=== PATIENT | male | born 1950 | race Caucasian/White ===

== ENCOUNTER → 2018-10-02 | Outpatient (CLI) | payer MEDICARE, BC ==
[2018-10-02 08:39] LABS: HCT 54.8 % (39.0-53.0); HGB 17.5 gm/dL (13.0-17.5); MCH 30.4 pg (25.0-35.0); MCV 94.9 fL (80.0-100.0); Platelet Count 212 k/uL (150-450); RBC 5.77 m/uL (4.30-5.90); RDW 13.5 % (11.5-15.5); WBC 4.9 k/uL (3.8-10.6)
[2018-10-02 15:43] LABS: Albumin 4.6 g/dL (3.80-4.90); Albumin/Globulin Ratio 2.71 (1.20-2.10); Anion Gap 9.2 mmol/L (4.00-12.00); Calcium 9.2 mg/dL (8.7-10.3); Carbon Dioxide 23.8 mmol/L (21.6-31.8); Globulin 1.7 g/dL (2.1-3.7); Potassium 4.6 mmol/L (3.5-5.5); Total Bilirubin 0.6 mg/dL (0.3-1.2); Total Protein 6.3 g/dL (6.2-8.2)
== END | disposition home or self-care (01) ==
LOC: LABWHC1 07:01
PROVIDERS: ATTEND Surgery
DX: E89.6 Postprocedural adrenocortical (-medullary) hypofunction (principal)
CPT/HCPCS: 36415; 80053; 85027

== ENCOUNTER → 2019-02-01 | Outpatient (CLI) | payer BC, MEDICARE ==
[2019-02-01 13:31] LABS: Basophils % (A) 1 %; Eosinophils # (A) 0.1 k/uL (0-0.7); Eosinophils % (A) 2 %; HGB 17.4 gm/dL (13.0-17.5); Lymphocytes # (A) 1.2 k/uL (1.0-4.8); Lymphocytes % (A) 18 %; MCHC 33.5 g/dL (31.0-37.0); MCV 92.3 fL (80.0-100.0); Mean Platelet Volume 6.8; Monocytes # (A) 0.6 k/uL (0-1.0); Monocytes % (A) 9 %; Neutrophils # (A) 4.4 k/uL (1.3-7.7); Neutrophils % (A) 68 %; Platelet Count 213 k/uL (150-450); RBC 5.63 m/uL (4.30-5.90); RDW 13.2 % (11.5-15.5); WBC 6.5 k/uL (3.8-10.6)
[2019-02-01 16:03] LABS: Erythrocyte Sedimentation Rate 4 mm/hr (0-15)
== END ==
LOC: LABWHC1 12:04
PROVIDERS: ATTEND Psychiatry & Neurology Neurology
DX: R51 Headache (principal)
CPT/HCPCS: 36415; 85025; 85652; 86140

== ENCOUNTER → 2019-08-09 | Outpatient (CLI) | payer MEDICARE ==
--- NOTE | 2019-08-09 09:00 | FL ---
EXAMINATION TYPE: FL barium swallow DATE OF EXAM: 08/09/2019 CLINICAL HISTORY: Dysphasia for 3 months centered at thoracic inlet upper esophagus. TECHNIQUE: A double contrast esophagram is performed utilizing air and barium. A total of 37 second s of fluoroscopic time was utilized during procedure. 93 spot images are saved to PACS. COMPARISON: None FINDINGS: The esophagus shows some episodes of dysmotility with abnormal secondary and tertiary contr actions particularly when drinking prone position. No evidence of fixed hiatal hernia or stricture n oted. No diverticulum is present. No significant gastroesophageal reflux was seen during real time pe rformance of this study. IMPRESSION: Mild underlying esophageal dysmotility otherwise unremarkable study.
== END | disposition home or self-care (01) ==
LOC: RADUSWWP 07:41
PROVIDERS: ATTEND Otolaryngology
DX: K22.4 Dyskinesia of esophagus (principal)
CPT/HCPCS: 74220

== ENCOUNTER → 2020-05-29 | Outpatient (CLI) | payer MEDICARE ==
--- NOTE | 2020-05-29 10:39 | FL ---
EXAMINATION TYPE: FL barium swallow DATE OF EXAM: 05/29/2020 CLINICAL INDICATION: 70-year-old male R13.10, dysphagia and difficulty swallowing for 6 months. COMPARISON: 08/09/2019 Total Fluoroscopy Time: 2 minutes 30 seconds Total images: 41 FINDINGS: The swallowing mechanism is normal and hypopharyngeal anatomy is preserved. Mild residuals are noted in the piriform sinuses. The cervical and thoracic portions have a normal course and caliber. However, there is moderate dysmotility with tertiary peristaltic waves and some blunting in the secon debbie stripping waves. The mucosa is normal and no persistent filling defect is encountered. No hiatal hernia is present. No gastroesophageal reflux is identified. IMPRESSION: 1. No stricture, diverticulum, mucosal lesion, or suspicious filling defect along the esophagus. 2. Presbyesophagus with moderate dysmotility. 3. No hiatal hernia or gastroesophageal reflux identified.
== END | disposition home or self-care (01) ==
LOC: RADUSWWP 09:37
PROVIDERS: ATTEND Internal Medicine
DX: K22.8 Other specified diseases of esophagus (principal); R13.10 Dysphagia, unspecified
CPT/HCPCS: 74220

== ENCOUNTER 2020-12-27 07:51 | Day surgery (SDC) | payer MEDICARE ==
[2020-12-22 14:38] VITALS: BMI 32.1
[2020-12-27] MEDS ORDERED: SODIUM CHLORIDE 0.9% 500 ML 500 ML IV ONE (08:10)
[2020-12-27 08:14] LABS: Glucose,Whole Blood 111 mg/dL (75-99)
[2020-12-27 08:20] VITALS: TEMP 97.9
[2020-12-27] MEDS ORDERED: fentaNYL (PF) 50 MCG/ML 2 ML AMP ONE (08:46)
[2020-12-27] MEDS ORDERED: BENZOCAINE SPRAY 1 CAN MUCOUS MEM ONE (08:58)
[2020-12-27] MEDS ORDERED: fentaNYL (PF) 50 MCG/ML 2 ML AMP IM ONE (09:10)
[2020-12-27] MEDS: MIDAZOLAM 2 MG/2 ML VIAL IV ONE ×2 (09:10→09:13)
[2020-12-27] MEDS ORDERED: SODIUM CHLORIDE 0.9% 1,000 ML IV SCH (09:30)
[2020-12-27 10:01] VITALS: RESP 16
--- NOTE | 2020-12-27 10:24 | ECHOT ---
TRANSESOPHAGEAL ECHOCARDIOGRAM INDICATION: Evaluation of left atrial appendage. PROCEDURE: After explaining the procedure to the patient, its risks and the complications, his blood pressure, heart rate, O2 saturation was monitored. The throat was sprayed with Cetacaine. He received 2 mg intravenous Versed, 50 mcg intravenous fentanyl. The probe was introduced in the esophagus without difficulty. Images were obtained. Following that, the probe was removed. There was no immediate complication. FINDINGS: Left atrial size is mildly dilated. Left atrial appendage is normal. Left ventricular size and systolic function normal. The aortic valve appears normal. There is mild thickening of the posterior mitral valve leaflets with minimal prolapse and the tricuspid valve is normal. Descending thoracic aorta revealed mild atherosclerotic changes. No pericardial effusion was noted. Contrast bubble study revealed no evidence shunting across the interatrial septum. Doppler pulse wave and color Doppler obtained and revealed mild to moderate mitral with mild tricuspid regurgitation. There was no shunting by color Doppler study. CONCLUSION: 1. Mildly dilated left atrium with normal appearance of left atrial appendage. 2. Normal left ventricular size and systolic function. 3. Mild prolapse of the posterior mitral valve leaflets with mild to moderate mitral regurgitation. 4. Mild tricuspid regurgitation. 5. No shunting across the interatrial septum. 6. Mild atherosclerotic changes of the descending thoracic aorta. MMODL / IJN: [id number] /
[2020-12-27 11:13] VITALS: BP 104/58; PULSE 80
[2020-12-27] MEDS ORDERED: NON FORMULARY DRUG (Insulin Glargine 100 UNIT/ML Vial) SQ SCH (21:00)
[2020-12-27] MEDS ORDERED: LINAGLIPTIN 5 MG TABLET PO SCH (21:00)
[2020-12-27] MEDS ORDERED: metFORMIN 500 MG TAB PO SCH (21:00)
[2020-12-28] MEDS ORDERED: ATORVASTATIN 20 MG TAB PO SCH (09:00)
[2020-12-28] MEDS ORDERED: MULTIVITAMINS, THERA 1 EACH TAB PO SCH (09:00)
[2020-12-28] MEDS ORDERED: TAMSULOSIN 0.4 MG CAP.ER.24H PO SCH (09:00)
[2020-12-28] MEDS ORDERED: ASPIRIN 81 MG PO SCH (09:00)
== END 2020-12-27 10:52 | disposition home or self-care (01) ==
LOC: CATHCVL 07:51
PROVIDERS: ATTEND Internal Medicine Interventional Cardiology
DX: I08.1 Rheumatic disorders of both mitral and tricuspid valves (principal); I70.0 Atherosclerosis of aorta; I63.9 Cerebral infarction, unspecified; I10 Essential (primary) hypertension; E78.2 Mixed hyperlipidemia; E11.9 Type 2 diabetes mellitus without complications; Z87.891 Personal history of nicotine dependence; Z79.82 Long term (current) use of aspirin; Z79.4 Long term (current) use of insulin; Z79.899 Other long term (current) drug therapy
CPT/HCPCS: 93312; 93320; 93325; J2250; J3010

== ENCOUNTER 2021-01-23 07:18 | Day surgery (SDC) | payer MEDICARE ==
[2021-01-18 10:16] VITALS: BMI 31.5
[~2021-01-23 07:18] MED LIST: LIDOCAINE 1% (10MG/ML) FOR IV START INTRADERMA PRN
[2021-01-23 07:58] VITALS: TEMP 97.6
[2021-01-23 08:10] LABS: Glucose,Whole Blood 133 mg/dL (75-99)
[2021-01-23] MEDS: LACTATED RINGERS 1,000 ML IV SCH ×2 (08:10→08:24)
[2021-01-23] MEDS ORDERED: PROPOFOL 10 MG/ML 20 ML VIAL IV ONE (08:25)
--- NOTE | 2021-01-23 08:28 | P.GSHP ---
History of Present Illness H&P Date: 01/23/21 Chief Complaint: Colon cancer screening Patient here today for colonoscopy. Last colonoscopy approximately 5-6 years ago. Both parents with history of colon cancer. Patient says he had polyps 4. No bowel complaints currently. Past Medical History Past Medical History: Diabetes Mellitus, Hyperlipidemia, Hypertension Additional Past Medical History / Comment(s): has had "4 events with stroke like symptoms" has one kidney r/t benign tumor History of Any Multi-Drug Resistant Organisms: None Reported Past Surgical History: Hernia Repair, Joint Replacement, Orthopedic Surgery Additional Past Surgical History / Comment(s): Bilateral knee replacements, bilateral rotator cuff repairs, bilateral carpel tunnel surgies, adrenal gland removed. Past Anesthesia/Blood Transfusion Reactions: No Reported Reaction Additional Past Anesthesia/Blood Transfusion Reaction / Comment(s): no Past Psychological History: No Psychological Hx Reported Smoking Status: Former smoker Past Alcohol Use History: None Reported Additional Past Alcohol Use History / Comment(s): Quit smoking in 1979. Past Drug Use History: None Reported - Past Family History Mother Family Medical History: Cancer Additional Family Medical History / Comment(s): Colorectal and throat cancer. Father Family Medical History: Cancer Additional Family Medical History / Comment(s): Colorectal cancer. Medications and Allergies Home Medications Medication Instructions Recorded Confirmed Type Atorvastatin [Lipitor] 20 mg PO DAILY 04/07/14 01/23/21 History Multivitamins, Thera [Multivitamin] 1 each PO DAILY 04/07/14 01/23/21 History Aspirin [Adult Low Dose Aspirin EC] 81 mg PO DAILY 12/22/20 01/18/21 History Canagliflozin [Invokana] 300 mg PO DAILY 12/22/20 01/23/21 History Insulin Glargine [Lantus] 40 unit SQ HS 12/22/20 01/23/21 History Tamsulosin [Flomax] 0.4 mg PO DAILY 12/22/20 01/23/21 History lisinopriL [Zestril] 2.5 mg PO HS 12/22/20 01/23/21 History sitaGLIPtin PHOS/metFORMIN HCL 1 each PO BID 12/22/20 01/23/21 History [Janumet 50-1,000 mg Tablet] Allergies Allergy/AdvReac Type Severity Reaction Status Date / Time hydromorphone HCl Allergy Nausea & Verified 01/18/21 10:01 [From Dilaudid] Vomiting Surgical - Exam Vital Signs Temp Pulse Resp BP Pulse Ox 97.6 F 89 18 139/75 97 01/23/21 07:55 01/23/21 07:55 01/23/21 07:55 01/23/21 07:55 01/23/21 07:55 Physical exam: General: Well-developed, well-nourished HEENT: Normocephalic, sclerae nonicteric Abdomen: Nontender, nondistended Extremities: No edema Neuro: Alert and oriented Results - Labs Abnormal Lab Results - Last 24 Hours (Table) 01/23/21 Range/Units 08:07 POC Glucose (mg/dL) 133 H (75-99) mg/dL Assessment and Plan (1) Colon cancer screening Narrative/Plan: Will proceed with colonoscopy Current Visit: Yes Status: Acute Code(s): Z12.11 - ENCOUNTER FOR SCREENING FOR MALIGNANT NEOPLASM OF COLON SNOMED Code(s): 139580369
--- NOTE | 2021-01-23 08:41 | P.PCN ---
Date of Procedure: 01/23/21 Procedure(s) Performed: PREOPERATIVE DIAGNOSIS: Colon cancer screening, family history of colon cancer, history of polyps POSTOPERATIVE DIAGNOSIS: Transverse colon polyp, diverticulosis PROCEDURE: Colonoscopy with snare polypectomy ANESTHESIA: MAC SURGEON: Eulogio Salgado M.D. SPECIMENS: Transverse colon polyp ENDOSCOPIC PROCEDURE: The patient was placed on the endoscopy table in the left decubitus position. The Olympus colonoscope was inserted into the anus and passed under direct visualization to the base of the cecum. The appendiceal orifice was visualized. From that point the scope was slowly withdrawn inspecting all surfaces carefully. There were no neoplastic inflammatory or polypoid lesions throughout the cecum and ascending colon. In the transverse colon a small polyp was identified and removed using the snare with cautery technique. The remainder of the transverse descending sigmoid and rectum appeared normal. The patient had extensive left-sided diverticulosis. Digital rectal examination was normal. The patient was taken to the recovery room in stable condition per anesthesia guidelines. RECOMMENDATIONS: Resume diet. Follow colonoscopy 5 years.
[2021-01-23 08:45] VITALS: RESP 16
[2021-01-23 09:03] VITALS: BP 109/72; PULSE 71
== END 2021-01-23 09:20 | disposition home or self-care (01) ==
LOC: ORWHC2ENDO 07:18
PROVIDERS: ATTEND Surgery
DX: Z12.11 Encounter for screening for malignant neoplasm of colon (principal); K63.5 Polyp of colon; K57.30 Diverticulosis of large intestine without perforation or abscess without bleeding; E11.9 Type 2 diabetes mellitus without complications; E78.5 Hyperlipidemia, unspecified; I10 Essential (primary) hypertension; E89.6 Postprocedural adrenocortical (-medullary) hypofunction; Z86.010 Personal history of colon polyps; Z98.890 Other specified postprocedural states; Z87.898 Personal history of other specified conditions; Z90.5 Acquired absence of kidney; Z86.018 Personal history of other benign neoplasm; Z96.653 Presence of artificial knee joint, bilateral; Z87.891 Personal history of nicotine dependence; Z79.899 Other long term (current) drug therapy; Z79.82 Long term (current) use of aspirin; Z79.4 Long term (current) use of insulin; Z88.5 Allergy status to narcotic agent; Z80.0 Family history of malignant neoplasm of digestive organs; Z80.8 Family history of malignant neoplasm of other organs or systems
CPT/HCPCS: 88305; 45385; J2704

== ENCOUNTER → 2021-12-28 | Outpatient (CLI) | payer MEDICARE ==
--- NOTE | 2021-12-28 13:32 | US ---
EXAMINATION TYPE: US carotid duplex BILAT DATE OF EXAM: 12/28/2021 COMPARISON: NONE CLINICAL HISTORY: G45.9 TIA. TIA EXAM MEASUREMENTS: RIGHT: Peak Systolic Velocity (PSV) cm/sec ----- Right CCA: 110 ----- Right ICA: 89.6 ----- Right ECA: 141 ICA/CCA ratio: 0.81 RIGHT: End Diastole cm/sec ----- Right CCA: 14.9 ----- Right ICA: 22.7 ----- Right ECA: 19.0 LEFT: Peak Systolic Velocity (PSV) cm/sec ----- Left CCA: 74.0 ----- Left ICA: 98.1 ----- Left ECA: 174 ICA/CCA ratio: 1.33 LEFT: End Diastole cm/sec ----- Left CCA: 16.1 ----- Left ICA: 18.9 ----- Left ECA: 26.3 VERTEBRALS (direction of flow): Right Vertebral: Antegrade Left Vertebral: Antegrade Rhythm: Normal Mild plaque bilateral bifurcations. Mildly increased velocities left ECA IMPRESSION: 1. No significant flow-limiting stenosis bilateral internal carotid arteries. 2. There may be some moderate narrowing between 50 and 69% of the left external carotid artery. Criteria for Assigning % of Stenosis / Diameter reduction (Estimation based on the indirect measurements of the internal carotid artery velocities (ICA PSV). 1. Normal (no stenosis)=ICA PSV < 125 cm/s: ratio < 2.0: ICA EDV<40 cm/s. 2. Less than 50% stenosis=ICA PSV < 125 cm/s: ratio < 2.0: ICA EDV<40 cm/s. 3. 50 to 69% stenosis=ICA PSV of 125 to 230 cm/s: ration 2.0 ? 4.0: ICA EDV 40-100 cm/s. 4. Greater than 70% stenosis to near occlusion= ICA PSV > 230 cm/s: ratio > 4.0: ICA EDV > 100 cm/s. 5. Near occlusion= ICA PSV velocities may be low or undetectable: variable ratio and ICA EDV. 6. Total occlusion=unable to detect flow.
--- NOTE | 2021-12-28 15:43 | CT ---
EXAMINATION TYPE: CT heart w calcium score DATE OF EXAM: 12/28/2021 COMPARISON: None. HISTORY: Screening for cardiovascular disorder. 213.9. Type [address] DLP: 76.3 mGycm Automated exposure control for dose reduction was used. CT CALCIUM SCORING Coronary calcium is a marker for plaque (fatty deposits) in a blood vessel or atherosclerosis (harden ing of the arteries). The presence and amount of calcium detected in a coronary artery by the CT sca n, indicates the presence and amount of atherosclerotic plaque. These calcium deposits appear years before the development of heart disease symptoms such as chest pain and shortness of breath. A calcium score is computed for each of the coronary arteries based upon the volume and density of th e calcium deposits. This can be referred to as your calcified plaque burden. It does not correspond directly to the percentage of narrowing in the artery but does correlate with the severity of the un derlying coronary atherosclerosis. PROCEDURE TECHNIQUE - Prospective Gating was used. Slice thickness: 3mm. Density threshold (HU): 130, Pixel threshold: 3, Algorithm: discrete. RESULTS Region: LM Calcium Score (Agatston): 62.76 Volume (mm3): 49.14 Mass (g): 16.38 Region: RCA Calcium Score ([place]at[place]): 100.49 Volume (mm3): 107.66 Mass (g): 35.89 Region: LAD Calcium Score ([place]atston): 426.24 Volume (mm3): 325.75 Mass (g): 108.58 Region: CX Calcium Score (Agatston): 102.33 Volume (mm3): 84.47 Mass (g): 28.16 Region: PDA Calcium Score (Agatston): 0` Volume (mm3): 0 Mass (g): 0 Total: Calcium Score (Agatston): 691.82 Volume (mm3): 567.03 Mass (g): 189.01 Visualized portion of the liver is heterogeneously hypodense consistent with diffuse fatty infiltrati on otherwise no suspicious incidental finding. IMPRESSION: Calcium Score: 401 or higher Implication: Extensive atherosclerotic plaque Risk of Coronary Artery Disease: High likelihood of at least one significant coronary narrowing.
== END | disposition home or self-care (01) ==
LOC: RADUSWWP 12:44
PROVIDERS: ATTEND Internal Medicine
DX: G45.9 Transient cerebral ischemic attack, unspecified (principal); E11.65 Type 2 diabetes mellitus with hyperglycemia
CPT/HCPCS: 75571; 93880

== ENCOUNTER → 2022-01-30 | Outpatient (CLI) | payer MEDICARE ==
--- NOTE | 2022-01-30 19:30 | CT ---
EXAMINATION TYPE: CT abdomen pelvis wo/w con DATE OF EXAM: 01/30/2022 COMPARISON: CT dated 11/04/2014 HISTORY: LEFT SIDED FLANK PAIN. HX OF ADRENAL GLAND REMOVED, BLOOD SUPPLY CUT OFF TO THAT KIDNEY AND DOES NOT FUNCTION. CT DLP: 2857.10 mGycm Automated exposure control for dose reduction was used. TECHNIQUE: Helical acquisition of images was performed from the lung bases through the pelvis. CONTRAST: Performed with Oral Contrast and with IV Contrast, patient injected with 100mL mL of Isovue 300. FINDINGS: Previous right adrenal resection. Unremarkable adrenalectomy bed. Atrophic end-stage right kidney, pr ogressed compared to the previous with multiple calcifications within. Unremarkable left adrenal and left kidney. Unremarkable urinary bladder. Prostatic concretion. Unremarkable seminal vesicles. Evident hepatic steatosis. With this limitation, no definite hepatic focal lesion identified. No radi odense gallbladder calculi. Unremarkable spleen. Tiny millimetric calcifications are seen within the pancreatic head which could represent sequela of previous pancreatitis. Unremarkable pancreas otherwi se. Scattered arterial atherosclerotic calcifications. 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 Unremarkable stomach. Second part of the duodenum diverticulum measurin g 4 cm. Unremarkable small bowel. Extensive sigmoid colon diverticulosis with thickened wall. Milder divertic ulosis of the remainder of the colon. Recommend correlation with coloscopy results. Normal appendix. Subcentimeter bilateral inguinal lymph nodes. No pathologically enlarged lymph nodes in the abdomen o r the pelvis. No sizable ascites. Coronary arterial calcifications. Degenerative changes of the lower thoracic and lumbar spine. No aggressive bone lesion. IMPRESSION: Atrophic end-stage right kidney. Unremarkable adrenalectomy bed. No evidence of local tumor recurrenc e or metastatic disease seen in the abdomen or the pelvis. Incidental findings as described above.
== END | disposition home or self-care (01) ==
LOC: RADCTMAIN 12:24
PROVIDERS: ATTEND Internal Medicine
DX: R10.9 Unspecified abdominal pain (principal)
CPT/HCPCS: 82565; 84520; 74178; 36415; Q9967

== ENCOUNTER → 2022-03-13 | Outpatient (CLI) | payer MEDICARE ==
--- NOTE | 2022-03-14 08:04 | XR ---
EXAMINATION TYPE: XR lumbar spine 2 or 3V DATE OF EXAM: 03/13/2022 Comparison: None Clinical History: 72-year-old male M47.816 spondylosis lumbar region Findings: Multiple surgical clips right upper quadrant. 5 lumbar type vertebral bodies. Hypertrophic facet arth ropathy throughout. Vertebral body heights are preserved. Atherosclerotic calcifications throughout t he abdominal aorta with ectasia up to 2.8 cm. Moderate degenerative disc space narrowing upper lumbar spine and mild within the mid and lower lumbar spine. Associated disc bulging and endplate spondylos is. There is trace grade 1 retrolisthesis L2-L3 and L3-L4 and grade 1 anterolisthesis L5-S1. Impression: 1. Hypertrophic facet arthropathy throughout. Trace grade 1 retrolisthesis L2-L3 and L3-L4. Grade 1 a nterolisthesis L5-S1. 2. [id number] multilevel degenerative disc disease. 3. No vertebral compression collapse.
== END | disposition home or self-care (01) ==
LOC: RADXRMAIN 10:52
PROVIDERS: ATTEND Internal Medicine
DX: M47.896 Other spondylosis, lumbar region (principal); M51.36 Other intervertebral disc degeneration, lumbar region
CPT/HCPCS: 72100

== ENCOUNTER → 2022-07-04 | Outpatient (CLI) | payer MEDICARE ==
--- NOTE | 2022-07-04 09:10 | MR ---
EXAMINATION TYPE: MR lumbar spine wo con DATE OF EXAM: 07/04/2022 COMPARISON: Outside lumbar spine x-ray March 13, 2022. CT abdomen and pelvis January 30, 2022 HISTORY: LOW BACK PAIN for 2 years. Spondylosis. TECHNIQUE: Multiplanar, multisequence imaging of the lumbar spine is performed without IV contrast. FINDINGS: Sagittal images of the lumbar spine redemonstrate vertebral body heights and alignment to a ppear satisfactory. There are prominent Schmorl nodes anterior inferior L1 and superior central L4 en dplates redemonstrated. Multilevel disc desiccation is seen but this space heights are fairly well ma intained. The conus medullaris is normal in position and signal ending superior L1 level. The bone marrow signal intensity is within normal limits. Mild to moderate multilevel anterior spurring is red emonstrated. Axial images show T12-L1 level to appear within normal limits. Axial images at the L1-L2 level show mild to moderate broad disc bulge mildly effacing the anterior t hecal sac. Patent bilateral neural foramina. Axial images at L2-L3 level appear within normal limits. Axial images at L3-L4 level show [id number] facet arthropathy and ligamentum flavum hypertrophy mildly effacing posterolateral thecal sac, there is mild bilateral anterior inferior neural foramina l narrowing. Axial images at L4-L5 level show moderate to advanced facet arthropathy and ligamentum flavum hypertr ophy bilaterally effacing the posterior lateral thecal sac. Mild broad disc bulge. Bilateral neural f oramina remain patent. Axial images at L5-S1 level show mild broad disc bulge. There is moderate facet arthropathy bilateral ly. Spinal canal is preserved. Bilateral neural foramina are patent. Marked atrophy and cortical thinning to the right kidney is redemonstrated. IMPRESSION: Multilevel degenerative changes in the lumbar spine as detailed above.
== END | disposition home or self-care (01) ==
LOC: RADMRIMAIN 08:05
PROVIDERS: ATTEND Orthopaedic Surgery
DX: M43.17 Spondylolisthesis, lumbosacral region (principal); M51.36 Other intervertebral disc degeneration, lumbar region
CPT/HCPCS: 72148

== ENCOUNTER → 2022-10-16 | Outpatient (CLI) | payer MEDICARE ==
[2022-10-16 09:20] VITALS: BP 144/83; PULSE 77; RESP 16; TEMP 98.5
--- NOTE | 2022-10-16 14:40 | P.PAINPG ---
PQRS Measure Charge Sheet Comment: HISTORY OF PRESENT ILLNESS: 72 yr old male as a referral from Dr Galeano presents today w severe and chronic LBP secondary to DDD, spondylosis and facet arthropathy without myelopathy for evaluation. Pt states pain level is at 7/10 in intensity, constant, localized in the lower aspects of the lumbar spine, achy in character w shooting pain towards the BLEs. Pain is provoked by standing/walking 15 minutes. Pain is alleviated by indications (multiple), heat, PT which was ineffective, daily home stretching regimen, repositioning and rest. PMH: Diabetes Mellitus, Hyperlipidemia, HTN, Benign Kidney Tumor PSH: Hernia Repair, BL Knee Replacement, BL RCT Repair, BL CTR, Adrenal Gland Resection, Colonoscopy (2020) SH: Former tobacco user (Quit 1979), No ETOH abuse, No illicit drug use. FH: Mo- Colorectal & Esophageal CA. Fa- Colorectal CA. All: See list Meds: See list REVIEW OF ORGAN SYSTEMS: CONSTITUTIONAL: No fevers or chills. No recent weight loss. NEUROLOGICAL: + numbness and tingling along the distal extremities. No seizure disorders or headaches. MUSCULOSKELETAL: + pain PSYCHIATRIC: Denies current depression or suicidal thoughts. Physical Examinations : Constitutional : Cooperative , not in acute distress . Neurologic : Cranial nerve II to XII intact. No focal neurological deficits. Psychiatric : alert & oriented x 3. Matching mood & appropriate affect. Judgment & insight intact. Musculoskeletal : Cervical Spine Motor strength in the deltoid and biceps: Normal right side. Normal Left side Motor strength biceps and the wrist extensors: Normal right side . Normal left side Motor strength in the triceps muscle: Normal right side. Normal left side Deep tendon reflexes: Normal at the biceps. Normal at Brachioradialis. Normal at triceps Vertebral body tenderness to deep palpation over Cervical facet loading test: positive bilaterally Spurling test: positive bilaterally Neck distraction test: positive bilaterally Erlinda sign: positive bilaterally Lumbar spine Motor strength lower extremities ,thigh and legs 5/5 Right side , 5/5 Left side Deep tendon reflexes : Normal Knee Jerk. Normal Ankle Jerk Vertebral body tenderness over Lumbar facet Loading Test: positive Right / positive Left +jump reflex over BL L4-L5, L5-S1, R>L Range of motion of the lumbar spine Flexion 30 degrees, extension 10 degrees Straight Leg Raise test: Left/ Right positive at degree Angella test: positive right / positive left. Severe tenderness over the Sacroiliac joint on the Right / Left sides Gaenslen test: positive bilaterally Seated flexion test: positive bilaterally. Sacral spine : Severe tenderness over the Sacroiliac joint: right side / left side Range of motion: Flexion of the lumbar spine <60 degrees Range of motion: Extension of the lumbar spine <20 degrees Gaenslen's Test positive Terrell's Test positive Angella test: positive right side / left side Thigh Thrust Test Sacral Thrust Test Imaging: MRI without contrast of the lumbar spine from 07/04/22 reviewed Assessment/ Plan : Lumbar DDD Recommendation of MBB L4-L5, L5-S1 #1. May need a series of injections, up until RFA, for optimal pain relief. Risks, benefits of procedure discussed and patient verbalized understanding. Admits to aspirin or anti- coagulant use or medical history of diabetes. Protocol for discontinuation/ continuation of medications geoff procedure discussed. All questions answered. I have spent greater than 30 minutes on patient care today. Dr Richard was available by phone for the evaluation of this patient. The time was used to review the medical records including relevant urine studies and Prescription history (MAPs), review of the available imaging, evaluation and examination of the patient, coordination of care with the medical staff and if applicable referring physicians, as well as creation of the medical record PQRS Narrative: Smoking Status Former smoker Home Medications: Ambulatory Orders Atorvastatin [Lipitor] 20 mg PO DAILY 04/07/14 Multivitamins, Thera [Multivitamin] 1 each PO DAILY 04/07/14 Aspirin [Adult Low Dose Aspirin EC] 81 mg PO DAILY 12/22/20 Canagliflozin [Invokana] 300 mg PO DAILY 12/22/20 Insulin Glargine [Lantus] 40 unit SQ HS 12/22/20 Tamsulosin [Flomax] 0.4 mg PO DAILY 12/22/20 lisinopriL [Zestril] 2.5 mg PO HS 12/22/20 sitaGLIPtin PHOS/metFORMIN HCL [Janumet 50-1,000 mg Tablet] 1 each PO BID 12/22/20 Controlled Substance Measures - Controlled Substance Measures Is patient prescribed a controlled substance at discharge?: No
== END ==
LOC: PNWHC3 08:45
PROVIDERS: ATTEND Specialist
DX: M51.36 Other intervertebral disc degeneration, lumbar region (principal); Z79.01 Long term (current) use of anticoagulants; E11.9 Type 2 diabetes mellitus without complications; Z79.84 Long term (current) use of oral hypoglycemic drugs; Z88.5 Allergy status to narcotic agent; Z87.891 Personal history of nicotine dependence
CPT/HCPCS: 99211

== ENCOUNTER 2022-11-01 10:22 | Day surgery (SDC) | payer MEDICARE ==
[2022-11-01] MEDS ORDERED: LACTATED RINGERS 1,000 ML IV ONE ×2 (10:35→11:21)
[2022-11-01 10:55] VITALS: TEMP 97.4
[2022-11-01 10:57] LABS: Glucose,Whole Blood 120 mg/dL (70-110)
[2022-11-01] MEDS ORDERED: ROPIVACAINE 5 MG/ML 20 ML AMPULE ONE (10:59)
[2022-11-01] MEDS ORDERED: methylPREDNISolone ACETATE 40 MG/ML 1 ML VIAL ONE (10:59)
[2022-11-01] MEDS ORDERED: MIDAZOLAM 2 MG/2 ML VIAL ONE (10:59)
[2022-11-01] MEDS ORDERED: fentaNYL (PF) 50 MCG/ML 2 ML AMP ONE (10:59)
--- NOTE | 2022-11-01 11:15 | P.PCN ---
Date of Procedure: 11/01/22 Procedure(s) Performed: PREOPERATIVE DIAGNOSIS : 1- Lumbar spondylosis with Facet Arthropathy without myelopathy . 2- Lumber degenerative disc disease POSTOPERATIVE DIAGNOSIS: 1- Lumbar spondylosis with Facet Arthropathy without myelopathy . 2- Lumber degenerative disc disease PROCEDURE: Diagnostic bilateral L3 , L4 , and L5 medial branch block under fluoroscopy guidance(fluoroscopy images available in the radiology Department ) ( To target the facet joint between bilateral L4-5 , and L5-S1 )# 1st ANESTHESIA:, Monitored anesthesia care as per anesthesia department. EBL: Minimal COMPLICATION: None PROCEDURE INDICATION: Chronic low back pain secondary to Facet arthropathy unresponsive to conservative treatment. PROCEDURE DESCRIPTION: the patient was seen and identified in the preop holding area , risks and benefits and possible complications of the procedure and alternative were discussed with the patient, and the patient agreed to proceed with the procedure and signed the consent and vital signs monitored during the procedure and fluoroscopy was used to maximize the benefit and accuracy of the needle placement, and sedation was given to decrease patient a nxiety, patient was taken to the procedure room and placed in prone position vital signs monitored in the back prepped with chlorhexidine X3 then under strict sterile technique using a right oblique fluoroscopy ,the junction of the transverse process and the superior articulating process of the right L3 , L4 , and L5 vertebra which corresponding to the fluoroscopy image of the eye of the Shashi dog on the block side for the medial branches and subsequently , after local infiltration of skin and subcu tissuies with Ropivacaine 0.5 % , one mL at each level ,then 22-gauge Quincke-type needles , 3 needle was used , each one of them placed at the junction of the base of the transverse process and the superior articular process at the appropriate level, and the needle was advanced until the periosteum contacted, needle placement confirmed with AP oblique and lateral view and after appropriate needle placement confirmed, and after negative aspiration for heme and CSF and there was no paresthesia 1-1/2 mL of Ropivacaine 0.5% mixed with 20 mg Depo-Medrol , then half mL injected at each level after negative aspiration the needle subsequently removed and the same procedure repeated for the left side at left side at L3 , L4 and L5 levels. At the end of the procedure and the needles removed and a bandage applied after the skin was cleaned the cleaning solution patient taken to recovery room in stable condition and monitors in the recovery room for 20-30 minutes and discharged home in stable condition after discharge criteria met and patient will follow up with the pain clinic in 2-4 weeks
[2022-11-01] MEDS ORDERED: IV FLUID CONTINUATION 600 ML IV ONE (11:21)
[2022-11-01 11:44] VITALS: BP 120/64; PULSE 70; RESP 17
--- NOTE | 2022-11-01 11:54 | FL ---
Fluoroscopy INDICATION: Pain FINDINGS: Fluoroscopy time: 8 seconds. Images obtained: 4. IMPRESSIONS: 1. Documentation of fluoroscopy.
== END 2022-11-01 11:58 | disposition home or self-care (01) ==
LOC: ORPAIN 10:22
PROVIDERS: ATTEND Specialist
DX: M47.816 Spondylosis without myelopathy or radiculopathy, lumbar region (principal); M51.36 Other intervertebral disc degeneration, lumbar region; G89.29 Other chronic pain; Z98.890 Other specified postprocedural states; Z85.858 Personal history of malignant neoplasm of other endocrine glands; Z90.89 Acquired absence of other organs; Z88.8 Allergy status to other drugs, medicaments and biological substances
CPT/HCPCS: 64493; 64494; J2250; J1030; J3010; J2795

== ENCOUNTER 2022-11-29 08:46 | Day surgery (SDC) | payer MEDICARE ==
[~2022-11-29 08:46] MED LIST changes: +LACTATED RINGERS 1,000 ML IV SCH; -LIDOCAINE 1% (10MG/ML) FOR IV START INTRADERMA PRN
[2022-11-29 09:05] VITALS: TEMP 98
[2022-11-29 09:11] LABS: Glucose,Whole Blood 118 mg/dL (70-110)
[2022-11-29] MEDS ORDERED: ROPIVACAINE 5 MG/ML 20 ML AMPULE ONE (09:24)
[2022-11-29] MEDS ORDERED: TRIAMCINOLONE ACETONIDE 40 MG/ML 1 ML VIAL ONE (09:24)
[2022-11-29] MEDS ORDERED: MIDAZOLAM 2 MG/2 ML VIAL ONE (09:26)
--- NOTE | 2022-11-29 09:42 | P.PCN ---
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 2- Lumber degenerative disc disease POSTOPERATIVE DIAGNOSIS: 1- Lumbar spondylosis with Facet Arthropathy without myelopathy . 2- Lumber degenerative disc disease PROCEDURE: Diagnostic bilateral L4 -5 , and L5-S1 medial branch block under fluoroscopy Physician: Anila Paul MD ANESTHESIA: Local with 1% lidocaine; IV moderate conscious sedation with Versed 2 mg with anesthesia Department . EBL: Negligible COMPLICATION: None. PROCEDURE INDICATION: Chronic low back pain secondary to Facet arthropathy unresponsive to conservative treatment. PROCEDURE DESCRIPTION: the patient was seen and identified in the preop holding area , risks and benefits and possible complications of the procedure and alternatives were discussed with the patient, and the patient agreed to proceed with the procedure and signed the consent. IV was started and vital signs monitored during the procedure and fluoroscopy was used to maximize the benefit and accuracy of the needle placement, sedation was given to decrease patient anxiety, patient was taken to the procedure room and placed in prone position vital signs monitored. The patient was brought into the procedure room and placed in prone position. Skin was prepped with Chloraprep and draped in a sterile manner. Lidocaine 1% was used to numb the skin up at the target points that were chosen as follows: at the L5-S1 level which corresponds to the dorsal ramus of L5 the target points were at the superior medial aspect of the sacral ala on each side of the spine on the AP view of fluoroscopy, and for the L3 and L4 medial branches the target points were the connection between the transverse process and the superior articular process of L4 and L5 respectively on the oblique views of fluoroscopy. I used 22-gauge 5 inch Quincke spinal needles for this procedure and after contacting bone at the target points mentioned above I injected 1 mL of a mixture of Kenalog 40 mg +5 MLS of Ropivacaine 0.5% PF . Patient tolerated procedure well. At the end of the procedure the needles removed and a bandage applied after the skin was cleaned the cleaning solution. patient was then taken to the recovery room in stable condition and monitored in the recovery room for 20-30 minutes and discharged home in stable condition after discharge criteria met . A copy of the needle placement picture was saved to the C-arm machine. Sedation time: Sedation was provided by the anesthesia Department
[2022-11-29] MEDS ORDERED: IV FLUID CONTINUATION 650 ML IV ONE (09:48)
--- NOTE | 2022-11-29 09:53 | FL ---
Intraoperative/procedural fluoroscopic services were provided for lumbar facet block. Total fluorosco py time is 7 seconds with a total of 4 submitted images to PACS. Please see the operative note for fu rther details.
[2022-11-29 10:20] VITALS: BP 110/75; PULSE 104; RESP 18
== END 2022-11-29 10:22 | disposition home or self-care (01) ==
LOC: ORPAIN 08:46
PROVIDERS: ATTEND Anesthesiology
DX: M47.816 Spondylosis without myelopathy or radiculopathy, lumbar region (principal); M51.36 Other intervertebral disc degeneration, lumbar region; G89.29 Other chronic pain; Z88.5 Allergy status to narcotic agent; E11.9 Type 2 diabetes mellitus without complications; E78.5 Hyperlipidemia, unspecified; Z87.891 Personal history of nicotine dependence; Z79.82 Long term (current) use of aspirin; Z96.659 Presence of unspecified artificial knee joint; Z98.890 Other specified postprocedural states; Z79.83 Long term (current) use of bisphosphonates; Z79.01 Long term (current) use of anticoagulants; Z79.84 Long term (current) use of oral hypoglycemic drugs; Z79.899 Other long term (current) drug therapy
CPT/HCPCS: 64493; 64494 ×2; J2250; J3301; J2795

== ENCOUNTER → 2022-12-16 | Outpatient (CLI) | payer MEDICARE ==
[2022-12-16 09:17] VITALS: BP 116/71; PULSE 82; RESP 18; TEMP 98.2
--- NOTE | 2022-12-16 15:22 | P.PAINPG ---
PQRS Measure Charge Sheet Comment: A 72 yr old male with a history of severe and chronic low back pain secondary to lumbar DDD and spondylosis with facet arthropathy without myelopathy presents today for evaluation s/p BL facet block of the medial branches L4-L5, L5-S1 #2. Pt states he experienced 100 % pain relief x 1 day s/p both procedures. Pain level is provoked at 7 /10 in intensity, constant, localized in the lower lumbar spine, sharp in character w shooting towards the BL flanks. Pain is provoked by standing/ walking for periods of 10 min or more. Pain is alleviated with medications, injections, heat, PT in 2021 which provided little relief, home exercise as tolerated, repositioning and rest. Interventional pain procedures completed include BL L3-L5 x1 Patient is currently on Percocet, Flexeril Patient denies any side effects of the medication(s), denies excessive drowsiness or sleepiness, denies suicidal ideation and reports that the current pain medication is helping to control the pain and improve activities of daily living. Patient denies any motor or sensory deficits. Patient denies any fever or night sweats, denies any change in the bowel movements or urination. Physical Examination: -Constitutional: Cooperative. Not in acute distress . - Neurologic: Cranial nerve II to XII intact. No focal neurological defi cits. - Psychatric: Alert & oriented x 3. Matching mood & appropriate affect. Judgment and insight intact. - Musculoskeletal: Cervical spine: Muscle bulk/ tone/ strength in the bilateral upper extremities normal Vertebral body tenderness to palpation over Spurling test positive Distraction test positive Facet loading test positive Thoracic spine Muscle bulk / tone/ strength in the bilateral paraspinal muscles normal Vertebral body tender to palpation over Facet loading test positive Lumbar spine: Motor bulk/ tone/ strength lower extremities , thigh and legs : 5/5 Deep tendon reflexes : Normal Knee Jerk. Normal Ankle Jerk . Vertebral body tenderness to palpation over Lumbar Facet Loading Test positive jump reflex over BL L4-L5, L5-S1 facets Straight Leg Raise: positive at 30 degrees right side/ left side Gaenslen's Test positive Sacral spine : Severe tenderness over the Sacroiliac joint: right side / left side Range of motion: Flexion of the lumbar spine <60 degrees Range of motion: Extension of the lumbar spine <20 degrees Gaenslen's Test positive Angella test: positive right side / left side Thigh Thrust Test Sacral Thrust Test Assessment and plan: Chronic low back pain secondary to lumbar degenerative disc disease, spondylosis with facet arthropathy without myelopathy Recommendation of BL RFA L4-L5, L5-S1. Pt exhibited sufficient pain relief w prior BL facet blocks of the medial branches. Risks, benefits of procedure discussed and pt verbalized understanding. Admits to anticoagulant use or medical history of diabetes. Protocol for discontinuation/ continuation of medications geoff procedure discussed. All patient questions answered I have spent less than 30 minutes on patient care today. Dr Richard was available by phone for the evaluation of this patient. The time was used to review the medical records including relevant urine studies and Prescription history (MAPs), review of the available imaging, evaluation and examination of the patient, coordination of care with the medical staff and if applicable referring physicians, as well as creation of the medical record - Pain Location Lower Back Non-Pharmacological Interventions: Heat, Home Exercise, Inactivity, Physical Therapy, Position/Reposition, Sitting, Stretching Pharmacological Interventions: Block, PRN Medication PQRS Narrative: Smoking Status Former smoker Hx Alcohol Use (MH) No Home Medications: Ambulatory Orders Atorvastatin [Lipitor] 20 mg PO DAILY 04/07/14 Multivitamins, Thera [Multivitamin] 1 each PO DAILY 04/07/14 Aspirin [Adult Low Dose Aspirin EC] 81 mg PO DAILY 12/22/20 Insulin Glargine [Lantus] 50 unit SQ HS 12/22/20 Tamsulosin [Flomax] 0.4 mg PO DAILY 12/22/20 lisinopriL [Zestril] 2.5 mg PO HS 12/22/20 sitaGLIPtin PHOS/metFORMIN HCL [Janumet 50-1,000 mg Tablet] 1 each PO BID 12/22/20 Dapagliflozin Propanediol [Farxiga] 10 mg PO DAILY 11/29/22 Repaglinide [Prandin] 2 mg PO TID 11/29/22 Controlled Substance Measures - Controlled Substance Measures Is patient prescribed a controlled substance at discharge?: No
== END ==
LOC: PNWHC3 08:52
PROVIDERS: ATTEND Specialist
DX: M47.816 Spondylosis without myelopathy or radiculopathy, lumbar region (principal); M51.36 Other intervertebral disc degeneration, lumbar region; E11.9 Type 2 diabetes mellitus without complications; Z79.4 Long term (current) use of insulin; Z79.84 Long term (current) use of oral hypoglycemic drugs; Z88.5 Allergy status to narcotic agent; Z87.891 Personal history of nicotine dependence
CPT/HCPCS: 99211

== ENCOUNTER → 2023-02-10 | Outpatient (CLI) | payer MEDICARE ==
[2023-02-10 09:25] VITALS: BP 134/76; PULSE 81; RESP 118; TEMP 98.8
--- NOTE | 2023-02-10 14:16 | P.PAINPG ---
PQRS Measure Charge Sheet Comment: A 72 yr old male with a history of severe and chronic LBP x 9 yrs secondary to lumbar DDD and spondylosis with facet arthropathy without myelopathy presents today for evaluation s/p BL RFA L4-L5, L5-S1. Pt states he experienced 85 % pain relief s/p procedure. Pain level is provoked at 1/10 in intensity, constant, localized in the lumbar spine, dull in character w/o shooting pain. Pain is provoked by over activity. Pain is alleviated with heat, repositioning, injections and rest. Interventional pain procedures completed include BL MBB L3-L5 x2 Patient is currently on DENIES Patient denies any side effects of the medication(s), denies excessive drowsiness or sleepiness, denies suicidal ideation and reports that the current pain medication is helping to control the pain and improve activities of daily living. Patient denies any motor or sensory deficits. Patient denies any fever or night sweats, denies any change in the bowel movements or urination. Physical Examination: -Constitutional: Cooperative. Not in acute distress . - Neurologic: Cranial nerve II to XII intact. No focal neurological d eficits. - Psychatric: Alert & oriented x 3. Matching mood & appropriate affect. Judgment and insight intact. - Musculoskeletal: Cervical spine: Muscle bulk/ tone/ strength in the bilateral upper extremities normal Vertebral body tenderness to palpation over Spurling test positive Distraction test positive Facet loading test positive TTP Thoracic spine Muscle bulk / tone/ strength in the bilateral paraspinal muscles normal Vertebral body tender to palpation over Facet loading test positive TTP Lumbar spine: Motor bulk/ tone/ strength lower extremities , thigh and legs : 5/5 Deep tendon reflexes : Normal Knee Jerk. Normal Ankle Jerk . Vertebral body tenderness to palpation over Lumbar Facet Loading Test positive Straight Leg Raise: positive at 30 degrees right side/ left side Gaenslen's Test positive Sacral spine : Severe tenderness over the Sacroiliac joint: right side / left side Range of motion: Flexion of the lumbar spine <60 degrees Range of motion: Extension of the lumbar spine <20 degrees Gaenslen's Test positive right side / left side Angella test: positive right side / left side Thigh Thrust Test positive right side / left side Sacral Thrust Test positive right side / left side Assessment and plan: Chronic LBP secondary to lumbar DDD, spondylosis with facet arthropathy without myelopathy Pt exhibited sufficicient and substantial pain relief w RFA procedure. He will manage residual pain at home and may return to this clinic on an as needed basis. All questions answered. I have spent less than 30 minutes on patient care today. Dr Richard was available by phone for the evaluation of this patient. The time was used to review the medical records including relevant urine studies and Prescription history (MAPs), review of the available imaging, evaluation and examination of the patient, coordination of care with the medical staff and if applicable referring physicians, as well as creation of the medical record PQRS Narrative: Smoking Status Former smoker Hx Alcohol Use (MH) No Home Medications: Ambulatory Orders Atorvastatin [Lipitor] 20 mg PO DAILY 04/07/14 Multivitamins, Thera [Multivitamin] 1 each PO DAILY 04/07/14 Aspirin [Adult Low Dose Aspirin EC] 81 mg PO DAILY 12/22/20 Insulin Glargine [Lantus] 50 unit SQ HS 12/22/20 Tamsulosin [Flomax] 0.4 mg PO DAILY 12/22/20 lisinopriL [Zestril] 2.5 mg PO HS 12/22/20 sitaGLIPtin PHOS/metFORMIN HCL [Janumet 50-1,000 mg Tablet] 1 each PO BID 12/22/20 Dapagliflozin Propanediol [Farxiga] 10 mg PO DAILY 11/29/22 Baclofen 10 mg PO Q12HR PRN 12/16/22 HYDROcodone/APAP 5-325MG [[place] 5-325] 2 tab PO Q6HR PRN 12/16/22 Tirzepatide [Mounjaro] 2.5 mg SQ WE 01/14/23 Controlled Substance Measures - Controlled Substance Measures Is patient prescribed a controlled substance at discharge?: No
== END ==
LOC: PNWHC3 08:45
PROVIDERS: ATTEND Specialist
DX: M51.36 Other intervertebral disc degeneration, lumbar region (principal); M47.816 Spondylosis without myelopathy or radiculopathy, lumbar region; Z87.891 Personal history of nicotine dependence; Z88.5 Allergy status to narcotic agent
CPT/HCPCS: 99211

== ENCOUNTER 2023-05-15 11:16 | Observation (INO) | payer MEDICARE ==
[2023-05-15] MEDS ORDERED: SODIUM CHLORIDE 0.9% 1,000 ML IV ONE (11:58)
[2023-05-15 12:38] LABS: Appearance,Urine Clear (Clear); Bilirubin,Urine Negative (Negative); Blood,Urine Negative (Negative); Color,Urine Yellow; Glucose,Urine (UA) 4+ (Negative); Ketones,Urine Negative (Negative); Leukocyte Esterase,Urine Negative (Negative); Nitrite,Urine Negative (Negative); PH, Urine 5.5 (5.0-8.0); Protein,Urine Trace (Negative); Specific Gravity,Urine 1.029 (1.001-1.035); Urobilinogen,Urine <2.0 mg/dL (<2.0)
[2023-05-15 12:39] LABS: Basophils % (A) 0 %; Eosinophils # (A) 0.1 k/uL (0-0.7); Eosinophils % (A) 1 %; HCT 46.2 % (39.0-53.0); HGB 15.5 gm/dL (13.0-17.5); Lymphocytes # (A) 0.7 k/uL (1.0-4.8); Lymphocytes % (A) 14 %; MCHC 33.6 g/dL (31.0-37.0); MCV 92.1 fL (80.0-100.0); Mean Platelet Volume 7.7; Monocytes # (A) 0.5 k/uL (0-1.0); Monocytes % (A) 9 %; Neutrophils # (A) 3.9 k/uL (1.3-7.7); Neutrophils % (A) 73 %; Platelet Count 250 k/uL (150-450); RBC 5.01 m/uL (4.30-5.90); RDW 13.9 % (11.5-15.5); WBC 5.3 k/uL (3.8-10.6)
[2023-05-15 12:57] LABS: Amphetamine Screen,Urine Not Detected (NotDetected); Barbiturate Screen,Urine Not Detected (NotDetected); Benzodiazepines Screen,Urine Not Detected (NotDetected); Cocaine Screen,Urine Not Detected (NotDetected); Methadone Screen, Urine Not Detected (NotDetected); Opiate Screen,Urine Not Detected (NotDetected); Oxycodone Screen, Urine Not Detected (NotDetected); Phencyclidine Screen,Urine Not Detected (NotDetected); Tricyclic Antidepressant,Urine Not Detected (NotDetected); Urn Cannabinoid Scrn Detected (NotDetected)
[2023-05-15 13:02] LABS: Prothrombin Time 10.2 sec (9.0-12.0)
--- NOTE | 2023-05-15 13:15 | XR ---
EXAMINATION TYPE: XR chest 2V DATE OF EXAM: 05/15/2023 COMPARISON: NONE HISTORY: Shortness of breath TECHNIQUE: Frontal and lateral views of the chest are obtained. FINDINGS: Scattered senescent parenchymal changes noted. Hyperinflation compatible with COPD. No evidence for infiltrate. No evidence for atelectasis. Heart size is stable. Mediastinal structures are stable and grossly unremarkable. No evidence for hilar prominence. Degenerative changes dorsal spine. IMPRESSION: 1. No evidence for acute pulmonary disease.
--- NOTE | 2023-05-15 13:34 | CT ---
EXAMINATION TYPE: CT brain wo con CT DLP: 1133.4 mGycm, Automated exposure control for dose reduction was used. DATE OF EXAM: 05/15/2023 1:26 PM COMPARISON: Prior CT Brain from 06/11/2011, MRI brain 06/12/2011. CLINICAL INDICATION:Male, 73 years old with history of Altered mental status, Intermittent confusion, AMS since yesterday TECHNIQUE: Brain: Multiple axial CT images of the brain were obtained without IV contrast. Coronal and sagittal reformats reviewed. FINDINGS: Brain: Extra-axial spaces: No abnormal extra-axial fluid collections. Ventricular system: Within normal limits Cerebral parenchyma: Cerebral atrophy. No acute intraparenchymal hemorrhage or mass effect. The lindquist -white junction is well differentiated. Scattered hypoattenuating areas are seen within the white mat ter. Cerebellum: Remote left cerebellar ischemic injury. Nonspecific bilateral basal ganglia calcification s. Mass effect: No evidence of midline shift. Intracranial vasculature: Atherosclerotic calcifications of the intracranial vessels. Soft tissues: Normal. Calvarium/osseous structures: No depressed skull fracture. Paranasal sinuses and mastoid air cells: Clear Visualized orbits: Orbital contents are intact. IMPRESSION: 1. No acute intracranial process. 2. Nonspecific white matter changes, likely secondary to chronic small vessel ischemic disease. 3. Remote left cerebellar ischemic injury.
[2023-05-15 14:16] LABS: ALT 23 U/L (4-49); AST 22 U/L (17-59); African American GFR (CKD) >90 (>60 ml/min/1.73 sqM); Albumin 3.5 g/dL (3.5-5.0); Alcohol <10 mg/dL; Alkaline Phosphatase 87 U/L (38-126); Anion Gap 3 mmol/L; Blood Urea Nitrogen 11 mg/dL (9-20); Calcium 8.4 mg/dL (8.4-10.2); Carbon Dioxide 29 mmol/L (22-30); Chloride 104 mmol/L (98-107); Glucose 93 mg/dL (74-99); Non-African American GFR(CKD) >90 (>60 ml/min/1.73 sqM); Potassium 4.2 mmol/L (3.5-5.1); Sodium 136 mmol/L (137-145); Total Bilirubin 0.7 mg/dL (0.2-1.3); Total Protein 5.7 g/dL (6.3-8.2)
[2023-05-15 14:40] LABS: Glucose,Whole Blood 81 mg/dL (70-110)
[2023-05-15] MEDS ORDERED: ACETAMINOPHEN TAB 325 MG TAB PO PRN (14:54)
[2023-05-15] MEDS ORDERED: NALOXONE 0.4 MG/ML 1 ML VIAL IV PRN (14:54)
[2023-05-15] MEDS ORDERED: ONDANSETRON 4 MG/2 ML VIAL IVP PRN (14:54)
--- NOTE | 2023-05-15 15:39 | ED ---
General Adult HPI - General Chief complaint: Neuro Symptoms/Deficit Stated complaint: Poss TIA Time Seen by Provider: 05/15/23 11:49 Source: patient, RN notes reviewed, old records reviewed Mode of arrival: ambulatory Limitations: no limitations - History of Present Illness Initial comments: Patient is a 73-year-old male who presents emergency Department complaining of the brain fog and not acting like himself. Was sent by his PCP, Dr. Sam for possible admission as well as evaluation. Denies any chest pain or shortness of breath. Denies any abdominal pain, nausea, vomiting. Denies any urinary complaints. States he has been having these symptoms since yesterday. Feels lightheaded, and "out of it." Denies any obvious weakness or numbness. Has no other acute complaints at this time. No history of stroke as far as he knows. Patient states he had 4 baby aspirin prior to arrival. Presents for further evaluation. No fevers or sick contacts. Symptoms have been waxing and waning since yesterday. - Related Data Home Medications Medication Instructions Recorded Confirmed Multivitamins, Thera [Multivitamin] 1 each PO DAILY 04/07/14 05/15/23 Aspirin [Adult Low Dose Aspirin EC] 81 mg PO DAILY 12/22/20 05/15/23 Insulin Glargine [Lantus] 50 unit SQ HS 12/22/20 05/15/23 Tamsulosin [Flomax] 0.4 mg PO DAILY 12/22/20 05/15/23 lisinopriL [Zestril] 2.5 mg PO HS 12/22/20 05/15/23 sitaGLIPtin PHOS/metFORMIN HCL 1 tab PO BID 12/22/20 05/15/23 [Janumet 50-1,000 mg Tablet] Dapagliflozin Propanediol [Farxiga] 10 mg PO DAILY 11/29/22 05/15/23 Baclofen 10 mg PO Q12HR PRN 12/16/22 05/15/23 Atorvastatin [Lipitor] 40 mg PO HS 05/15/23 05/15/23 HYDROcodone/APAP 7.5-325MG [[place] 1 tab PO BID PRN 05/15/23 05/15/23 7.5-325] Tirzepatide [Mounjaro] 5 mg SQ WE 05/15/23 05/15/23 Allergies Allergy/AdvReac Type Severity Reaction Status Date / Time hydromorphone HCl Allergy Nausea & Verified 05/15/23 12:17 [From Dilaudid] Vomiting Review of Systems ROS Statement: Those systems with pertinent positive or pertinent negative responses have been documented in the HPI. Review of Systems: CONST: Denies fever EYES: Denies blurry vision ENT: Denies nasal congestion C/V: Denies Chest pain RESP: Denies shortness of breath GI: Denies abdominal pain : Denies dysuria SKIN: Denies rash. MSK: Denies joint pain. NEURO: Denies headache ROS Other: All systems not noted in ROS Statement are negative. Past Medical History Past Medical History: Diabetes Mellitus, Hyperlipidemia, Hypertension, Osteoarthritis (OA), Prostate Disorder Additional Past Medical History / Comment(s): has had "4 events with stroke like symptoms," couple of years ago. has one kidney r/t benign tumor, arthritis lower back. History of Any Multi-Drug Resistant Organisms: None Reported Past Surgical History: Hernia Repair, Joint Replacement, Orthopedic Surgery Additional Past Surgical History / Comment(s): bilateral knee replacement, bilateral rotator cuff repair. 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 throat cancer General Exam - General Exam Comments Initial Comments: General: Appears in no acute distress. HEAD: Normal with no signs of head trauma. EYES: PERRLA, EOMI, conjunctiva normal, no discharge. Pupils are 3 mm equal bilaterally. ENT: Hearing grossly intact, normal oropharynx. RESPIRATORY: Clear breath sounds bilaterally. No wheezes, rales, or rhonchi. C/V: Regular rate and rhythm. S1 and S2 auscultated, no edema, peripheral pulses 2+ and intact throughout ABD: Abd is soft, nontender, nondistended EXT: Normal range of motion, no obvious deformity SKIN: No rashes or lesions observed on exposed skin. NEURO: Alert and oriented 4. Cranial nerves II through XII are intact. No focal sensory strength deficits. Bilateral hand switchboard wirer weakness, equal b ilaterally. Patient has normal strength at the elbow, as well as shoulders on exam. Hand switchboard wirer weakness likely secondary to arthritis. GCS of 15. NIH is 0. Ambulates without difficulty. Cerebellar function within acceptable presents as evidenced by normal finger to nose testing and [id number] testing. Limitations: no limitations Course Vital Signs 05/15/23 11:16 Temperature 98.2 F Pulse Rate 71 Respiratory 18 Rate Blood Pressure 136/83 O2 Sat by Pulse 96 Oximetry Medical Decision Making - Medical Decision Making Was pt. sent in by a medical professional or institution (, PA, VEN[employer]IAN BL[employer]ER [employer] REPAIRER, urgent care, hospital, or retirement...) When possible be specific @ -No Did you speak to anyone other than the patient for history (EMS, parent, family, police, friend...)? What history was obtained from this source @ -No Did you review nursing and triage notes (agree or disagree)? Why? @ -I reviewed and agree with nursing and triage notes Were old charts reviewed (outside hosp., previous admission, EMS record, old EKG, old radiological studies, urgent care reports/EKG's, retirement records)? Report findings @ -No old charts were reviewed Differential Diagnosis (chest pain, altered mental status, abdominal pain women, abdominal pain men, vaginal bleeding, weakness, fever, dyspnea, syncope, headache, dizziness, GI bleed, back pain, seizure, CVA, palpatations, mental health, musculoskeletal)? @ -Differential Altered Mental Status: Hypoglycemia, DKA, hypercapnia, ETOH, overdose, CO poisoning, trauma, myxedema coma, HTN encephalopathy, infection, encephalitis, psychosis, intercranial hemorrhage, hepatic encephalopathy, meningitis, CVA, this is not meant to be an all-inclusive list EKG interpreted by me (3pts min.). @ -As above X-rays interpreted by me (1pt min.). @ -X-ray reveals no obvious acute cardio polyp process, infiltrate. CT interpreted by me (1pt min.). @ -CT brain reveals no obvious acute intracranial process. Radiology does note a old left cerebellar ischemic injury but no other acute process. U/S interpreted by me (1pt. min.). @ -None done What testing was considered but not performed or refused? (CT, X-rays, U/S, labs)? Why? @ -None What meds were considered but not given or refused? Why? @ -None Did you discuss the management of the patient with other professionals (professionals i.e. , PA, VEN[employer]IAN BLIND CLE[employer]ER [employer] REPAIRER, lab, RT, psych nurse, social service assistant, axminster weaver, teacher, property utilization officer, mental health case manager)? Give summary @ -Discussed the case with the patient's PCP, Dr. Sam who requested admission as well as MRI. We discussed his workup. In the emergency department and did accept the admission to his service. Was smoking cessation discussed for >3mins.? @ -No Was critical care preformed (if so, how long)? @ -No Were there social determinants of health that impacted care today? How? (Homelessness, low income, unemployed, alcoholism, drug addiction, transporta tion, low edu. Level, literacy, decrease access to med. care, penitentiary, rehab)? @ -No Was there de-escalation of care discussed even if they declined (Discuss DNR or withdrawal of care, Hospice)? DNR status @ -No What co-morbidities impacted this encounter? (DM, HTN, Smoking, COPD, CAD, Cancer, CVA, ARF, Chemo, Hep., AIDS, mental health diagnosis, sleep apnea, morbid obesity)? @ -None Was patient admitted / discharged? Hospital course, mention meds given and route, prescriptions, significant lab abnormalities, going to OR and other pertinent info. @ -Based on the patient's presentation and physical exam, presents with some intermittent confusion, as well as some generalized weakness since yesterday. Waxes and wanes. Has been over 24 hours of symptoms. GCS is 15. NIH is 0 at this time. Is alert and oriented. No obvious deficits. Patient does have some bilateral hand strength deficits on switchboard wirer strength but remainder of his upper extremities appears to have normal strength. We will obtain altered mental status workup. He was in agreement this plan. Vital signs within acceptable limits. He will be given a 1 L fluid bolus. He is already received 324 mg of aspirin prior to arrival. EKG showed no signs of ischemia. Imaging is unremarkable. Labs are unremarkable as well, including an undetectable troponin, normal urinalysis. On reevaluation, exam is unchanged. I did discuss the case with Dr. Sam the patient's PCP who recommended admission under his service. I did discuss this with the patient and he was in agreement this plan. Dr. Sam requested an order for an MRI brain which was placed. Neurology was also consulted at his request. Patient was admitted in stable condition. Undiagnosed new problem with uncertain prognosis? @ -No Drug Therapy requiring intensive monitoring for toxicity (Heparin, Nitro, Insulin, Cardizem)? @ -No Were any procedures done? @ -No Diagnosis/symptom? @ -Confusion, weakness Acute, or Chronic, or Acute on Chronic? @ -Acute Uncomplicated (without systemic symptoms) or Complicated (systemic symptoms)? @ -Complicated Side effects of treatment? @ -No Exacerbation, Progression, or Severe Exacerbation? @ -No Poses a threat to life or bodily function? How? (Chest pain, [place], AL, pneumonia, PE, COPD, DKA, ARF, appy, cholecystitis, CVA, Diverticulitis, Homicidal, Suicidal, threat to staff... and all critical care pts) @ -Potentially yes - Lab Data Result diagrams: 05/15/23 12:24 05/15/23 12:24 Lab Results 05/15/23 05/15/23 05/15/23 Range/Units 12:24 12:24 12:24 WBC 5.3 (3.8-10.6) k/uL RBC 5.01 (4.30-5.90) m/uL Hgb 15.5 (13.0-17.5) gm/dL Hct 46.2 (39.0-53.0) % MCV 92.1 (80.0-100.0) fL MCH 31.0 (25.0-35.0) pg MCHC 33.6 (31.0-37.0) g/dL RDW 13.9 (11.5-15.5) % Plt Count 250 (150-450) k/uL MPV 7.7 Neutrophils % 73 % Lymphocytes % 14 % Monocytes % 9 % Eosinophils % 1 % Basophils % 0 % Neutrophils # 3.9 (1.3-7.7) k/uL Lymphocytes # 0.7 L (1.0-4.8) k/uL Monocytes # 0.5 (0-1.0) k/uL Eosinophils # 0.1 (0-0.7) k/uL Basophils # 0.0 (0-0.2) k/uL PT 10.2 (9.0-12.0) sec INR 1.0 (<1.2) APTT 22.0 (22.0-30.0) sec Sodium (137-145) mmol/L Potassium (3.5-5.1) mmol/L Chloride (98-107) mmol/L Carbon Dioxide (22-30) mmol/L Anion Gap mmol/L BUN (9-20) mg/dL Creatinine (0.66-1.25) mg/dL Est GFR (CKD-EPI)AfAm (>60 ml/min/1.73 sqM) Est GFR (CKD-EPI)NonAf (>60 ml/min/1.73 sqM) Glucose (74-99) mg/dL POC Glucose (mg/dL) (70-110) mg/dL POC Glu [place] Hand ID Calcium (8.4-10.2) mg/dL Total Bilirubin (0.2-1.3) mg/dL AST (17-59) U/L ALT (4-49) U/L Alkaline Phosphatase (38-126) U/L Ammonia (<30) umol/L Troponin I (0.000-0.034) ng/mL Total Protein (6.3-8.2) g/dL Albumin (3.5-5.0) g/dL Urine Color Urine Appearance (Clear) Urine pH (5.0-8.0) Ur Specific [place] (1.001-1.035) Urine Protein (Negative) Urine Glucose (UA) (Negative) Urine Ketones (Negative) Urine Blood (Negative) Urine Nitrite (Negative) Urine Bilirubin (Negative) Urine Urobilinogen (<2.0) mg/dL Ur Leukocyte Esterase (Negative) Urine Opiates Screen Not Detected (NotDetected) Ur Oxycodone Screen Not Detected (NotDetected) Urine Methadone Screen Not Detected (NotDetected) Ur Propoxyphene Screen Not Detected (NotDetected) Ur Barbiturates Screen Not Detected (NotDetected) U Tricyclic Antidepress Not Detected (NotDetected) Ur Phencyclidine Scrn Not Detected (NotDetected) Ur Amphetamines Screen Not Detected (NotDetected) U Methamphetamines Scrn Not Detected (NotDetected) U Benzodiazepines Scrn Not Detected (NotDetected) Urine Cocaine Screen Not Detected (NotDetected) U Marijuana (THC) Screen Detected H (NotDetected) Serum Alcohol mg/dL 05/15/23 05/15/23 05/15/23 Range/Units 12:24 12:24 12:24 WBC (3.8-10.6) k/uL RBC (4.30-5.90) m/uL Hgb (13.0-17.5) gm/dL Hct (39.0-53.0) % MCV (80.0-100.0) fL MCH (25.0-35.0) pg MCHC (31.0-37.0) g/dL RDW (11.5-15.5) % Plt Count (150-450) k/uL MPV Neutrophils % % Lymphocytes % % Monocytes % % Eosinophils % % Basophils % % Neutrophils # (1.3-7.7) k/uL Lymphocytes # (1.0-4.8) k/uL Monocytes # (0-1.0) k/uL Eosinophils # (0-0.7) k/uL Basophils # (0-0.2) k/uL PT (9.0-12.0) sec INR (<1.2) APTT (22.0-30.0) sec Sodium 136 L (137-145) mmol/L Potassium 4.2 (3.5-5.1) mmol/L Chloride 104 (98-107) mmol/L Carbon Dioxide 29 (22-30) mmol/L Anion Gap 3 mmol/L BUN 11 (9-20) mg/dL Creatinine 0.70 (0.66-1.25) mg/dL Est GFR (CKD-EPI)AfAm >90 (>60 ml/min/1.73 sqM) Est GFR (CKD-EPI)NonAf >90 (>60 ml/min/1.73 sqM) Glucose 93 (74-99) mg/dL POC Glucose (mg/dL) (70-110) mg/dL POC Glu [place] Hand ID Calcium 8.4 (8.4-10.2) mg/dL Total Bilirubin 0.7 (0.2-1.3) mg/dL AST 22 (17-59) U/L ALT 23 (4-49) U/L Alkaline Phosphatase 87 (38-126) U/L Ammonia <9 (<30) umol/L Troponin I <0.012 (0.000-0.034) ng/mL Total Protein 5.7 L (6.3-8.2) g/dL Albumin 3.5 (3.5-5.0) g/dL Urine Color Urine Appearance (Clear) Urine pH (5.0-8.0) Ur Specific [place] (1.001-1.035) Urine Protein (Negative) Urine Glucose (UA) (Negative) Urine Ketones (Negative) Urine Blood (Negative) Urine Nitrite (Negative) Urine Bilirubin (Negative) Urine Urobilinogen (<2.0) mg/dL Ur Leukocyte Esterase (Negative) Urine Opiates Screen (NotDetected) Ur Oxycodone Screen (NotDetected) Urine Methadone Screen (NotDetected) Ur Propoxyphene Screen (NotDetected) Ur Barbiturates Screen (NotDetected) U Tricyclic Antidepress (NotDetected) Ur Phencyclidine Scrn (NotDetected) Ur Amphetamines Screen (NotDetected) U Methamphetamines Scrn (NotDetected) U Benzodiazepines Scrn (NotDetected) Urine Cocaine Screen (NotDetected) U Marijuana (THC) Screen (NotDetected) Serum Alcohol <10 mg/dL 05/15/23 05/15/23 Range/Units 12:24 14:39 WBC (3.8-10.6) k/uL RBC (4.30-5.90) m/uL Hgb (13.0-17.5) gm/dL Hct (39.0-53.0) % MCV (80.0-100.0) fL MCH (25.0-35.0) pg MCHC (31.0-37.0) g/dL RDW (11.5-15.5) % Plt Count (150-450) k/uL MPV Neutrophils % % Lymphocytes % % Monocytes % % Eosinophils % % Basophils % % Neutrophils # (1.3-7.7) k/uL Lymphocytes # (1.0-4.8) k/uL Monocytes # (0-1.0) k/uL Eosinophils # (0-0.7) k/uL Basophils # (0-0.2) k/uL PT (9.0-12.0) sec INR (<1.2) APTT (22.0-30.0) sec Sodium (137-145) mmol/L Potassium (3.5-5.1) mmol/L Chloride (98-107) mmol/L Carbon Dioxide (22-30) mmol/L Anion Gap mmol/L BUN (9-20) mg/dL Creatinine (0.66-1.25) mg/dL Est GFR (CKD-EPI)AfAm (>60 ml/min/1.73 sqM) Est GFR (CKD-EPI)NonAf (>60 ml/min/1.73 sqM) Glucose (74-99) mg/dL POC Glucose (mg/dL) 81 (70-110) mg/dL POC Glu [place] Hand ID Julianne Silva Calcium (8.4-10.2) mg/dL Total Bilirubin (0.2-1.3) mg/dL AST (17-59) U/L ALT (4-49) U/L Alkaline Phosphatase (38-126) U/L Ammonia (<30) umol/L Troponin I (0.000-0.034) ng/mL Total Protein (6.3-8.2) g/dL Albumin (3.5-5.0) g/dL Urine Color Yellow Urine Appearance Clear (Clear) Urine pH 5.5 (5.0-8.0) Ur Specific [place] 1.029 (1.001-1.035) Urine Protein Trace H (Negative) Urine Glucose (UA) 4+ H (Negative) Urine Ketones Negative (Negative) Urine Blood Negative (Negative) Urine Nitrite Negative (Negative) Urine Bilirubin Negative (Negative) Urine Urobilinogen <2.0 (<2.0) mg/dL Ur Leukocyte Esterase Negative (Negative) Urine Opiates Screen (NotDetected) Ur Oxycodone Screen (NotDetected) Urine Methadone Screen (NotDetected) Ur Propoxyphene Screen (NotDetected) Ur Barbiturates Screen (NotDetected) U Tricyclic Antidepress (NotDetected) Ur Phencyclidine Scrn (NotDetected) Ur Amphetamines Screen (NotDetected) U Methamphetamines Scrn (NotDetected) U Benzodiazepines Scrn (NotDetected) Urine Cocaine Screen (NotDetected) U Marijuana (THC) Screen (NotDetected) Serum Alcohol mg/dL - EKG Data -: EKG Interpreted by Me EKG Comments: 12-lead Electrocardiogram Interpretation Note EKG was reviewed and interpreted by myself. 12-lead ECG performed at 1206 is interpreted by me as revealing normal sinus rhythm at a rate of 75 beats per minute. [place] is normal. [place] interval is 165 ms, QRS duration is 100 ms, QTc is 388 ms.. There were no ST or T wave abnormalities to suggest myocardial ischemia or injury. R wave progression across the precordium was satisfactory. By my interpretation this EKG is non-diagnostic for acute ischemia. Disposition Clinical Impression: Weakness, Intermittent confusion Disposition: ADMITTED IP TO THIS HOSP Condition: Stable Referrals: Jay Sam MD [Primary Care Provider] - 1-2 days Time of Disposition: 14:35
[2023-05-15 17:07] LABS: Glucose,Whole Blood 81 mg/dL (70-110)
[2023-05-15] MEDS: HEPARIN SODIUM,PORCINE/PF 5,000 UNIT/0.5 ML SYRINGE SQ SCH ×2 (18:47→22:33)
[2023-05-15] MEDS ORDERED: HYDROcodone/APAP 7.5-325MG 1 EACH TAB PO PRN (20:15)
[2023-05-15] MEDS ORDERED: BACLOFEN 10 MG TAB PO PRN (20:15)
[2023-05-15] MEDS ORDERED: INSULIN DETEMIR (LEVEMIR) 100 UNIT/ML SYR SQ SCH (21:00)
[2023-05-15] MEDS: ATORVASTATIN 40 MG TAB PO SCH ×2 (21:20→21:21)
[2023-05-15] MEDS: CLOPIDOGREL 75 MG TAB PO SCH (21:20)
[2023-05-15] MEDS: metFORMIN 500 MG TAB PO SCH (22:34)
[2023-05-15] MEDS: INSULIN ASPART (NovoLOG) 100 UNIT/ML VIAL SQ SCH (22:34)
[2023-05-15 22:35] LABS: Glucose,Whole Blood 85 mg/dL (70-110)
[2023-05-16 05:57] LABS: Glucose,Whole Blood 75 mg/dL (70-110)
[2023-05-16] MEDS: INSULIN ASPART (NovoLOG) 100 UNIT/ML VIAL SQ SCH ×2 (06:00→12:22)
[2023-05-16 06:25] LABS: Basophils % (A) 0 %; Eosinophils # (A) 0.2 k/uL (0-0.7); Eosinophils % (A) 4 %; HCT 46.1 % (39.0-53.0); HGB 15.4 gm/dL (13.0-17.5); Lymphocytes # (A) 0.9 k/uL (1.0-4.8); Lymphocytes % (A) 19 %; MCH 30.9 pg (25.0-35.0); MCHC 33.4 g/dL (31.0-37.0); MCV 92.6 fL (80.0-100.0); Mean Platelet Volume 7.6; Monocytes # (A) 0.5 k/uL (0-1.0); Monocytes % (A) 10 %; Neutrophils # (A) 3.2 k/uL (1.3-7.7); Neutrophils % (A) 65 %; Platelet Count 235 k/uL (150-450); RBC 4.98 m/uL (4.30-5.90); RDW 14.2 % (11.5-15.5); WBC 4.9 k/uL (3.8-10.6)
[2023-05-16 06:33] LABS: African American GFR (CKD) >90 (>60 ml/min/1.73 sqM); Anion Gap 7 mmol/L; Blood Urea Nitrogen 9 mg/dL (9-20); Calcium 8.6 mg/dL (8.4-10.2); Carbon Dioxide 25 mmol/L (22-30); Chloride 107 mmol/L (98-107); Glucose 81 mg/dL (74-99); Non-African American GFR(CKD) >90 (>60 ml/min/1.73 sqM); Potassium 4.1 mmol/L (3.5-5.1); Sodium 139 mmol/L (137-145)
--- NOTE | 2023-05-16 07:53 | MR ---
EXAMINATION TYPE: MR brain wo con DATE OF EXAM: 05/16/2023 COMPARISON: CT brain 05/15/2023 HISTORY: Weakness, episodes of head pain. CONTRAST: Performed utilizing 0 mL intravenous Gadavist gadolinium contrast. TECHNIQUE: Multiplanar, multiecho imaging on a 3.0 [place] magnet is performed through the brain. Stud y is performed within 24 hours of arrival to the hospital. The craniovertebral junction is normal. The pituitary is normal. Diffusion-weighted imaging is performed. No abnormal hyperintensity is present to suggest an acute i ntracranial infarct or acute ischemic change. There is an old lacunar infarct within the inferior left cerebellum. There are scattered periventricular punctate white matter changes which are nonspecific but can be re lated to microvascular ischemic change. Ventricles and sulci are mildly prominent for the patient age. IMPRESSIONS: 1. 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 2. Mild periventricular deep white matter changes likely on the basis of chronic white matter ischemi c change. 3. Mild age-related atrophy.
[2023-05-16] MEDS ORDERED: LINAGLIPTIN 5 MG TABLET PO SCH (09:00)
[2023-05-16] MEDS ORDERED: TAMSULOSIN 0.4 MG CAP.ER.24H PO SCH (09:00)
[2023-05-16] MEDS ORDERED: MULTIVITAMINS, THERA 1 EACH TAB PO SCH (09:00)
[2023-05-16] MEDS ORDERED: ASPIRIN 81 MG PO SCH (09:00)
[2023-05-16] MEDS ORDERED: DAPAGLIFLOZIN PROPANEDIOL 10 MG TABLET PO SCH (09:00)
[2023-05-16 09:26] VITALS: RESP 16
[2023-05-16] MEDS: HEPARIN SODIUM,PORCINE/PF 5,000 UNIT/0.5 ML SYRINGE SQ SCH (10:23)
[2023-05-16] MEDS: CLOPIDOGREL 75 MG TAB PO SCH (10:24)
--- NOTE | 2023-05-16 10:30 | US ---
EXAMINATION TYPE: US carotid duplex BILAT DATE OF EXAM: 05/15/2023 COMPARISON: 12/28/21 CLINICAL INDICATION: Male, 73 years old with history of TIA; neurological issues TECHNIQUE: Carotid duplex ultrasound examination. Indirect Doppler criteria was utilized. FINDINGS: EXAM MEASUREMENTS: RIGHT: Peak Systolic Velocity (PSV) cm/sec ----- Right CCA: 83.4 ----- Right ICA: 63.6 ----- Right ECA: 109.5 ICA/CCA ratio: 0.8 RIGHT: End Diastole cm/sec ----- Right CCA: 12.0 ----- Right ICA: 14.2 ----- Right ECA: 12.4 LEFT: Peak Systolic Velocity (PSV) cm/sec ----- Left CCA: 60.4 ----- Left ICA: 81.2 ----- Left ECA: 101.6 ICA/CCA ratio: 1.3 LEFT: End Diastole cm/sec ----- Left CCA: 10.9 ----- Left ICA: 21.9 ----- Left ECA: 9.5 VERTEBRALS (direction of flow): Right Vertebral: Antegrade Left Vertebral: Antegrade Rhythm: Normal INCIDENT COMMANDER NOTES: No elevated velocities, no plaque seen IMPRESSION: No suspicious flow-limiting stenosis based on velocities. Criteria for Assigning % of Stenosis / Diameter reduction (Estimation based on the indirect measurements of the internal carotid artery velocities (ICA PSV). 1. Normal (no stenosis)=ICA PSV < 125 cm/s: ratio < 2.0: ICA EDV<40 cm/s. 2. Less than 50% stenosis=ICA PSV < 125 cm/s: ratio < 2.0: ICA EDV<40 cm/s. 3. 50 to 69% stenosis=ICA PSV of 125 to 230 cm/s: ration 2.0 ? 4.0: ICA EDV 40-100 cm/s. 4. Greater than 70% stenosis to near occlusion= ICA PSV > 230 cm/s: ratio > 4.0: ICA EDV > 100 cm/s. 5. Near occlusion= ICA PSV velocities may be low or undetectable: variable ratio and ICA EDV. 6. Total occlusion=unable to detect flow.
--- NOTE | 2023-05-16 10:58 | CA ---
Transthoracic Echo Report Name: Mario Lowery Age: 73 Gender: M : 1950 Exam Date: 05/16/2023 08:36 Exam Location: [facility] Ht (in): 70 Wt (lb): 191 Ordering Physician: Jay Sam MD Attending/Referring Phys: Clock Assembler Yoel Bautista Procedure CPT: Indications: tia Cardiac Hx: Technical Quality: Fair Contrast 1: Total Dose (mL): Contrast 2: Total Dose (mL): MEASUREMENTS (Male / Female) Normal Values 2D ECHO LV Diastolic Diameter PLAX 4.4 cm 4.2 - 5.9 / 3.9 - 5.3 cm LV Systolic Diameter PLAX 3.3 cm IVS Diastolic Thickness 1.5 cm 0.6 - 1.0 / 0.6 - 0.9 cm LVPW Diastolic Thickness 1.3 cm 0.6 - 1.0 / 0.6 - 0.9 cm LV Relative Wall Thickness 0.6 RV Internal Dim ED PLAX 3.4 cm LVOT Diameter 2.5 cm Aortic Root Diameter 3.1 cm LA Systolic Diameter LX 3.1 cm 3.0 - 4.0 / 2.7 - 3.8 cm LV Diastolic Volume MOD BP 66.4 cm??? 67 - 155 / 56 - 104 cm??? LV Systolic Volume MOD BP 18.5 cm??? 22 - 58 / 19 - 49 cm??? LV Ejection Fraction MOD BP 72.1 % >= 55 % LV Diastolic Volume MOD 4C 56.5 cm??? LV Systolic Volume MOD 4C 13.9 cm??? LV Ejection Fraction MOD 4C 75.3 % LV Diastolic Length 4C 7.4 cm LV Systolic Length 4C 6.1 cm LV Diastolic Volume MOD 2C 75.1 cm??? LV Systolic Volume MOD 2C 24.8 cm??? LV Ejection Fraction MOD 2C 66.9 % LV Diastolic Length 2C 7.0 cm LV Systolic Length 2C 6.3 cm LA Volume 33.0 cm??? 18 - 58 / 22 - 52 cm??? DOPPLER AV Peak Velocity 114.9 cm/s AV Peak Gradient 5.3 mmHg LVOT Peak Velocity 100.3 cm/s LVOT Peak Gradient 4.0 mmHg AV Area Cont Eq pk 4.2 cm??? MV Peak Velocity 96.1 cm/s MV Peak Gradient 3.7 mmHg MV Mean Velocity 55.3 cm/s MV Mean Gradient 1.4 mmHg MV Velocity Time Integral 29.0 cm MR Peak Velocity 557.0 cm/s MR Peak Gradient 124.1 mmHg Mitral E Point Velocity 91.0 cm/s Mitral A Point Velocity 69.4 cm/s Mitral E to A Ratio 1.3 MV Deceleration Time 203.4 ms TR Peak Velocity 225.8 cm/s TR Peak Gradient 20.4 mmHg Right Ventricular Systolic Press 25.4 mmHg FINDINGS Left Ventricle Left ventricular ejection fraction is estimated at 55-60 %.left ventricular cavity size normal. Normal left ventricular wall motion. Mildly increased left ventricular wall thickness. Right Ventricle .normal right ventricular size and function. Right Atrium Normal right atrial size. Left Atrium Normal left atrial size. Mitral Valve Structurally normal mitral valve. Mild MR. Aortic Valve Trileaflet aortic valve. Mild AV Sclerosis/calcification. No aortic valve stenosis or regurgitation. Tricuspid Valve Tricuspid valve not well visualized. Mild TR. Pulmonic Valve Pulmonic valve not well visualized. No pulmonic regurgitation. Pericardium Normal pericardium. Aorta Normal size aortic root and proximal ascending aorta. CONCLUSIONS 1. Normal left ventricle size and systolic function 2. Mild mitral and tricuspid regurgitation with normal right ventricular systolic pressure Previewed by: Dr. Dre Thomas MD (Electronically Signed) Final Date: 16 May 2023 10:57
[2023-05-16] MEDS ORDERED: BUTALB/APAP/CAFF 50-325-40MG TAB PO PRN (12:01)
[2023-05-16 12:09] LABS: Glucose,Whole Blood 101 mg/dL (70-110)
[2023-05-16] MEDS: metFORMIN 500 MG TAB PO SCH (12:22)
--- NOTE | 2023-05-16 13:09 | P.CNNES ---
History of Present Illness Consult date: 05/16/23 Requesting physician: Cedric Haas Reason for Consult: Weakness, intermittent confusion History of Present Illness: Patient is a 73-year-old male with history of hypertension, diabetes, hyperlipidemia, came to the hospital yesterday at 11:16 AM for multiple neurological symptoms. Patient states that in the last 24 hours, he had about 5 episodes of similar spells, in which he suddenly becomes beat red, starts fuzzy, shaking, almost like "someone electrocuted him" and episodes usually last about 10 seconds. Only one time it lasted for 30 seconds. He does not pass out, eyes do not rolled up, no tongue bite or loss of control of urine. Patient later stated that it has happened in the last couple weeks as well. Patient has been repeating, asking same question on and on. Patient denies any slurred speech, facial droop, any focal weakness, numbness or tingling or paralysis. Patient then mentions about his headaches. Apparently 5 years ago he was seen by Dr. Kitchen for recurrent headaches. The headaches involved the right occipital region. Once happens, it would last for a whole day. There was no nausea or vomiting or light sensitivity although he would be very sensitive to the noise. He rated the headaches 7-8/10, felt like a pulled muscle ache. The headaches were occurring for quite many years until his primary physician referred him to Dr. Kitchen. He tried different medications for a year, did not work. He used to have headaches about 3-4 times a week. He then injected something in the right occipital region, which significantly helped with the headaches although did not go away. He started having headaches very sporadically, like 8-10 times in 6 months. He will take Stella for it. Patient states that last night he got a different type of headache, pointing to the right temporal region, rated it 8-9/10, very intense, unbearable. He is holding his right scientology. He denies any nausea vomiting, or light sensitivity although it is noise sensitive. He feels as if her head will blow up. It is a throbbing headache. He says that he has had this type of headache a couple times in the last few weeks. Again, this can of headache also lasted for about 24 hours. Patient states that in the past she has had episodes, in which he will be watching a ballgame, and he gets a headache and he has some transient difficulty with vision in the right lower side of his vision. It would last only for "momentarily". There is no loss of vision with it. He just would not be able to focus for short while. Vital signs on arrival blood pressure 136/83, pulse rate 71, temperature 98.2. Blood test shows normal CBC, PT/PTT, sodium 136 potassium 4.2, normal renal functions, hepatic panel, troponin, UA, urine drug screen positive for marijuana. Blood alcohol level negative. CT head revealed no acute intracranial process. Nonspecific white matter changes, likely secondary to ch ronic small vessel ischemic disease. EKG was sinus rhythm with sinus arrhythmia. Patient has history of diabetes since 1999, hypertension and hyperlipidemia. He drinks 2 cups of coffee every morning. He denies any tobacco use, drinks alcohol very little. Home medication includes lisinopril, Flomax, Janumet, insulin, aspirin 81 mg, baclofen 10 mg every 12 hour when necessary, Stella, Lipitor 40 mg, Mounjaro, Farxiga. Patient states that his mother used to suffer from severe migraines, that would last for days and days. Patient's also suffers from migraines, and patient tried her Maxalt, which did not work. Review of Systems Constitutional: Denies chills, Denies fever Eyes: right blurred vision (Occasionally), denies diplopia, denies loss of vision Ears: deny: decreased hearing, ear discharge Ears, nose, mouth and throat: Reports headache, Denies sore throat Cardiovascular: Denies chest pain, Denies shortness of breath Respiratory: Denies cough, Denies excessive sputum Gastrointestinal: Denies abdominal pain, Denies diarrhea, Denies nausea, Denies vomiting Musculoskeletal: Denies low back pain, Denies myalgias, Denies neck pain Integumentary: Denies pruritus, Denies rash Neurological: Reports as per HPI Psychiatric: Denies anxiety, Denies depression Endocrine: Denies fatigue, Denies weight change Hematologic/Lymphatic: Denies easy bleeding, Denies easy bruising Past Medical History Past Medical History: Diabetes Mellitus, Hyperlipidemia, Hypertension, Osteoarthritis (OA), Prostate Disorder Additional Past Medical History / Comment(s): has had "4 events with stroke like symptoms," couple of years ago. has one kidney r/t benign tumor, arthritis lower back. History of Any Multi-Drug Resistant Organisms: None Reported Past Surgical History: Hernia Repair, Joint Replacement, Orthopedic Surgery Additional Past Surgical History / Comment(s): bilateral knee replacement, bilateral rotator cuff repair. kristine carpal tunnel X2, tumor removed from rt kidney ( kidney later from lack of blood flow), PAIN CLINIC PROCEDURES Past Anesthesia/Blood Transfusion Reactions: No Reported Reaction Additional Past Anesthesia/Blood Transfusion Reaction / Comment(s): no blood transfusions Past Psychological History: No Psychological Hx Reported Smoking Status: Former smoker Past Alcohol Use History: Rare Additional Past Alcohol Use History / Comment(s): quit smoking in the , smoked 1ppd smoked 20 yrs. Past Drug Use History: None Reported - Past Family History Mother Family Medical History: Cancer Additional Family Medical History / Comment(s): Colorectal Father Family Medical History: Cancer Additional Family Medical History / Comment(s): Colorectal cancer. throat cancer Medications and Allergies Home Medications Medication Instructions Recorded Confirmed Type Multivitamins, Thera [Multivitamin 1 each PO DAILY 04/07/14 05/15/23 History (formulary)] Aspirin [Adult Low Dose Aspirin EC] 81 mg PO DAILY 12/22/20 05/15/23 History Tamsulosin [Flomax] 0.4 mg PO DAILY 12/22/20 05/15/23 History lisinopriL [Zestril] 2.5 mg PO HS 12/22/20 05/15/23 History Dapagliflozin Propanediol [Farxiga] 10 mg PO DAILY 11/29/22 05/15/23 History Baclofen 10 mg PO Q12HR PRN 12/16/22 05/15/23 History Atorvastatin [Lipitor] 40 mg PO HS 05/15/23 05/15/23 History HYDROcodone/APAP 7.5-325MG [Stella 1 tab PO BID PRN 05/15/23 05/15/23 History 7.5-325] Tirzepatide [Mounjaro] 5 mg SQ WE 05/15/23 05/15/23 History Butalb/APAP/Caff 50-325-40Mg 1 each PO Q4HR PRN #30 tab 05/16/23 Rx [Fioricet 50-325-40] Clopidogrel [Plavix] 75 mg PO DAILY #30 tab 05/16/23 Rx Topiramate [Topamax] 25 mg PO BID #60 tab 05/16/23 Rx Allergies Allergy/AdvReac Type Severity Reaction Status Date / Time hydromorphone HCl Allergy Nausea & Verified 05/15/23 12:17 [From Dilaudid] Vomiting Physical Examination - Vital Signs Vital Signs: Vital Signs Temp Pulse Resp BP BP Pulse Ox 05/16/23 09:15 98.1 F 73 16 143/72 96 05/16/23 02:18 97.3 F L 62 18 109/54 99 05/15/23 21:49 98.1 F 59 L 17 135/80 97 Intake and Output 05/15/23 05/16/23 05/16/23 22:59 06:59 14:59 Intake Total 118 Balance 118 Intake: Oral 118 Other: # Voids 1 Weight 86.636 kg Patient is an elderly male, who appears to be somewhat in distress because of the headache, holding his right scientology and appears somewhat flushed. He appears restless because of the headache. Patient is alert awake oriented to time place and person. Speech and language functions are normal. Patient can name and repeat very well. No aphasia or dysarthria. Attention, concentration and fund of knowledge is adequate. On cranial nerve examination, pupils are equal, round and reacting to light, visual luo are full on confrontation, with no neglect on double simultaneous stimulation. Extraocular muscles are intact with no nystagmus. Face is symmetric, tongue protrudes to the midline. Palatal elevation and sensation normal, hearing and shoulder shrug normal, facial sensation normal. On muscle strength testing, there is no pronator drift and the strength is normal in arms and legs distally and proximally. Deep tendon reflexes are symmetric, hypoactive and plantars are withdrawal bilaterally. Sensory to touch is equal with no neglect on double simultaneous stimulation. Cerebellar function showed no ataxia for [id number] testing. No dysdiadochokinesia. No ataxia for [id number] testing on either side. Tone and bulk of muscles normal. Gait deferred.. On general examination, there is no carotid bruit or murmur, S1-S2 audible. Chest is clear on consultation. Abdomen is soft nontender. No organomegaly, bowel sounds present. Peripheral pulses are present. No edema. Results - Laboratory Findings CBC and BMP: 05/16/23 06:00 05/16/23 06:00 Abnormal Lab Findings: Abnormal Labs 05/15/23 05/15/23 05/15/23 12:24 12:24 12:24 Lymphocytes # 0.7 L Sodium 136 L Total Protein 5.7 L Urine Protein Urine Glucose (UA) U Marijuana (THC) Screen Detected H 05/15/23 05/16/23 12:24 06:00 Lymphocytes # 0.9 L Sodium Total Protein Urine Protein Trace H Urine Glucose (UA) 4+ H U Marijuana (THC) Screen Assessment and Plan Assessment: * Recurrent episodes (5) of feeling beat red, fuzzy, shaky lasting for 10-30 seconds, unclear etiology. Do not appear like seizures. Rule out TIA. * Long-standing history of periodic intense unilateral throbbing headaches with phonophobia, highly suggestive of migraine headaches. Probable migraine variant/atypical migraines. Patient has developed right temporal headache with significant phonophobia since last night, also suggestive of probable migraine headache. * Strong family history of migraines in his mother * Hypertension * Diabetes * Hyperlipidemia Plan: * All workup performed so far has been negative as mentioned below. It appears patient has migraine headaches. We will try Fioricet at this time to abort the headache. For migraine prophylaxis, we will try Topamax 25 mg twice a day. Possible side effects of paresthesias, potential ocular, renal side effects were discussed. * Patient needs to follow-up with neurologist for management of probable migraines. * We will check ESR, and CRP to rule out temporal arteritis. 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 Mild periventricular deep white matter changes, likely on the basis of chronic white matter ischemic change. Mild age-related atrophy. * Carotid Doppler revealed no suspicious flow limiting stenosis based on velocities. Antegrade flow in both vertebral arteries. * 2-D echo revealed normal left ventricular size and systolic function. Mild MR, TR. Left atrial size is normal. * EEG was performed, which was normal awake and drowsy EEG. No focal, lateralized or epileptiform activity was seen. * Ammonia < 9, patient's last hemoglobin A1c 7.7 and lipid panel with cholesterol 160, LDL 77, HDL 59 and triglycerides 112 on 12/11/2022. Continue Lipitor 40 mg. * Agree with starting Plavix, as uncertain if these represent ??TIA. * Neurologically clear, if the headache resolves with above treatment. * Thank you for the consult. Addendum: ESR 2 CRP < 0.5 Time with Patient: Greater than 30
[2023-05-16] MEDS ORDERED: TOPIRAMATE 25 MG TAB PO SCH (13:15)
--- NOTE | 2023-05-16 14:21 | P.HPIM ---
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 Patient presented to the office yesterday with concern that he was having a TIA on 614. Patient felt foggy with no energy headache most of the night and seemed confused. Patient was sent into the emergency center for further evaluation. REVIEW OF SYSTEMS Constitutional: No fever, no chills, no night sweats. No weight change. No weakness, reports fatigue no lethargy. No daytime sleepiness. EENT: No headache. No blurred vision or double vision, no loss of vision. No loss of Hearing, no ringing in the ears, no dizziness. No nasal drainage or congestion. No epistaxis. No sore throat. Lungs: No shortness of breath, cough, no sputum production. No wheezing. Cardiovascular: No chest pain, no lower extremity edema. No palpitations. No paroxysmal nocturnal dyspnea. No orthopnea. No lightheadedness or dizziness. No syncopal episodes. Abdominal: No abdominal pain. No nausea, vomiting. No diarrhea. No constipation. No bloody or tarry stools. No loss of appetite. Genitourinary: No dysuria, increased frequency, urgency. No urinary retention. Musculoskeletal: No myalgias. No muscle weakness, no gait dysfunction, no frequent falls. No back pain. No neck pain. Integumentary: No wounds, no lesions. No rash or pruritus. No unusual bruising. No change in hair or nails. Neurologic: No aphasia. No facial droop. Mild change in mentation. No head injury. No headache. No paralysis. No paresthesia. Psychiatric: No depression. No anxiety. No mood swings. Endocrine: No abnormal blood sugars. No weight change. No excessive sweating or thirst. No cold intolerance. MEDICAL HISTORY Diabetes mellitus type 2 Hypertension Hyperlipidemia Benign prostatic hypertrophy Spondylosis without myelopathy or radiculopathy cervical spine Occipital neuralgia Benign neoplasm of the left adrenal gland SURGICAL HISTORY Rotator cuff tear repair Abdominal hernia repair Colonoscopy 2007, 2010 and 05/2021 Rectal fissure Adrenalectomy 05/2014 SOCIAL HISTORY Patient has history of tobacco use and quit 10 years ago. He drinks 1-2 cups of caffeine per day. No marijuana use or illicit drug use. He drinks alcohol occasionally. FAMILY HISTORY Mother at age 91 from coronary artery disease and Alzheimer's dementia diagnosed with a heart attack. Mother at age 83 from colon cancer. Patient has 3 sisters that are and 2 daughters with no major medical problems. PHYSICAL EXAMINATION Gen: This is a 23-year-old male. He is resting in bed and appears to be comfortable and in no acute distress HEENT: Head is atraumatic, normocephalic. Pupils equal, round. Sclerae is anicteric. NECK: Supple. No JVD. No lymphadenopathy. No thyromegaly. LUNGS: Clear to auscultation. No wheezes or rhonchi. No intercostal re tractions. HEART: Regular rate and rhythm. No murmur. ABDOMEN: Soft. Bowel sounds are present. No masses. No tenderness. EXTREMITIES: No pedal edema. No calf tenderness. NEUROLOGICAL: Patient is awake, alert and oriented x3. Cranial nerves 2 through 12 are grossly intact. ASSESSMENT AND PLAN 1. Possible TIA. Patient started on Plavix and continue aspirin 81 mg daily, consult with neurology appreciated. 2. Migraine headache. Patient has been started on Topamax and Fioricet by neurology. Prescriptions have been sent to his pharmacy. 3. Diabetes mellitus type 2. Patient has not been receiving diabetic medications while in the hospital and blood sugars have been running in the 70s to 100. Janumet and Lantus will be discontinued for now until he follows up in the office. 4. Hypertension. Continue lisinopril 2.5 mg daily, low-salt diet. 5. Hyperlipidemia. Continue atorvastatin 40 mg daily. 6. Benign prostatic hypertrophy. 7. Spondylosis of the lumbar spine. Patient is observation status. DISCHARGE PLAN Return home. Greater than 35 minutes was utilized and coordinating patient's discharge. Impression and plan of care have been directed as dictated by the signing physician. Shanon Collazo nurse practitioner acting as scribe for signing physician. Past Medical History Past Medical History: Diabetes Mellitus, Hyperlipidemia, Hypertension, Osteoarthritis (OA), Prostate Disorder Additional Past Medical History / Comment(s): has had "4 events with stroke like symptoms," couple of years ago. has one kidney r/t benign tumor, arthritis lower back. History of Any Multi-Drug Resistant Organisms: None Reported Past Surgical History: Hernia Repair, Joint Replacement, Orthopedic Surgery Additional Past Surgical History / Comment(s): bilateral knee replacement, bilateral rotator cuff repair. kristine carpal tunnel X2, tumor removed from rt kidney ( kidney later from lack of blood flow), PAIN CLINIC PROCEDURES Past Anesthesia/Blood Transfusion Reactions: No Reported Reaction Additional Past Anesthesia/Blood Transfusion Reaction / Comment(s): no blood transfusions Past Psychological History: No Psychological Hx Reported Smoking Status: Former smoker Past Alcohol Use History: Rare Additional Past Alcohol Use History / Comment(s): quit smoking in the , smoked 1ppd smoked 20 yrs. Past Drug Use History: None Reported - Past Family History Mother Family Medical History: Cancer Additional Family Medical History / Comment(s): Colorectal Father Family Medical History: Cancer Additional Family Medical History / Comment(s): Colorectal cancer. throat cancer Medications and Allergies Home Medications Medication Instructions Recorded Confirmed Type Multivitamins, Thera [Multivitamin 1 each PO DAILY 04/07/14 05/15/23 History (formulary)] Aspirin [Adult Low Dose Aspirin EC] 81 mg PO DAILY 12/22/20 05/15/23 History Tamsulosin [Flomax] 0.4 mg PO DAILY 12/22/20 05/15/23 History lisinopriL [Zestril] 2.5 mg PO HS 12/22/20 05/15/23 History Dapagliflozin Propanediol [Farxiga] 10 mg PO DAILY 11/29/22 05/15/23 History Baclofen 10 mg PO Q12HR PRN 12/16/22 05/15/23 History Atorvastatin [Lipitor] 40 mg PO HS 05/15/23 05/15/23 History HYDROcodone/APAP 7.5-325MG [[place] 1 tab PO BID PRN 05/15/23 05/15/23 History 7.5-325] Tirzepatide [Mounjaro] 5 mg SQ WE 05/15/23 05/15/23 History Butalb/APAP/Caff 50-325-40Mg 1 each PO Q4HR PRN #30 tab 05/16/23 Rx [Fioricet 50-325-40] Clopidogrel [Plavix] 75 mg PO DAILY #30 tab 05/16/23 Rx Topiramate [Topamax] 25 mg PO BID #60 tab 05/16/23 Rx Allergies Allergy/AdvReac Type Severity Reaction Status Date / Time hydromorphone HCl Allergy Nausea & Verified 05/15/23 12:17 [From Dilaudid] Vomiting Physical Exam Vitals: Vital Signs Temp Pulse Resp BP BP Pulse Ox 05/16/23 09:15 98.1 F 73 16 143/72 96 05/16/23 02:18 97.3 F L 62 18 109/54 99 05/15/23 21:49 98.1 F 59 L 17 135/80 97 Intake and Output 05/15/23 05/16/23 05/16/23 22:59 06:59 14:59 Intake Total 118 Balance 118 Intake: Oral 118 Other: # Voids 1 Weight 86.636 kg Results CBC & Chem 7: 05/16/23 06:00 05/16/23 06:00 Labs: Abnormal Lab Results - Last 24 Hours (Table) 05/15/23 05/15/23 05/15/23 Range/Units 12:24 12:24 12:24 Lymphocytes # 0.7 L (1.0-4.8) k/uL Sodium 136 L (137-145) mmol/L Total Protein 5.7 L (6.3-8.2) g/dL Urine Protein (Negative) Urine Glucose (UA) (Negative) U Marijuana (THC) Screen Detected H (NotDetected) 05/15/23 05/16/23 Range/Units 12:24 06:00 Lymphocytes # 0.9 L (1.0-4.8) k/uL Sodium (137-145) mmol/L Total Protein (6.3-8.2) g/dL Urine Protein Trace H (Negative) Urine Glucose (UA) 4+ H (Negative) U Marijuana (THC) Screen (NotDetected) Thrombosis Risk Factor Assmnt - Choose All That Apply Any of the Below Risk Factors Present?: Yes Each Factor Represents 1 point: Obesity (BMI >25) Other Risk Factors: Yes Each Risk Factor Represents 2 Points: Age 61-74 years Other congenital or acquired thrombophilia - If yes, enter type in comment: No Thrombosis Risk Factor Assessment Total Risk Factor Score: 3 Thrombosis Risk Factor Assessment Level: Moderate Risk
[2023-05-16 16:07] VITALS: BP 127/76; PULSE 59; TEMP 98.4
--- NOTE | 2023-05-16 21:13 | EEG ---
ELECTROENCEPHALOGRAM REPORT PREAMBLE: This is a 73-year-old male, who has been having episodes of getting beet red, fuzzy, shaky, lasting for about 10 to 30 seconds. Rule out seizure activity. EEG FINDINGS: This is a 21-channel digital EEG recorded with video component, utilizing 10/[employer] System with referential and bipolar montages. Background consists of well-developed, well-regulated, moderate-voltage activity in 9 Hz alpha. Background is posterior dominant and reactive to eye opening and closing. Photic driving response was seen with some flash frequencies. Some left temporal theta was seen during early stage of drowsiness. Deeper stages of sleep were not seen. No focal or generalized epileptiform activity was seen. EKG channel showed no obvious arrhythmia. IMPRESSION: This is a normal awake and drowsy EEG. No focal, lateralized, or epileptiform activity was seen. Normal EEG does not rule out seizure disorder. If your suspicion for seizure is high, suggest prolonged, sleep-deprived EEG. MMODL / IJN: [id number] /
[2023-05-21] MEDS ORDERED: NON FORMULARY DRUG (Tirzepatide [Mounjaro] 5 MG/0.5 ML Pen.Injctr) SQ SCH (20:15)
== END 2023-05-16 16:31 | disposition home or self-care (01) ==
LOC: EC 11:16 → 6NMEDSUR 14:56
PROVIDERS: ADMIT Internal Medicine; ATTEND Internal Medicine
DX: G43.009 Migraine without aura, not intractable, without status migrainosus (principal); I10 Essential (primary) hypertension; E11.9 Type 2 diabetes mellitus without complications; E78.5 Hyperlipidemia, unspecified; N40.0 Benign prostatic hyperplasia without lower urinary tract symptoms; I08.1 Rheumatic disorders of both mitral and tricuspid valves; M47.812 Spondylosis without myelopathy or radiculopathy, cervical region; M47.816 Spondylosis without myelopathy or radiculopathy, lumbar region; M54.81 Occipital neuralgia; D35.02 Benign neoplasm of left adrenal gland; M19.90 Unspecified osteoarthritis, unspecified site; E66.9 Obesity, unspecified; Z68.27 Body mass index [BMI] 27.0-27.9, adult; Z79.85 Long-term (current) use of injectable non-insulin antidiabetic drugs; Z79.82 Long term (current) use of aspirin; Z79.84 Long term (current) use of oral hypoglycemic drugs; Z79.4 Long term (current) use of insulin; Z79.899 Other long term (current) drug therapy; Z88.5 Allergy status to narcotic agent; Z86.73 Personal history of transient ischemic attack (TIA), and cerebral infarction without residual deficits; Z96.653 Presence of artificial knee joint, bilateral; Z98.890 Other specified postprocedural states; Z80.8 Family history of malignant neoplasm of other organs or systems; Z80.0 Family history of malignant neoplasm of digestive organs; Z87.891 Personal history of nicotine dependence; Z82.0 Family history of epilepsy and other diseases of the nervous system; Z82.49 Family history of ischemic heart disease and other diseases of the circulatory system
CPT/HCPCS: 96372 ×3; 99285; 36415; 95816; 93005; 93306; 97162; 97166; 80053; 80048; 85652; 82140; 84484; 85025 ×2; 85610; 85730; 86140; 81003; 80306; 80320; 71046; 93880; 70450; 70551; G0378 ×2; J1644 ×2; 96361

== ENCOUNTER → 2023-08-21 | Outpatient (CLI) | payer MEDICARE ==
[2023-08-21 09:19] VITALS: BP 120/77; PULSE 93; RESP 15; TEMP 98.2
--- NOTE | 2023-08-21 12:31 | P.PAINPG ---
PQRS Measure Charge Sheet Comment: A 73 yr old male with a history of severe and chronic LBP x 9 yrs secondary to lumbar DDD and spondylosis with facet arthropathy without myelopathy presents today for evaluation. Pt states he experienced 60 % pain relief x 6-7 mo s/p BL RFA L3-L5 procedure from Jan 2023. Pain level is provoked at 6/10 in intensity, constant, localized in the lumbar spine, dull in character w/o shooting pain. Pain is provoked by over activity. Pain is alleviated with medications, physician guided exercises 3 times weekly x 6 yrs, heat, repositioning, injections and rest. Oswestry axial pain score of 15 Interventional pain procedures completed include BL RFA L3-L5 (Jan 2023) Patient is currently on [place] 7.5/325mg Patient denies any side effects of the medication(s), denies excessive drowsiness or sleepiness, denies suicidal ideation and reports that the current pain medication is helping to control the pain and improve activities of daily living. Patient denies any motor or sensory deficits. Patient denies any fever or night sweats, denies any change in the bowel movements or urination. Physical Examination: -Constitutional: Cooperative. Not in acute distress . - Neurologic: Cranial nerve II to XII intact. No focal neurological deficits. - Psychatric: Alert & oriented x 3. Matching mood & appropriate affect. Judgment and insight intact. - Musculoskeletal: Cervical spine: Muscle bulk/ tone/ strength in the bilateral upper extremities normal Vertebral body tenderness to palpation over Spurling test positive Distraction test positive Facet loading test positive TTP Thoracic spine Muscle bulk / tone/ strength in the bilateral paraspinal muscles normal Vertebral body tender to palpation over Facet loading test positive TTP Lumbar spine: Motor bulk/ tone/ strength lower extremities , thigh and legs : 5/5 Deep tendon reflexes : Normal Knee Jerk. Normal Ankle Jerk . Vertebral body tenderness to palpation over Lumbar Facet Loading Test positive over BL L4-L5, L5-S1 Straight Leg Raise: positive at 30 degrees right side/ left side Gaenslen's Test positive Sacral spine : Severe tenderness over the Sacroiliac joint: right side / left side Range of motion: Flexion of the lumbar spine <60 degrees Range of motion: Extension of the lumbar spine <20 degrees Gaenslen's Test positive right side / left side Angella test: positive right side / left side Thigh Thrust Test positive right side / left side Sacral Thrust Test positive right side / left side Assessment and plan: Chronic LBP secondary to lumbar DDD, spondylosis with facet arthropathy without myelopathy Recommendation of BL RFA L4-L5, L5-S1. Pt exhibited sufficient and substantial pain relief w prior RFA from Jan 2023. Risks, benefits of procedure discussed and patient verbalized understanding. Protocol for discontinuation/continuation of medications surrounding procedure discussed.. All questions answered. I have spent less than 30 minutes on patient care today. Dr Richard was available by phone for the evaluation of this patient. The time was used to review the medical records including relevant urine studies and Prescription history (MAPs), review of the available imaging, evaluation and examination of the patient, coordination of care with the medical staff and if applicable referring physicians, as well as creation of the medical record PQRS Narrative: Smoking Status Former smoker Hx Alcohol Use (MH) No Home Medications: Ambulatory Orders Multivitamins, Thera [Multivitamin (formulary)] 1 each PO DAILY 04/07/14 Aspirin [Adult Low Dose Aspirin EC] 81 mg PO DAILY 12/22/20 Tamsulosin [Flomax] 0.4 mg PO DAILY 12/22/20 lisinopriL [Zestril] 2.5 mg PO HS 12/22/20 Dapagliflozin Propanediol [Farxiga] 10 mg PO DAILY 11/29/22 Baclofen 10 mg PO Q12HR PRN 12/16/22 Atorvastatin [Lipitor] 40 mg PO HS 05/15/23 HYDROcodone/APAP 7.5-325MG [[place] 7.5-325] 1 tab PO BID PRN 05/15/23 Tirzepatide [Mounjaro] 5 mg SQ WE 05/15/23 Butalb/APAP/Caff 50-325-40Mg [Fioricet 50-325-40] 1 each PO Q4HR PRN #30 tab 05/16/23 Clopidogrel [Plavix] 75 mg PO DAILY #30 tab 05/16/23 Topiramate [Topamax] 25 mg PO BID #60 tab 05/16/23 Controlled Substance Measures - Controlled Substance Measures Is patient prescribed a controlled substance at discharge?: No
== END ==
LOC: PNWHC3 07:17
PROVIDERS: ATTEND Specialist
DX: M51.37 Other intervertebral disc degeneration, lumbosacral region (principal); M47.817 Spondylosis without myelopathy or radiculopathy, lumbosacral region; G89.29 Other chronic pain; Z87.891 Personal history of nicotine dependence; Z79.82 Long term (current) use of aspirin; Z88.5 Allergy status to narcotic agent
CPT/HCPCS: 99211

== ENCOUNTER → 2023-09-19 | Day surgery (SDC) | payer MEDICARE ==
[~2023-09-19] MED LIST changes: +LACTATED RINGERS 1,000 ML IV ONE; +MIDAZOLAM 2 MG/2 ML VIAL ONE; +ROPIVACAINE 5MG/ML 20ML VIAL ONE; +TRIAMCINOLONE ACETONIDE 40 MG/ML 1 ML VIAL ONE; +fentaNYL (PF) 50 MCG/ML 2 ML AMP ONE
[2023-09-19 09:52] LABS: Glucose,Whole Blood 101 mg/dL (70-110)
[2023-09-19 09:57] VITALS: TEMP 96.9
--- NOTE | 2023-09-19 10:21 | P.PCN ---
Date of Procedure: 09/19/23 Surgeon: Anila Paul Pathology: none sent Condition: stable Disposition: PACU Description of Procedure: PREOPERATIVE DIAGNOSIS: Lumbar spondylosis without myelopathy POSTOPERATIVE DIAGNOSIS: Lumbar spondylosis without myelopathy PROCEDURES : Bilateral Radiofrequency thermocoagulation L4-L5, and L5-S1 medial branch, with fluoroscopic guidance ANESTHESIA: Local with lidocaine 1% using 25-gauge needle and IV moderate conscious sedation by the anesthesia Department Physician: Anila Paul MD EBL: Minimal PROCEDURE INDICATION: The patient with low back pain secondary to lumbar facet arthropathy who had significant relief of pain with previous diagnostic lumbar medial branch block with Ropivacaine0.5%. PROCEDURE DESCRIPTION / TECHNIQUE: The patient was seen and identified in the preoperative area. Risks, benefits, complications, including but not limited to risk of infection ,bleeding , allergic reactions to the medications and no complete pain relief , and alternatives were discussed with the patient, the patient agreed to proceed with the procedure and signed the consent. IV was started. Vital signs remained stable throughout the procedure. Patient was taken to the OR and time out was completed. The patient was placed in the prone position on the procedure table. The lumber area was prepped and draped in the usual sterile fashion. . Vital signs were closely monitored during the procedure .IV sedation was used during the procedure to decrease patients anxiety. The target points were identified as follows: For the L5-S1 level which corresponds to the dorsal ramus of L5 the target point was at the superior medial aspect of the sacral ala on the Rt side of the spine on the AP view of fluoroscopy and for the L3, and L4 medial branches the target points were at t he connection between the transverse process and the superior articular process of L4, and L5 vertebra respectively on the Rt oblique view of fluoroscopy. skin was marked, and localized with 1% lidocaineat these points. Subsequently, an 18 essio856-br radiofrequency needles with a 10-mm curved active tips were advanced guided by fluoroscopy to each of the target points mentioned above in a superior medial direction to get the active tips as parallel as possible to the medial branches tracks. AP, oblique, and lateral views of fluoroscopy were used to verify needle tips position. Each level then underwent motor testing at 2.5 Hz and 0 to 3 volt with local stimulation, but no radicular symptoms down the legs. I then injected 1 mL of lidocaine 1% in each needle before starting radiofrequency thermocoagulation at 80 degrees celsius for 90 seconds. After that I injected 1 ml of PF Ropivacaine 0.5%(3 mls) with 40 mg of Kenalog, 1 mL of this mixture was given in each needle before taking the needles out intact. Then the left side with the same levels was done in the same manner. At the end of the procedure, the skin was cleansed and bandages were applied. A copy of needle placement fluoroscopy was saved on the C-arm machine. COMPLICATIONS: No acute complications. DISPOSITION / PLANS: The patient was placed in a supine position and transferred to the recovery area in a stable condition for observation and was discharged from the recovery room after meeting discharge criteria. Home discharge instructions given to the patient by the staff. The patient was reexamined prior to discharge. The patient will schedule a follow up in the clinic in 2-4 weeks.
[2023-09-19 10:42] VITALS: RESP 12
[2023-09-19 11:04] VITALS: BP 94/58; PULSE 71
--- NOTE | 2023-09-19 11:59 | FL ---
Fluoroscopy History: RF LUMBAR FL TIME 16.4 DAP [id number]
== END ==
LOC: ORPAIN 08:39
PROVIDERS: ATTEND Anesthesiology
DX: M47.816 Spondylosis without myelopathy or radiculopathy, lumbar region (principal); I10 Essential (primary) hypertension; E78.5 Hyperlipidemia, unspecified; E11.9 Type 2 diabetes mellitus without complications; Z86.73 Personal history of transient ischemic attack (TIA), and cerebral infarction without residual deficits; Z79.899 Other long term (current) drug therapy
CPT/HCPCS: 64635; 64636 ×2; J2250; J3301; J3010; J2795

== ENCOUNTER → 2023-10-20 | Outpatient (CLI) | payer MEDICARE ==
[2023-10-20 09:31] VITALS: BP 119/79; PULSE 94; RESP 16; TEMP 97.9
--- NOTE | 2023-10-20 12:31 | P.PAINPG ---
PQRS Measure Charge Sheet Comment: A 73 yr old male with a history of severe and chronic LBP x 9 yrs secondary to lumbar DDD and spondylosis with facet arthropathy without myelopathy presents today for evaluation s/p BL RFA L3-L5. Pt states he experienced 100 % pain relief s/p procedure. Pain level is provoked at 0/10 in intensity. Pain is alleviated with injections, medications, physician guided exercises 3 times weekly x 6 yrs, heat, repositioning, injections and rest. Oswestry axial pain score of 15 Interventional pain procedures completed include BL RFA L3-L5 (Jan 2023, Aug 2023) Patient is currently on [place] 7.5/325mg Patient denies any side effects of the medication(s), denies excessive drowsiness or sleepiness, denies suicidal ideation and reports that the current pain medication is helping to control the pain and improve activities of daily living. Patient denies any motor or sensory deficits. Patient denies any fever or night sweats, denies any change in the bowel movements or urination. Physical Examination: -Constitutional: Cooperative. Not in acute distress . - Neurologic: Cranial nerve II to XII intact. No focal neurological deficits. - Psychatric: Alert & oriented x 3. Matching mood & appropriate affect. Judgment and insight intact. - Musculoskeletal: Cervical spine: Muscle bulk/ tone/ strength in the bilateral upper extremities normal Vertebral body tenderness to palpation over Spurling test positive Distraction test positive Facet loading test positive TTP Thoracic spine Muscle bulk / tone/ strength in the bilateral paraspinal muscles normal Vertebral body tender to palpation over Facet loading test positive TTP Lumbar spine: Motor bulk/ tone/ strength lower extremities , thigh and legs : 5/5 Deep tendon reflexes : Normal Knee Jerk. Normal Ankle Jerk . Vertebral body tenderness to palpation over Lumbar Facet Loading Test positive over BL L4-L5, L5-S1 Straight Leg Raise: positive at 30 degrees right side/ left side Gaenslen's Test positive Sacral spine : Severe tenderness over the Sacroiliac joint: right side / left side Range of motion: Flexion of the lumbar spine <60 degrees Range of motion: Extension of the lumbar spine <20 degrees Gaenslen's Test positive right side / left side Angella test: positive right side / left side Thigh Thrust Test positive right side / left side Sacral Thrust Test positive right side / left side Assessment and plan: Chronic LBP secondary to lumbar DDD, spondylosis with facet arthropathy without myelopathy Will manage residual pain and may RTC on an as needed basis. All questions answered. I have spent less than 30 minutes on patient care today. Dr Richard was available by phone for the evaluation of this patient. The time was used to review the medical records including relevant urine studies and Prescription history (MAPs), review of the available imaging, evaluation and examination of the patient, coordination of care with the medical staff and if applicable referring physicians, as well as creation of the medical record PQRS Narrative: Smoking Status Former smoker Hx Alcohol Use (MH) No Home Medications: Ambulatory Orders Multivitamins, Thera [Multivitamin (formulary)] 1 each PO DAILY 04/07/14 Aspirin [Adult Low Dose Aspirin EC] 81 mg PO DAILY 12/22/20 Tamsulosin [Flomax] 0.4 mg PO DAILY 12/22/20 lisinopriL [Zestril] 2.5 mg PO HS 12/22/20 Dapagliflozin Propanediol [Farxiga] 10 mg PO DAILY 11/29/22 Baclofen 10 mg PO Q12HR PRN 12/16/22 Atorvastatin [Lipitor] 40 mg PO HS 05/15/23 HYDROcodone/APAP 7.5-325MG [[place] 7.5-325] 1 tab PO BID PRN 05/15/23 Tirzepatide [Mounjaro] 5 mg SQ WE 05/15/23 Butalb/APAP/Caff 50-325-40Mg [Fioricet 50-325-40] 1 each PO Q4HR PRN #30 tab 05/16/23 Clopidogrel [Plavix] 75 mg PO DAILY #30 tab 05/16/23 Topiramate [Topamax] 25 mg PO BID #60 tab 05/16/23 Controlled Substance Measures - Controlled Substance Measures Is patient prescribed a controlled substance at discharge?: No
== END ==
LOC: PNWHC3 08:19
PROVIDERS: ATTEND Specialist
DX: M51.37 Other intervertebral disc degeneration, lumbosacral region (principal); M47.817 Spondylosis without myelopathy or radiculopathy, lumbosacral region; G89.29 Other chronic pain; Z87.891 Personal history of nicotine dependence; Z79.82 Long term (current) use of aspirin; Z88.5 Allergy status to narcotic agent
CPT/HCPCS: 99211

== ENCOUNTER → 2024-01-29 | Outpatient (CLI) | payer MEDICARE ==
[2024-01-29 08:54] VITALS: BP 110/67; PULSE 87; RESP 16; TEMP 97.1
--- NOTE | 2024-01-29 14:15 | P.PAINPG ---
PQRS Measure Charge Sheet Comment: A 73 yr old male with a history of severe and chronic LBP x 9 yrs secondary to lumbar DDD and spondylosis with facet arthropathy without myelopathy presents today for evaluation. Pain level is provoked at 8 /10 in intensity, predominantly axial, constant, achy in character w occasional radiation towards the BLEs. Pain is alleviated with injections, medications, topicals, physician guided exercises 3 times weekly x 6 yrs, heat, repositioning, injections and rest. Oswestry axial pain score of 16. Interventional pain procedures completed include BL RFA L3-L5 (Dec 2022, Aug 2023) Patient is currently on [place] 7.5/325mg, Baclofen, Cannabis use Patient denies any side effects of the medication(s), denies excessive drowsiness or sleepiness, denies suicidal ideation and reports that the current pain medication is helping to control the pain and improve activities of daily living. Patient denies any motor or sensory deficits. Patient denies any fever or night sweats, denies any change in the bowel movements or urination. Physical Examination: -Constitutional: Cooperative. Not in acute distress . - Neurologic: Cranial nerve II to XII intact. No focal neurological deficits. - Psychatric: Alert & oriented x 3. Matching mood & appropriate affect. Judgment and insight intact. - Musculoskeletal: Cervical spine: Muscle bulk/ tone/ strength in the bilateral upper extremities normal Vertebral body tenderness to palpation over Spurling test positive Distraction test positive Facet loading test positive TTP Thoracic spine Muscle bulk / tone/ strength in the bilateral paraspinal muscles normal Vertebral body tender to palpation over Facet loading test positive TTP Lumbar spine: Motor bulk/ tone/ strength lower extremities , thigh and legs : 5/5 Deep tendon reflexes : Normal Knee Jerk. Normal Ankle Jerk . Vertebral body tenderness to palpation over Lumbar Facet Loading Test positive Taut bands w twitch response over L2-S1 Straight Leg Raise: positive at 30 degrees right side/ left side Gaenslen's Test positive Sacral spine : Severe tenderness over the Sacroiliac joint: right side / left side Range of motion: Flexion of the lumbar spine <60 degrees Range of motion: Extension of the lumbar spine <20 degrees Gaenslen's Test positive right side / left side Angella test: positive right side / left side Thigh Thrust Test positive right side / left side Sacral Thrust Test positive right side / left side Assessment and plan: Chronic LBP secondary to lumbar DDD, spondylosis with facet arthropathy without myelopathy Recommendation of BL TPIs L2-S1 #1. May need a series of injections for optimal pain relief. Risks, benefits of procedure discussed and patient verbalized understanding. Protocol for discontinuation/continuation of medication surrounding procedure discussed. All questions answered. I have spent less than 30 minutes on patient care today. Dr Richard was available by phone for the evaluation of this patient. The time was used to review the medical records including relevant urine studies and Prescription history (MAPs), review of the available imaging, evaluation and examination of the patient, coordination of care with the medical staff and if applicable referring physicians, as well as creation of the medical record PQRS Narrative: Smoking Status Former smoker Hx Alcohol Use (MH) No Home Medications: Ambulatory Orders Multivitamins, Thera [Multivitamin (formulary)] 1 each PO DAILY 04/07/14 Aspirin [Adult Low Dose Aspirin EC] 81 mg PO DAILY 12/22/20 Tamsulosin [Flomax] 0.4 mg PO DAILY 12/22/20 lisinopriL [Zestril] 2.5 mg PO HS 12/22/20 Dapagliflozin Propanediol [Farxiga] 10 mg PO DAILY 11/29/22 Baclofen 10 mg PO Q12HR PRN 12/16/22 Atorvastatin [Lipitor] 40 mg PO HS 05/15/23 HYDROcodone/APAP 7.5-325MG [[place] 7.5-325] 1 tab PO BID PRN 05/15/23 Tirzepatide [Mounjaro] 5 mg SQ WE 05/15/23 Butalb/APAP/Caff 50-325-40Mg [Fioricet 50-325-40] 1 each PO Q4HR PRN #30 tab 05/16/23 Clopidogrel [Plavix] 75 mg PO DAILY #30 tab 05/16/23 Topiramate [Topamax] 25 mg PO BID #60 tab 05/16/23 Controlled Substance Measures - Controlled Substance Measures Is patient prescribed a controlled substance at discharge?: No
== END ==
LOC: PNWHC3 08:05
PROVIDERS: ATTEND Specialist
DX: M51.37 Other intervertebral disc degeneration, lumbosacral region (principal); M47.817 Spondylosis without myelopathy or radiculopathy, lumbosacral region; G89.29 Other chronic pain; Z87.891 Personal history of nicotine dependence; Z79.82 Long term (current) use of aspirin; Z88.5 Allergy status to narcotic agent
CPT/HCPCS: 99211

== ENCOUNTER 2024-02-17 08:16 | Day surgery (SDC) | payer MEDICARE ==
[2024-02-12 12:55] VITALS: BMI 23.8
[~2024-02-17 08:16] MED LIST changes: -LACTATED RINGERS 1,000 ML IV ONE; -MIDAZOLAM 2 MG/2 ML VIAL ONE; -ROPIVACAINE 5MG/ML 20ML VIAL ONE; -TRIAMCINOLONE ACETONIDE 40 MG/ML 1 ML VIAL ONE; -fentaNYL (PF) 50 MCG/ML 2 ML AMP ONE
[2024-02-17 09:01] VITALS: RESP 16; TEMP 98
[2024-02-17 09:18] LABS: Glucose,Whole Blood 128 mg/dL (70-110)
[2024-02-17] MEDS ORDERED: ROPIVACAINE 5MG/ML 20ML VIAL ONE (09:21)
[2024-02-17] MEDS ORDERED: methylPREDNISolone ACETATE 40 MG/ML 1 ML VIAL ONE (09:21)
--- NOTE | 2024-02-17 09:32 | P.PCN ---
Date of Procedure: 02/17/24 Procedure(s) Performed: Preoperative diagnoses= 1. Bilateral Lumbar paraspinal myofascial pain Postoperative diagnoses= Bilateral lumbar paraspinal myofascial pain Procedure: Bilateral iliolumbar ligament injection Anesthesia: None Estimated blood loss: None Procedure indication: Patient has a history of chronic low back pain that has failed conservative therapy. Has had bilateral radio pharmacy ablation of L4- L5, L5-S1 medial branches. Provides improvement greater than 80%. However stil l has persistent low back pain worse with flexion with significant tender pressure points along the paraspinal muscles Procedure description: The patient was seen and identified in the preoperative holding area, risks and benefits and alternative of the procedure and possible complications discussed with the patient, and he agreed with the preceding, patient signed the consent, and vital signs were monitored and were stable throughout the procedure, patient was placed in the prone position on the operative table, vital signs were closely monitored during the procedure. Ultrasound guidance was utilized for needle placement and visualization of medication injection. Lumbar paraspinal muscle chair was identified after palpation for tender points. A solution consisting of 6 mL of 0.5% ropivacaine and 40 mg of Kenalog was utilized. Then a 25-gauge spinal needle was utilized under direct ultrasound guidance. Needle was identified. Once in the muscle, after negative aspiration 3-1/2 ML's injected into the left side side. The same procedure was done on the right side. Then the skin was cleaned and a Band-Aid applied, the patient transported to recovery room in stable condition and he was monitored for 30 minutes before he was discharged home and then patient was reexamined before going home and patient was discharged in stable condition and patient will follow up with the pain clinic in a few weeks
[2024-02-17 10:11] VITALS: BP 103/67; PULSE 81
== END 2024-02-17 10:01 | disposition home or self-care (01) ==
LOC: ORPAIN 08:16
PROVIDERS: ATTEND Anesthesiology
DX: M79.18 Myalgia, other site (principal); G89.29 Other chronic pain; E11.9 Type 2 diabetes mellitus without complications; Z88.5 Allergy status to narcotic agent; Z79.899 Other long term (current) drug therapy
CPT/HCPCS: 20552; J1030; J2795; 20553

== ENCOUNTER → 2024-03-04 | Outpatient (CLI) | payer MEDICARE ==
[2024-03-04 09:39] VITALS: BP 103/66; PULSE 75; RESP 16; TEMP 98.3
--- NOTE | 2024-03-04 13:59 | P.PAINPG ---
PQRS Measure Charge Sheet Comment: A 73 yr old male with a history of severe and chronic LBP x 9 yrs secondary to lumbar DDD and spondylosis with facet arthropathy without myelopathy presents today for evaluation s/p BL TPIs L2-S1 #1. Pt states he experienced 90 % pain relief x 3 wks s/p procedure. Pain level is provoked at 6 /10 in intensity, predominantly axial, constant, achy in character w occasional radiation towards the BLEs. Pain is alleviated with injections, medications, topicals, physician guided exercises 3 times weekly x 6 yrs, heat, repositioning, injections and rest. Oswestry axial pain score of 13. Interventional pain procedures completed include BL RFA L3-L5 (Dec 2022, Aug 2023), BL TPIs L2-S1 x1 Patient is currently on [place] 7.5/325mg, Baclofen, Cannabis use Patient denies any side effects of the medication(s), denies excessive drowsiness or sleepiness, denies suicidal ideation and reports that the current pain medication is helping to control the pain and improve activities of daily living. Patient denies any motor or sensory deficits. Patient denies any fever or night sweats, denies any change in the bowel movements or urination. Physical Examination: -Constitutional: Cooperative. Not in acute distress . - Neurologic: Cranial nerve II to XII intact. No focal neurological deficits. - Psychatric: Alert & oriented x 3. Matching mood & appropriate affect. Judgment and insight intact. - Musculoskeletal: Cervical spine: Muscle bulk/ tone/ strength in the bilateral upper extremities normal Vertebral body tenderness to palpation over Spurling test positive Distraction test positive Facet loading test positive TTP Thoracic spine Muscle bulk / tone/ strength in the bilateral paraspinal muscles normal Vertebral body tender to palpation over Facet loading test positive TTP Lumbar spine: Motor bulk/ tone/ strength lower extremities , thigh and legs : 5/5 Deep tendon reflexes : Normal Knee Jerk. Normal Ankle Jerk . Vertebral body tenderness to palpation over Lumbar Facet Loading Test positive Taut bands w twitch response over L2-S1 Straight Leg Raise: positive at 30 degrees right side/ left side Gaenslen's Test positive Sacral spine : Severe tenderness over the Sacroiliac joint: right side / left side Range of motion: Flexion of the lumbar spine <60 degrees Range of motion: Extension of the lumbar spine <20 degrees Gaenslen's Test positive right side / left side Angella test: positive right side / left side Thigh Thrust Test positive right side / left side Sacral Thrust Test positive right side / left side Assessment and plan: Chronic LBP secondary to lumbar DDD, spondylosis with facet arthropathy without myelopathy Recommendation of BL TPIs L2-S1 #2. May need a series of injections for optimal pain relief. Risks, benefits of procedure discussed and patient verbalized understanding. Protocol for discontinuation/continuation of medication surrounding procedure discussed. All questions answered. I have spent less than 30 minutes on patient care today. Dr Richard was available by phone for the evaluation of this patient. The time was used to review the medical records including relevant urine studies and Prescription history (MAPs), review of the available imaging, evaluation and examination of the patient, coordination of care with the medical staff and if applicable ref erring physicians, as well as creation of the medical record PQRS Narrative: Smoking Status Former smoker Hx Alcohol Use (MH) No Home Medications: Ambulatory Orders Multivitamins, Thera [Multivitamin (formulary)] 1 each PO DAILY 04/07/14 Aspirin [Adult Low Dose Aspirin EC] 81 mg PO DAILY 12/22/20 Tamsulosin [Flomax] 0.4 mg PO DAILY 12/22/20 lisinopriL [Zestril] 2.5 mg PO HS 12/22/20 Dapagliflozin Propanediol [Farxiga] 10 mg PO DAILY 11/29/22 Baclofen 10 mg PO Q12HR PRN 12/16/22 Atorvastatin [Lipitor] 40 mg PO HS 05/15/23 HYDROcodone/APAP 7.5-325MG [[place] 7.5-325] 1 tab PO BID PRN 05/15/23 Tirzepatide [Mounjaro] 5 mg SQ WE 05/15/23 Butalb/APAP/Caff 50-325-40Mg [Fioricet 50-325-40] 1 each PO Q4HR PRN #30 tab 05/16/23 Clopidogrel [Plavix] 75 mg PO DAILY #30 tab 05/16/23 Topiramate [Topamax] 25 mg PO BID #60 tab 05/16/23 Ubrogepant [Ubrelvy] 100 mg PO DIRECTED PRN 02/12/24 Controlled Substance Measures - Controlled Substance Measures Is patient prescribed a controlled substance at discharge?: No
== END ==
LOC: PNWHC3 07:52
PROVIDERS: ATTEND Specialist
DX: M51.37 Other intervertebral disc degeneration, lumbosacral region (principal); M47.817 Spondylosis without myelopathy or radiculopathy, lumbosacral region; G89.29 Other chronic pain; Z87.891 Personal history of nicotine dependence; Z88.5 Allergy status to narcotic agent
CPT/HCPCS: 99211

== ENCOUNTER 2024-03-09 08:53 | Day surgery (SDC) | payer MEDICARE ==
[2024-03-09 09:43] LABS: Glucose,Whole Blood 112 mg/dL (70-110)
[2024-03-09 09:48] VITALS: TEMP 98.4
[2024-03-09] MEDS ORDERED: ROPIVACAINE 5MG/ML 20ML VIAL ONE (10:06)
[2024-03-09] MEDS ORDERED: methylPREDNISolone ACETATE 40 MG/ML 1 ML VIAL ONE (10:06)
--- NOTE | 2024-03-09 10:13 | P.PCN ---
Date of Procedure: 03/09/24 Procedure(s) Performed: Procedure= trigger point injections lumbar paraspinal muscles bilaterally , 3 on the right side from L2 to S1, and 4 on the left side from L2 to S1 Preoperative diagnosis= 1-myofascial pain syndrome lumbar paraspinal muscles 2-lumbar degenerative disc disease 3-lumbar facet arthropathy Postoperative diagnosis=Same as preop Diagnosis . Complication = none Condition= stable Anesthesia= none Indication for the procedure= patient complaining of low back pain , examination was positive for multiple trigger point in the lumbar paraspinal muscles bilaterally and patient diagnosed with myofascial pain syndrome and is here to have trigger point injections Description of the procedure= procedure risk and benefits discussed with the patient, including but not limited, risk of infection and bleeding, and ALLERGIC reaction to the medication and not complete pain relief and patient agreed with the preceding patient taken to the operating room, placed in sitting position or standard monitors applied to the patient then after induction of anesthesia back prepped with chlorhexidine 3 times , then under sterile technique each of the trigger point that was marked in the preop holding area 3 on the right side lumbar paraspinal muscles and 4 on the left side lumbar paraspinal muscles each one of them injected with the 2 mL of the mixture of ropivacaine 0.5% 14 ML mixed with 40 mg of Depo-Medrol and 2 mL of the mixture injected at each trigger point after negative aspiration, using 25-gauge needle, injection done after negative aspiration under was no paresthesia during the injection patient tolerated the procedure well without any complications and he will follow up in the pain clinic in a few weeks
[2024-03-09 11:09] VITALS: BP 102/58; PULSE 72; RESP 18
== END 2024-03-09 10:52 | disposition home or self-care (01) ==
LOC: ORPAIN 08:53
PROVIDERS: ATTEND Anesthesiology
DX: M79.18 Myalgia, other site (principal); M47.816 Spondylosis without myelopathy or radiculopathy, lumbar region; M51.36 Other intervertebral disc degeneration, lumbar region; Z79.82 Long term (current) use of aspirin; Z79.02 Long term (current) use of antithrombotics/antiplatelets; Z88.8 Allergy status to other drugs, medicaments and biological substances
CPT/HCPCS: 20553; J1030; J2795

== ENCOUNTER → 2024-03-22 | Outpatient (CLI) | payer MEDICARE ==
[2024-03-22 09:52] VITALS: BP 111/72; PULSE 88; RESP 16; TEMP 97.5
--- NOTE | 2024-03-22 09:53 | P.PAINPG ---
PQRS Measure Charge Sheet Comment: A 73 yr old male with a history of severe and chronic LBP x 9 yrs secondary to lumbar DDD and spondylosis with facet arthropathy without myelopathy presents today for evaluation s/p BL TPIs L2-S1 #2. Pt states he experienced 90 % pain relief x 2 wks s/p procedure. Pain level is provoked at 2 /10 in intensity, predominantly axial, constant, achy in character w occasional radiation towards the BLEs. Pain is alleviated with injections, medications, topicals, physician guided exercises 3 times weekly x 6 yrs, heat, repositioning, injections and rest. Oswestry axial pain score of 8. Interventional pain procedures completed include BL RFA L3-L5 (Dec 2022, Aug 2023), BL TPIs L2-S1 x2 Patient is currently on [place] 7.5/325mg, Baclofen, Cannabis use Patient denies any side effects of the medication(s), denies excessive drowsiness or sleepiness, denies suicidal ideation and reports that the current pain medication is helping to control the pain and improve activities of daily living. Patient denies any motor or sensory deficits. Patient denies any fever or night sweats, denies any change in the bowel movements or urination. Physical Examination: -Constitutional: Cooperative. Not in acute distress . - Neurologic: Cranial nerve II to XII intact. No focal neurological deficits. - Psychatric: Alert & oriented x 3. Matching mood & appropriate affect. Judgment and insight intact. - Musculoskeletal: Cervical spine: Muscle bulk/ tone/ strength in the bilateral upper extremities normal Vertebral body tenderness to palpation over Spurling test positive Distraction test positive Facet loading test positive TTP Thoracic spine Muscle bulk / tone/ strength in the bilateral paraspinal muscles normal Vertebral body tender to palpation over Facet loading test positive TTP Lumbar spine: Motor bulk/ tone/ strength lower extremities , thigh and legs : 5/5 Deep tendon reflexes : Normal Knee Jerk. Normal Ankle Jerk . Vertebral body tenderness to palpation over Lumbar Facet Loading Test positive Taut bands w twitch response over L2-S1 Straight Leg Raise: positive at 30 degrees right side/ left side Gaenslen's Test positive Sacral spine : Severe tenderness over the Sacroiliac joint: right side / left side Range of motion: Flexion of the lumbar spine <60 degrees Range of motion: Extension of the lumbar spine <20 degrees Gaenslen's Test positive right side / left side Angella test: positive right side / left side Thigh Thrust Test positive right side / left side Sacral Thrust Test positive right side / left side Assessment and plan: Chronic LBP secondary to lumbar DDD, spondylosis with facet arthropathy without myelopathy Will manage residual pain and may RTC on an as needed basis. All questi ons answered. I have spent less than 30 minutes on patient care today. Dr Richard was available by phone for the evaluation of this patient. The time was used to review the medical records including relevant urine studies and Prescription history (MAPs), review of the available imaging, evaluation and examination of the patient, coordination of care with the medical staff and if applicable refer ring physicians, as well as creation of the medical record PQRS Narrative: Smoking Status Former smoker Hx Alcohol Use (MH) No Home Medications: Ambulatory Orders Multivitamins, Thera [Multivitamin (formulary)] 1 each PO DAILY 04/07/14 Aspirin [Adult Low Dose Aspirin EC] 81 mg PO DAILY 12/22/20 Tamsulosin [Flomax] 0.4 mg PO DAILY 12/22/20 lisinopriL [Zestril] 2.5 mg PO HS 12/22/20 Dapagliflozin Propanediol [Farxiga] 10 mg PO DAILY 11/29/22 Baclofen 10 mg PO Q12HR PRN 12/16/22 Atorvastatin [Lipitor] 40 mg PO HS 05/15/23 Tirzepatide [Mounjaro] 5 mg SQ WE 05/15/23 Butalb/APAP/Caff 50-325-40Mg [Fioricet 50-325-40] 1 each PO Q4HR PRN #30 tab 05/16/23 Clopidogrel [Plavix] 75 mg PO DAILY #30 tab 05/16/23 Topiramate [Topamax] 25 mg PO BID #60 tab 05/16/23 Ubrogepant [Ubrelvy] 100 mg PO DIRECTED PRN 02/12/24 Controlled Substance Measures - Controlled Substance Measures Is patient prescribed a controlled substance at discharge?: No
== END ==
LOC: PNWHC3 09:18
PROVIDERS: ATTEND Specialist
DX: M51.37 Other intervertebral disc degeneration, lumbosacral region (principal); M47.817 Spondylosis without myelopathy or radiculopathy, lumbosacral region; G89.29 Other chronic pain; Z87.891 Personal history of nicotine dependence; Z88.5 Allergy status to narcotic agent
CPT/HCPCS: 99211

== ENCOUNTER → 2024-08-09 | Outpatient (CLI) | payer MEDICARE ==
[2024-08-09 08:47] VITALS: BP 126/70; PULSE 48; RESP 16; TEMP 97.8
--- NOTE | 2024-08-09 13:32 | P.PAINPG ---
PQRS Measure Charge Sheet Comment: A 74 yr old male with a history of severe and chronic LBP x 9 yrs secondary to lumbar DDD and spondylosis with facet arthropathy without myelopathy presents today for evaluation. Pt underwent a BL RFA L4-L5/ L5-S1 in Aug 2023 where he experienced 80 % pain relief x 10 mo s/p procedure. Pain level is provoked at 7 /10 in intensity, predominantly axial, constant, achy in character without shooting pain. Pain is alleviated with injections, medications, topicals, physician guided exercises 3 times weekly x 6 yrs, heat, repositioning, injections and rest. Interventional pain procedures completed include BL RFA L3-L5 (Dec 2022, Aug 2023), BL TPIs L2-S1 x2 Patient is currently on [place] 7.5/325mg, Baclofen, Cannabis use Patient denies any side effects of the medication(s), denies excessive drowsiness or sleepiness, denies suicidal ideation and reports that the current pain medication is helping to control the pain and improve activities of daily living. Patient denies any motor or sensory deficits. Patient denies any fever or night sweats, denies any change in the bowel movements or urination. Physical Examination: -Constitutional: Cooperative. Not in acute distress . - Neurologic: Cranial nerve II to XII intact. No focal neurological deficits. - Psychatric: Alert & oriented x 3. Matching mood & appropriate affect. Judgment and insight intact. - Musculoskeletal: Cervical spine: Muscle bulk/ tone/ strength in the bilateral upper extremities normal Vertebral body tenderness to palpation over Spurling test positive Distraction test positive Facet loading test positive TTP Thoracic spine Muscle bulk / tone/ strength in the bilateral paraspinal muscles normal Vertebral body tender to palpation over Facet loading test positive TTP Lumbar spine: Motor bulk/ tone/ strength lower extremities , thigh and legs : 5/5 Deep tendon reflexes : Normal Knee Jerk. Normal Ankle Jerk . Vertebral body tenderness to palpation over Lumbar Facet Loading Test positive BL L4-L5/ L5-S1 Taut bands w twitch response over L2-S1 Straight Leg Raise: positive at 30 degrees right side/ left side Gaenslen's Test positive Sacral spine : Severe tenderness over the Sacroiliac joint: right side / left side Range of motion: Flexion of the lumbar spine <60 degrees Range of motion: Extension of the lumbar spine <20 degrees Gaenslen's Test positive right side / left side Angella test: positive right side / left side Thigh Thrust Test positive right side / left side Sacral Thrust Test positive right side / left side Assessment and plan: Chronic LBP secondary to lumbar DDD, spondylosis with facet arthropathy without myelopathy Recommendation of BL RFA L4-L5/ L5-S1. Pt exhibited optimal pain relief w prior BL RFA procedure. Risks, benefits of procedure discussed and pt verbalized understanding. Protocol for discontinuation/ continuation of medications geoff procedure discussed. Minimal anesthesia including Fentanyl and Versed if clinically indicated. All questions answered. I have spent less than 30 minutes on patient care today. Dr Richard was available by phone for the evaluation of this patient. The time was used to review the medical records including relevant urine studies and Prescription history (MAPs), review of the available imaging, evaluation and examination of the patient, coordination of care with the medical staff and if applicable referring physicians, as well as creation of the medical record - Pain Location Lower Back Pharmacological Interventions: Epidural, PRN Medication PQRS Narrative: Smoking Status Former smoker Hx Alcohol Use (MH) No Home Medications: Ambulatory Orders Multivitamins, Thera [Multivitamin (formulary)] 1 each PO DAILY 04/07/14 Aspirin [Adult Low Dose Aspirin EC] 81 mg PO DAILY 12/22/20 Tamsulosin [Flomax] 0.4 mg PO DAILY 12/22/20 lisinopriL [Zestril] 2.5 mg PO HS 12/22/20 Dapagliflozin Propanediol [Farxiga] 10 mg PO DAILY 11/29/22 Baclofen 10 mg PO Q12HR PRN 12/16/22 Atorvastatin [Lipitor] 40 mg PO HS 05/15/23 Tirzepatide [Mounjaro] 5 mg SQ WE 05/15/23 Butalb/APAP/Caff 50-325-40Mg [Fioricet 50-325-40] 1 each PO Q4HR PRN #30 tab 05/16/23 Clopidogrel [Plavix] 75 mg PO DAILY #30 tab 05/16/23 Topiramate [Topamax] 25 mg PO BID #60 tab 05/16/23 Ubrogepant [Ubrelvy] 100 mg PO DIRECTED PRN 02/12/24 Controlled Substance Measures - Controlled Substance Measures Is patient prescribed a controlled substance at discharge?: No
== END ==
LOC: PNWHC3 08:13
PROVIDERS: ATTEND Specialist
DX: M54.16 Radiculopathy, lumbar region
CPT/HCPCS: 99211

== ENCOUNTER 2024-09-07 08:34 | Day surgery (SDC) | payer MEDICARE ==
[2024-09-07 09:22] VITALS: RESP 16; TEMP 97.6
[2024-09-07] MEDS: IV FLUID CONTINUATION 1,000 ML IV ONE (09:25)
[2024-09-07] MEDS: LACTATED RINGERS 1,000 ML IV SCH (09:25)
[2024-09-07] MEDS: LIDOCAINE 1% (10MG/ML) FOR IV START INTRADERMA ONE (09:25)
[2024-09-07 09:36] LABS: Glucose,Whole Blood 119 mg/dL (70-110)
[2024-09-07] MEDS ORDERED: methylPREDNISolone ACETATE 40 MG/ML 1 ML VIAL ONE (09:43)
[2024-09-07] MEDS ORDERED: ROPIVACAINE 5MG/ML 20ML VIAL ONE (09:43)
[2024-09-07] MEDS ORDERED: fentaNYL (PF) 50 MCG/ML 2 ML AMP ONE (09:43)
[2024-09-07] MEDS ORDERED: MIDAZOLAM 2 MG/2 ML VIAL ONE (09:43)
--- NOTE | 2024-09-07 10:14 | P.PCN ---
Date of Procedure: 09/07/24 Procedure(s) Performed: PREOPERATIVE DIAGNOSIS: 1-Lumbar Spondylosis with Facet Arthropathy without myelopathy. 2- Lumber degenerative disc disease. POSTOPERATIVE DIAGNOSIS: 1- Lumbar Spondylosis with Facet Arthropathy without myelopathy. 2- Lumber degenerative disc disease. PROCEDURES : Bilateral Radiofrequency thermocoagulation, L3,L4, L5 medial branch, with fluoroscopic guidance (fluoroscopy images available in RAD Dept ) ( to denervate the facet joint at bilateral L4-5 ,and L5-S1 levels ). ANESTHESIA: Moderate sedation with intravenous versed 2 mg and fentaneyl 100 mcg,(patient start at 09:43 ,end at 10:07 ). EBL: Minimal PROCEDURE INDICATION: The patient with low back pain secondary to lumbar facet arthropathy who had more than 50% relief of her pain with previous diagnostic lumbar medial branch block with bupivacaine. PROCEDURE DESCRIPTION / TECHNIQUE: The patient was seen and identified in the preoperative area. Risks, benefits, complications, including but not limited to risk of infection ,bleeding , allergic reactions to the medications and no complete pain releife , and alternatives were discussed with the patient, the patient agreed to proceed with the procedure and signed the consent. IV was started. Vital signs remained stable throughout the procedure. Patient was taken to the OR and time out was completed. The patient was placed in the prone position on the procedure table. The lumber area was prepped and draped in the usual sterile fashion. . Vital signs were closely monitored during the procedure .IV sedation was used during the procedure to decrease patients anxiety. Using AP and then oblique fluoroscopy, the ``eye of the Shashi dog corresponding to the connection between the superior and transverse articular processes of right L3, L4, and L5 were identified, marked, and localized with 1% lidocaine. Subsequently, a [id number] (VENOM ) radiofrequency cannula with a 10-mm active tip was advanced guided by fluoroscopy to each of the``eyes of the Shashi dog at right L3, L4, and L5. Each site then underwent sensory testing at 50 Hz and 0 to 1 volt and motor testing at 2.5 Hz and 0 to 3 volt with local stimulation, but no radicular symptoms down the legs. Thereafter each sites underwent radiofrequency thermocoagulation at 80 degrees celsius for 90 seconds after injecting 0.5 ml of PF Ropivacaine 1ml, then after the thermocoagulation done , 1 ml of the block solution containing Depo-Medrol 20 mg and 3 ml of Ropivacaine 0.5% was injected at the right L3 , L4 , and L5 , levels after negative aspiration of CSF and blood and with no paresthesias. Cannulas were retracted while injecting lidocaine 1% until the needle is out. The same procedure was repeated at the level of Left L3, L4, and L5 levels. At the end of the procedure, the skin was cleansed and bandages were applied. COMPLICATIONS: No acute complications. DISPOSITION / PLANS: The patient was placed in a supine position and transferred to the recovery area in a stable condition for observation and was discharged from the recovery room after meeting discharge criteria. Home discharge instructions given to the patient by the staff. The patient was reexamined prior to discharge. The patient will schedule a follow up in the clinic in 2-4 weeks.
[2024-09-07] MEDS: IV FLUID CONTINUATION 800 ML IV ONE (10:17)
[2024-09-07 10:40] VITALS: BP 105/62; PULSE 72
--- NOTE | 2024-09-07 13:35 | FL ---
Fluoroscopy History: SHAAN LUM RF shaan lum rf. dap [id number] fl time 15.2 secs [facility], , 09/07/2024 1:32 PM
== END 2024-09-07 10:49 | disposition home or self-care (01) ==
LOC: ORPAIN 08:34
PROVIDERS: ATTEND Specialist
DX: M47.816 Spondylosis without myelopathy or radiculopathy, lumbar region
CPT/HCPCS: 99152

== ENCOUNTER → 2024-09-22 | Outpatient (CLI) | payer MEDICARE ==
[2024-09-22 08:35] VITALS: BP 110/71; PULSE 74; RESP 16
--- NOTE | 2024-09-22 14:36 | P.PAINPG ---
PQRS Measure Charge Sheet Comment: A 74 yr old male with a history of severe and chronic LBP x 9 yrs secondary to radiculopathy, spondylosis and facet arthropathy without myelopathy presents today for evaluation s/p BL RFA L4-L5/ L5-S1. Pt states he experienced 80 % pain relief s/p procedure. Pain level is provoked at 1 /10 in intensity, pr edominantly axial, constant, achy in character without shooting pain. Pain is alleviated with injections, medications, topicals, physician guided exercises 3 times weekly x 6 yrs, heat, repositioning, injections and rest. Interventional pain procedures completed include BL RFA L3-L5 (Dec 2022, Aug 2023), BL TPIs L2-S1 x2 Patient is currently on [place] 7.5/325mg, Baclofen, Cannabis use Patient denies any side effects of the medication(s), denies excessive drowsiness or sleepiness, denies suicidal ideation and reports that the current pain medication is helping to control the pain and improve activities of daily living. Patient denies any motor or sensory deficits. Patient denies any fever or night sweats, denies any change in the bowel movements or urination. Physical Examination: -Constitutional: Cooperative. Not in acute distress . - Neurologic: Cranial nerve II to XII intact. No focal neurological deficits. - Psychatric: Alert & oriented x 3. Matching mood & appropriate affect. Ivelisse gment and insight intact. - Musculoskeletal: Cervical spine: Muscle bulk/ tone/ strength in the bilateral upper extremities normal Vertebral body tenderness to palpation over Spurling test positive Distraction test positive Facet loading test positive TTP Thoracic spine Muscle bulk / tone/ strength in the bilateral paraspinal muscles normal Vertebral body tender to palpation over Facet loading test positive TTP Lumbar spine: Motor bulk/ tone/ strength lower extremities , thigh and legs : 5/5 Deep tendon reflexes : Normal Knee Jerk. Normal Ankle Jerk . Vertebral body tenderness to palpation over Lumbar Facet Loading Test positive BL L4-L5/ L5-S1 Taut bands w twitch response over L2-S1 Straight Leg Raise: positive at 30 degrees right side/ left side Gaenslen's Test positive Sacral spine : Severe tenderness over the Sacroiliac joint: right side / left side Range of motion: Flexion of the lumbar spine <60 degrees Range of motion: Extension of the lumbar spine <20 degrees Gaenslen's Test positive right side / left side Angella test: positive right side / left side Thigh Thrust Test positive right side / left side Sacral Thrust Test positive right side / left side Assessment and plan: Chronic LBP secondary to radiculopathy, spondylosis with facet arthropathy without myelopathy Will manage residual pain and may RTC on an as needed basis. All questions answered. I have spent less than 30 minutes on patient care today. Dr Richard was available by phone for the evaluation of this patient. The time was used to review the medical records including relevant urine studies and Prescription history (MAPs), review of the available imaging, evaluation and examination of the patient, coordination of care with the medical staff and if applicable referring physicians, as well as creation of the medical record PQRS Narrative: Smoking Status Former smoker Hx Alcohol Use (MH) No Home Medications: Ambulatory Orders Multivitamins, Thera [Multivitamin (formulary)] 1 each PO DAILY 04/07/14 Aspirin [Adult Low Dose Aspirin EC] 81 mg PO DAILY 12/22/20 Tamsulosin [Flomax] 0.4 mg PO HS 12/22/20 lisinopriL [Zestril] 2.5 mg PO HS 12/22/20 Dapagliflozin Propanediol [Farxiga] 10 mg PO DAILY 11/29/22 Baclofen 10 mg PO Q12HR PRN 12/16/22 Atorvastatin [Lipitor] 40 mg PO HS 05/15/23 Tirzepatide [Mounjaro] 5 mg SQ WE 05/15/23 Butalb/APAP/Caff 50-325-40Mg [Fioricet 50-325-40] 1 each PO Q4HR PRN #30 tab 05/16/23 Topiramate [Topamax] 25 mg PO BID #60 tab 05/16/23 Ubrogepant [Ubrelvy] 100 mg PO DIRECTED PRN 02/12/24 Clopidogrel [Plavix] 75 mg PO HS 09/02/24 Controlled Substance Measures - Controlled Substance Measures Is patient prescribed a controlled substance at discharge?: No
== END ==
LOC: PNWHC3 07:51
PROVIDERS: ATTEND Specialist
DX: M54.16 Radiculopathy, lumbar region
CPT/HCPCS: 99211

== ENCOUNTER → 2024-09-24 | Outpatient (CLI) | payer MEDICARE ==
[2024-09-24 12:44] LABS: African American GFR (CKD) 74 (>60 ml/min/1.73 sqM); Blood Urea Nitrogen 16 mg/dL (9-20); Non-African American GFR(CKD) 64 (>60 ml/min/1.73 sqM)
--- NOTE | 2024-09-24 14:02 | CT ---
EXAMINATION TYPE: CT abdomen pelvis w con CT DLP: 1504 mGycm, Automated exposure control for dose reduction was used. DATE OF EXAM: 09/24/2024 1:47 PM COMPARISON: CT abdomen pelvis 01/30/2022 CLINICAL INDICATION:Male, 74 years old with history of R10.32 Left lower quadrant pain; Left lower qu adrant pain. hx of mass in lower abdomen. TECHNIQUE: Standard CT of the abdomen and pelvis following the administration of 100 cc of Isovue 3 00 IV contrast material and oral contrast. Coronal and sagittal reformats were performed. FINDINGS: LOWER CHEST: Visualized lung bases appear clear. Coronary artery calcifications. ABDOMEN LIVER: Central hepatic 1.1 cm cyst. GALLBLADDER AND BILE DUCTS: Unremarkable. PANCREAS: Unremarkable. SPLEEN: Unremarkable. 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 Left adrenal gland is unremarkable. KIDNEYS AND URETERS: Atrophic endstage appearance of the right kidney redemonstrated with multiple ca lcifications and fat density. A left renal lesion is identified. No hydronephrosis of either kidney. Contrast is demonstrated within the left collecting system on the delayed phase. PELVIS BLADDER: Unremarkable REPRODUCTIVE: Coarse calcifications of the prostate gland are identified. Prostate gland is enlarged measuring 5.9 cm in transverse dimension. There is indentation upon the urinary bladder base. ABDOMEN & PELVIS STOMACH AND BOWEL: Periampullary duodenal diverticulum.Mild right-sided colonic stool burden. Distal colonic diverticulosis without evidence for acute diverticulitis. Enteric contrast reaches the mid to distal small bowel. The appendix is within normal limits. No focal bowel wall thickening or surround ing inflammatory changes. No evidence of bowel obstruction. PERITONEUM: No evidence of pneumoperitoneum or free fluid. VASCULATURE: Mild to moderate atherosclerotic calcifications are present throughout the abdominal aor ta and its branches. No evidence of aortic aneurysm. Pelvic phleboliths. MUSCULOSKELETAL: No acute osseous abnormalities. Mild to moderate disc degeneration changes are prese nt throughout the thoracolumbar spine. Bilateral pars defects at L5-S1 with grade 1 anterolisthesis. Degenerative changes of the bilateral SI joints with anterior bridging. LYMPH NODES: No evidence for lymphadenopathy. SOFT TISSUE/ABDOMINAL WALL: Unremarkable IMPRESSION: 1. No CT evidence of acute abdominal/pelvic process. 2. 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 No suspicious soft tissue within the surgic al bed. 3. Similar atrophic endstage appearance of the right kidney. 4. Distal colonic diverticulosis without evidence for acute diverticulitis. 5. Prostatomegaly. [facility], , 09/24/2024 1:59 PM
== END | disposition home or self-care (01) ==
LOC: RADCTMAIN 11:39
PROVIDERS: ATTEND Internal Medicine
CPT/HCPCS: 36415; 74177; 82565; 84520

== ENCOUNTER → 2025-01-03 | Outpatient (CLI) | payer MEDICARE ==
[2025-01-03 11:22] VITALS: BP 100/67; PULSE 81; RESP 20; TEMP 97.5
--- NOTE | 2025-01-03 16:17 | P.PAINPG ---
PQRS Measure Charge Sheet Comment: A 74 yr old male with a history of severe and chronic LBP x 9 yrs secondary to radiculopathy, spondylosis and facet arthropathy without myelopathy presents today for evaluation. Pain level is provoked at 6 /10 in intensity, predominantly axial, constant, achy in character w shooting pain towards the R hip. Pain is alleviated with injections, medications, topicals, physician guided exercises 3 times weekly x 6 yrs, heat, repositioning, injections and rest. Interventional pain procedures completed include BL RFA L3-L5 (12/23, 09/22, 09/07/24), BL TPIs L2-S1 x2 Patient is currently on [place] 7.5/325mg, Baclofen, Cannabis use Patient denies any side effects of the medication(s), denies excessive drowsin ess or sleepiness, denies suicidal ideation and reports that the current pain medication is helping to control the pain and improve activities of daily living. Patient denies any motor or sensory deficits. Patient denies any fever or night sweats, denies any change in the bowel movements or urination. Physical Examination: -Constitutional: Cooperative. Not in acute distress . - Neurologic: Cranial nerve II to XII intact. No focal neurological deficits. - Psychatric: Alert & oriented x 3. Matching mood & appropriate affect. Judgment and insight intact. - Musculoskeletal: Cervical spine: Muscle bulk/ tone/ strength in the bilateral upper extremities normal Vertebral body tenderness to palpation over Spurling test positive Distraction test positive Facet loading test positive TTP Thoracic spine Muscle bulk / tone/ strength in the bilateral paraspinal muscles normal Vertebral body tender to palpation over Facet loading test positive TTP Lumbar spine: Motor bulk/ tone/ strength lower extremities , thigh and legs : 5/5 Deep tendon reflexes : Normal Knee Jerk. Normal Ankle Jerk . Vertebral body tenderness to palpation over Lumbar Facet Loading Test positive BL L4-L5/ L5-S1 Taut bands w twitch response over L2-S1 Straight Leg Raise: positive at 30 degrees right side/ left side Gaenslen's Test positive Sacral spine : Severe tenderness over the Sacroiliac joint: right side / left side Range of motion: Flexion of the lumbar spine <60 degrees Range of motion: Extension of the lumbar spine <20 degrees Gaenslen's Test positive right side / left side Angella test: positive right side / left side Thigh Thrust Test positive right side / left side Sacral Thrust Test positive right side / left side Assessment and plan: Chronic LBP secondary to radiculopathy, spondylosis with facet arthropathy without myelopathy Recommendation of R SI injection #1. Risks, benefits of procedure discussed and pt verbalized understanding. All questions answered. I have spent less than 30 minutes on patient care today. Dr Richard was available by phone for the evaluation of this patient. The time was used to review the medical records including relevant urine studies and Prescription history (MAPs), review of the available imaging, evaluation and examination of the patient, coordination of care with the medical staff and if applicable referring physicians, as well as creation of the medical record PQRS Narrative: Smoking Status Former smoker Hx Alcohol Use (MH) No Home Medications: Ambulatory Orders Multivitamins, Thera [Multivitamin (formulary)] 1 each PO DAILY 04/07/14 Aspirin [Adult Low Dose Aspirin EC] 81 mg PO DAILY 12/22/20 Tamsulosin [Flomax] 0.4 mg PO HS 12/22/20 lisinopriL [Zestril] 2.5 mg PO HS 12/22/20 Dapagliflozin Propanediol [Farxiga] 10 mg PO DAILY 11/29/22 Baclofen 10 mg PO Q12HR PRN 12/16/22 Atorvastatin [Lipitor] 40 mg PO HS 05/15/23 Tirzepatide [Mounjaro] 5 mg SQ WE 05/15/23 Butalb/APAP/Caff 50-325-40Mg [Fioricet 50-325-40] 1 each PO Q4HR PRN #30 tab 05/16/23 Topiramate [Topamax] 25 mg PO BID #60 tab 05/16/23 Ubrogepant [Ubrelvy] 100 mg PO DIRECTED PRN 02/12/24 Clopidogrel [Plavix] 75 mg PO HS 09/02/24 Controlled Substance Measures - Controlled Substance Measures Is patient prescribed a controlled substance at discharge?: No
== END ==
LOC: PNWHC3 10:29
PROVIDERS: ATTEND Anesthesiology
DX: M47.26 Other spondylosis with radiculopathy, lumbar region (principal); G89.29 Other chronic pain; Z87.891 Personal history of nicotine dependence; Z88.6 Allergy status to analgesic agent
CPT/HCPCS: 99211

== ENCOUNTER → 2025-03-16 | Outpatient (CLI) | payer MEDICARE ==
[2025-03-16 08:20] VITALS: BP 117/73; PULSE 78; RESP 18; TEMP 98.3
--- NOTE | 2025-03-16 09:08 | XR ---
EXAMINATION TYPE: XR lumbar spine 2 or 3V DATE OF EXAM: 03/16/2025 CLINICAL HISTORY: Radiculopathy, lumbar region TECHNIQUE: Three views of the lumbar spine are submitted. COMPARISON: CT abdomen and pelvis 09/24/2024, lumbar spine radiograph 03/13/2022, MR lumbar spine 2021 FINDINGS: There are 5 lumbar type vertebral bodies identified. No acute fracture. Grade 1 anterolisthesis of L5 on S1. Mild retrolisthesis of L2 on L3. Difficult to exclude pars defect. Vertebral body heights are within normal limits. Multilevel disc space narrowing with endplate sclerosis and anterior osteoph ytosis. Multilevel facet arthropathy lower lumbar spine. Vascular sclerosis. The overlying soft tiss ue appears unremarkable. Multiple surgical clips within the right upper quadrant. IMPRESSION: 1. No acute fracture or dislocation is seen in the lumbar spine. 2. Mild to moderate multilevel degenerative disc disease and facet arthropathy. [facility], , 03/16/2025 9:06 AM
--- NOTE | 2025-03-16 16:28 | P.PAINPG ---
PQRS Measure Charge Sheet Comment: A 75 yr old male with a history of severe and chronic LBP x 9 yrs secondary to radiculopathy, spondylosis and facet arthropathy without myelopathy presents today for evaluation. Pain level is provoked at 6 /10 in intensity, predominantly axial, constant, achy in character without shooting pain. Pain is alleviated with injections, medications, topicals, physician guided exercises 3 times weekly x 6 yrs, heat, repositioning, injections and rest. He has tried PT in the past which has provoked intractable pain. Interventional pain procedures completed include BL RFA L3-L5 (12/23, 09/22, 09/07/24), BL TPIs L2-S1 x2, R SI x1 (01/06/25) Patient is currently on [place] 7.5/325mg, Baclofen, Cannabis use Patient denies any side effects of the medication(s), denies excessive drowsiness or sleepiness, denies suicidal ideation and reports that the current pain medication is helping to control the pain and improve activities of daily living. Patient denies any motor or sensory deficits. Patient denies any fever or night sweats, denies any change in the bowel movements or urination. Physical Examination: -Constitutional: Cooperative. Not in acute distress . - Neurologic: Cranial nerve II to XII intact. No focal neurological deficits. - Psychatric: Alert & oriented x 3. Matching mood & appropriate affect. Judgment and insight intact. - Musculoskeletal: Cervical spine: Muscle bulk/ tone/ strength in the bilateral upper extremities normal Vertebral body tenderness to palpation over Spurling test positive Distraction test positive Facet loading test positive TTP Thoracic spine Muscle bulk / tone/ strength in the bilateral paraspinal muscles normal Vertebral body tender to palpation over Facet loading test positive TTP Lumbar spine: Motor bulk/ tone/ strength lower extremities , thigh and legs : 5/5 Deep tendon reflexes : Normal Knee Jerk. Normal Ankle Jerk . Vertebral body tenderness to palpation over Lumbar Facet Loading Test positive BL L4-L5/ L5-S1 Taut bands w twitch response over L2-S1 Straight Leg Raise: positive at 30 degrees right side/ left side Gaenslen's Test positive Sacral spine : Severe tenderness over the Sacroiliac joint: right side / left side Range of motion: Flexion of the lumbar spine <60 degrees Range of motion: Extension of the lumbar spine <20 degrees Gaenslen's Test positive right side / left side Angella test: positive right side / left side Thigh Thrust Test positive right side / left side Sacral Thrust Test positive right side / left side Imaging: MRI non contrast lumbar spine from Jul 2022 reviewed Assessment and plan: Chronic LBP secondary to radiculopathy, spondylosis with facet arthropathy without myelopathy Recommendation of lumbar x ray M54.16. All questions answered. I have spent less than 30 minutes on patient care today. Dr Richard was available by phone for the evaluation of this patient. The time was used to review the medical records including relevant urine studies and Prescription history (MAPs), review of the available imaging, evaluation and examination of the patient, coordination of care with the medical staff and if applicable referring physicians, as well as creation of the medical record PQRS Narrative: Smoking Status Former smoker Hx Alcohol Use (MH) No Home Medications: Ambulatory Orders Multivitamins, Thera [Multivitamin (formulary)] 1 each PO DAILY 04/07/14 Aspirin [Adult Low Dose Aspirin EC] 81 mg PO DAILY 12/22/20 Tamsulosin [Flomax] 0.4 mg PO HS 12/22/20 lisinopriL [Zestril] 2.5 mg PO HS 12/22/20 Dapagliflozin Propanediol [Farxiga] 10 mg PO DAILY 11/29/22 Baclofen 10 mg PO Q12HR PRN 12/16/22 Atorvastatin [Lipitor] 40 mg PO HS 05/15/23 Tirzepatide [Mounjaro] 5 mg SQ WE 05/15/23 Butalb/APAP/Caff 50-325-40Mg [Fioricet 50-325-40] 1 each PO Q4HR PRN #30 tab 05/16/23 Topiramate [Topamax] 25 mg PO BID #60 tab 05/16/23 Controlled Substance Measures - Controlled Substance Measures Is patient prescribed a controlled substance at discharge?: No
== END ==
LOC: PNWHC3 07:47
PROVIDERS: ATTEND Pain Medicine Interventional Pain Medicine
DX: M47.26 Other spondylosis with radiculopathy, lumbar region (principal); M51.16 Intervertebral disc disorders with radiculopathy, lumbar region; G89.29 Other chronic pain; Z87.891 Personal history of nicotine dependence; Z88.5 Allergy status to narcotic agent
CPT/HCPCS: 72100; 99212

== ENCOUNTER → 2025-03-18 | Outpatient (CLI) | payer MEDICARE ==
--- NOTE | 2025-03-18 17:00 | MR ---
EXAMINATION TYPE: MR lumbar spine wo con DATE OF EXAM: 03/18/2025 4:55 PM COMPARISON: None. CLINICAL INDICATION: Male, 75 years old with history of M54.16 RADICULOPATHY, LUMBAR REGION, Low back pain, lumbar radiculopathy IV Contrast: cc (None if empty) TECHNIQUE: Multiplanar, multisequence images of the lumbar spine were acquired without IV contrast. L1-L2: Severe degenerative disc space narrowing with disc desiccation and degenerative endplate marro w change. There is mild posterior disc bulge. No evidence for disc herniation or protrusion. No centr al stenosis. Visualized neural foramina are patent bilaterally. L2-L3:Mild disc desiccation noted. No herniation, protrusion or disc bulging. No canal stenosis is p resent. Foramina are patent bilaterally. L3-L4: Mild disc desiccation noted. No herniation, protrusion or disc bulging. No canal stenosis is present. Foramina are patent bilaterally. L4-L5: Mild disc desiccation noted. No herniation, protrusion or disc bulging. No canal stenosis is present. Foramina are patent bilaterally. L5-S1: Mild disc desiccation noted. No herniation, protrusion or disc bulging. No canal stenosis is present. Foramina are patent bilaterally. Lumbar segments are intact. No paraspinal masses are identified. Conus medullaris has a normal appe arance. Scattered ventral spondylosis. Atrophic right kidney. IMPRESSION: Mild multilevel degenerative disc disease with posterior disc bulge greatest at L1-2. No evidence for disc herniation or central stenosis. [facility], , 03/18/2025 4:58 PM
== END | disposition home or self-care (01) ==
LOC: RADMRIMAIN 15:54
PROVIDERS: ATTEND Specialist
DX: M51.16 Intervertebral disc disorders with radiculopathy, lumbar region (principal)
CPT/HCPCS: 72148

== ENCOUNTER → 2025-04-11 | Outpatient (CLI) | payer MEDICARE ==
[2025-04-11 14:16] VITALS: BP 129/69; PULSE 94; TEMP 97.8
--- NOTE | 2025-04-11 16:12 | P.PAINPG ---
PQRS Measure Charge Sheet Comment: A 75 yr old male with a history of severe and chronic LBP x 9 yrs secondary to L1-L2 radiculopathy, spondylosis and facet arthropathy without myelopathy presents today for evaluation. Pt underwent a R SI injection on 01/06/25 where he experienced 90% pain relief x 3 mo s/p procedure. Pain level is provoked at 7 /10 in intensity, predominantly axial, constant, achy in character w shooting pain down the RLE. Pain is alleviated with injections, medications, topicals, physician guided exercises 3 times weekly x 6 yrs, heat, repositioning, injections and rest. He has tried PT in the past which has provoked intractable pain. Interventional pain procedures completed include BL RFA L3-L5 (12/23, 09/22, 09/07/24), BL TPIs L2-S1 x2, R SI x1 (01/06/25) Patient is currently on [place] 7.5/325mg, Baclofen, Cannabis use Patient denies any side effects of the medication(s), denies excessive drowsiness or sleepiness, denies suicidal ideation and reports that the current pain medication is helping to control the pain and improve activities of daily living. Patient denies any motor or sensory deficits. Patient denies any fever or night sweats, denies any change in the bowel movements or urination. Physical Examination: -Constitutional: Cooperative. Not in acute distress . - Neurologic: Cranial nerve II to XII intact. No focal neurological deficits. - Psychatric: Alert & oriented x 3. Matching mood & appropriate affect. Judgment and insight intact. - Musculoskeletal: Cervical spine: Muscle bulk/ tone/ strength in the bilateral upper extremities normal Vertebral body tenderness to palpation over Spurling test positive Distraction test positive Facet loading test positive TTP Thoracic spine Muscle bulk / tone/ strength in the bilateral paraspinal muscles normal Vertebral body tender to palpation over Facet loading test positive TTP Lumbar spine: Motor bulk/ tone/ strength lower extremities , thigh and legs : 5/5 Deep tendon reflexes : Normal Knee Jerk. Normal Ankle Jerk . Vertebral body tenderness to palpation over Lumbar Facet Loading Test positive BL L4-L5/ L5-S1 Taut bands w twitch response over L2-S1 Straight Leg Raise: positive at 30 degrees right side/ left side Gaenslen's Test positive Sacral spine : Severe tenderness over the Sacroiliac joint: right side / left side Range of motion: Flexion of the lumbar spine <60 degrees Range of motion: Extension of the lumbar spine <20 degrees Gaenslen's Test positive right side / left side Angella test: positive right side / left side Thigh Thrust Test positive right side / left side Sacral Thrust Test positive right side / left side Imaging: MRI non contrast lumbar spine from 03/18/25 reviewed Assessment and plan: Chronic LBP secondary to L1-L2 radiculopathy, spondylosis with facet arthropathy without myelopathy Recommendation of R SI #2. Risks, benefits of procedure discussed and pt verbalized understanding. All questions answered. I have spent less than 30 minutes on patient care today. Dr Richard was available by phone for the evaluation of this patient. The time was used to re view the medical records including relevant urine studies and Prescription history (MAPs), review of the available imaging, evaluation and examination of the patient, coordination of care with the medical staff and if applicable referring physicians, as well as creation of the medical record - Pain Location Bilateral Lower Back Non-Pharmacological Interventions: Heat, Inactivity, Position/Reposition Pharmacological Interventions: Epidural PQRS Narrative: Smoking Status Former smoker Hx Alcohol Use (MH) No Home Medications: Ambulatory Orders Multivitamins, Thera [Multivitamin (formulary)] 1 each PO DAILY 04/07/14 Aspirin [Adult Low Dose Aspirin EC] 81 mg PO DAILY 12/22/20 Tamsulosin [Flomax] 0.4 mg PO HS 12/22/20 lisinopriL [Zestril] 2.5 mg PO HS 12/22/20 Dapagliflozin Propanediol [Farxiga] 10 mg PO DAILY 11/29/22 Baclofen 10 mg PO Q12HR PRN 12/16/22 Atorvastatin [Lipitor] 40 mg PO HS 05/15/23 Tirzepatide [Mounjaro] 5 mg SQ WE 05/15/23 Butalb/APAP/Caff 50-325-40Mg [Fioricet 50-325-40] 1 each PO Q4HR PRN #30 tab 05/16/23 Topiramate [Topamax] 25 mg PO BID #60 tab 05/16/23 Clopidogrel [Plavix] 75 mg PO DAILY 04/11/25 Rimegepant Sulfate [Nurtec Odt] 75 mg PO 04/11/25 Controlled Substance Measures - Controlled Substance Measures Is patient prescribed a controlled substance at discharge?: No
== END ==
LOC: PNWHC3 13:44
PROVIDERS: ATTEND Specialist
DX: M47.26 Other spondylosis with radiculopathy, lumbar region (principal); G89.29 Other chronic pain; Z88.5 Allergy status to narcotic agent; Z87.891 Personal history of nicotine dependence
CPT/HCPCS: 99211

== ENCOUNTER 2025-04-15 08:55 | Day surgery (SDC) | payer MEDICARE ==
[2025-04-15 11:03] VITALS: TEMP 98
[2025-04-15 11:08] LABS: Glucose,Whole Blood 96 mg/dL (70-110)
[2025-04-15] MEDS ORDERED: LACTATED RINGERS 1,000 ML IV SCH (11:15)
[2025-04-15] MEDS ORDERED: TRIAMCINOLONE ACETONIDE 40 MG/ML 1 ML VIAL ONE (11:22)
[2025-04-15] MEDS ORDERED: IOPAMIDOL M200 10 ML VIAL ONE (11:22)
[2025-04-15 11:47] VITALS: RESP 16
[2025-04-15 11:50] VITALS: BP 106/60; PULSE 63
--- NOTE | 2025-04-15 12:42 | P.PCN ---
Date of Procedure: 04/15/25 Description of Procedure: Procedure: Right sacroiliac Joint injection under biplanar fluoroscopy Right side sacroiliac joint arthrogram Surgeon: Yamel Garcia Anesthesia: Local: 1% Lidocaine, IV sedation: None. Complications: none EBL : None Specimen removed: None Fluoroscopic image: Saved to patient electronic medical records. Indications for Procedure: The patient is well known to our pain clinic. Failed with the conservative pain management therapy. So scheduled for bilateral sacroiliac joint injection with fluoroscopic guidance. Procedure and Findings: The patient was seen and examined in the holding area. The written informed consent was obtained after explaining the risks, benefits and alternatives of the procedure to the patient. The patient was brought to the procedure room and was placed in the prone position on the operating room table. A pillow was placed under the lower abdomen. The anesthesia was started as mentioned above and monitoring was done with noninvasive blood pressure cuff, EKG and pulse oximetry. The skin preparation was done with ChloraPrep, and draping was done in usual sterile fashion. Sterile technique was observed throughout the procedure. AP and little oblique fluoroscopic views of the sacral spine and pelvis were obtained to identify the right sacroiliac joint. About one cm above the inferior margin of the right sacroiliac joint was marked for needle entry. 2 mL ml of 1% Lidocaine was injected with a 25 gauge needle to achieve adequate local anesthesia of the skin and subcutaneous tissue. A 25 gauge 3.5 inch spinal needle was introduced and advanced into the target area under direct fluoroscopic guidance. A contact was felt and the needle was advanced little further. No parathesia was noted. A negative aspiration was confirmed and then 0.5 ml Isovue was injected. A good dye spread was seen along the joint space. A total of 3 mL ml solution containing Kenalog 40 mg and 2 ml of 1% preservative-free lidocaine was injected slowly. The needles were removed intact. Area was cleaned and bandages were applied. Disposition : The patient tolerated the procedure very well. The patient was transferred to the recovery room and remained stable until discharged home. The patient was given detailed discharge instructions for infection, bleeding, and increased pain at the injection site, and was advised to seek immediate medical attention should significant side effects develop. The patient will be followed up with our Pain Clinic within 2 weeks for a repeat procedure if the procedure helpful.
--- NOTE | 2025-04-15 14:49 | FL ---
EXAMINATION TYPE: FL guided pain mgmt statistic DATE OF EXAM: 04/15/2025 FLUOROSCOPY R SI JOINT INJECTION, 2SEC FL TIME, [id number]. 1 images submitted. [facility], Workstation: [email or web address], 04/15/2025 2:46 PM
== END 2025-04-15 11:57 | disposition home or self-care (01) ==
LOC: ORPAIN 08:55
DX: M46.1 Sacroiliitis, not elsewhere classified (principal); Z79.82 Long term (current) use of aspirin; Z79.02 Long term (current) use of antithrombotics/antiplatelets; Z88.8 Allergy status to other drugs, medicaments and biological substances
CPT/HCPCS: 27096; G0260; J3301; Q9966

== ENCOUNTER → 2025-05-09 | Outpatient (CLI) | payer MEDICARE ==
[2025-05-09 13:15] VITALS: BP 74/54; PULSE 120; RESP 18
--- NOTE | 2025-05-11 07:33 | P.PAINPG ---
Objective - Vital Signs Vital signs: Intake & Output 05/08/25 05/09/25 05/09/25 18:59 06:59 18:59 Weight 68.039 kg PQRS Measure Charge Sheet Comment: A 75 yr old male with a history of severe and chronic LBP x 9 yrs secondary to L1-L2 radiculopathy, spondylosis and facet arthropathy without myelopathy presents today for evaluation s/p R SI injection. Pt states he experienced 70% pain relief x 3 wk s/p procedure. Pain level is provoked at 2 /10 in intensity, predominantly axial, constant, achy in character w shooting pain down the RLE. Pain is alleviated with injections, medications, topicals, physician guided exercises 3 times weekly x 6 yrs, heat, repositioning, injections and rest. He has tried PT in the past which has provoked intractable pain. Interventional pain procedures completed include BL RFA L3-L5 (12/23, 09/22, 09/07/24), BL TPIs L2-S1 x2, R SI x2 (01/25, 04/15/25) Patient is currently on [place] 7.5/325mg, Baclofen, Cannabis use Patient denies any side effects of the medication(s), denies excessive drowsiness or sleepiness, denies suicidal ideation and reports that the current pain medication is helping to control the pain and improve activities of daily living. Patient denies any motor or sensory deficits. Patient denies any fever or night sweats, denies any change in the bowel movements or urination. Physical Examination: -Constitutional: Cooperative. Not in acute distress . - Neurologic: Cranial nerve II to XII intact. No focal neurological deficits. - Psychatric: Alert & oriented x 3. Matching mood & appropriate affect. Judgment and insight intact. - Musculoskeletal: Cervical spine: Muscle bulk/ tone/ strength in the bilateral upper extremities normal Vertebral body tenderness to palpation over Spurling test positive Distraction test positive Facet loading test positive TTP Thoracic spine Muscle bulk / tone/ strength in the bilateral paraspinal muscles normal Vertebral body tender to palpation over Facet loading test positive TTP Lumbar spine: Motor bulk/ tone/ strength lower extremities , thigh and legs : 5/5 Deep tendon reflexes : Normal Knee Jerk. Normal Ankle Jerk . Vertebral body tenderness to palpation over Lumbar Facet Loading Test positive BL L4-L5/ L5-S1 Taut bands w twitch response over L2-S1 Straight Leg Raise: positive at 30 degrees right side/ left side Gaenslen's Test positive Sacral spine : Severe tenderness over the Sacroiliac joint: right side / left side Range of motion: Flexion of the lumbar spine <60 degrees Range of motion: Extension of the lumbar spine <20 degrees Gaenslen's Test positive right side / left side Angella test: positive right side / left side Thigh Thrust Test positive right side / left side Sacral Thrust Test positive right side / left side Imaging: MRI non contrast lumbar spine from 03/18/25 reviewed Assessment and plan: Chronic LBP secondary to L1-L2 radiculopathy, spondylosis with facet arthropathy without myelopathy Will manage residual pain and may RTC on an as needed basis. All questions answered. I have spent less than 30 minutes on patient care today. Dr Richard was available by phone for the evaluation of this patient. The time was used to review the medical records including relevant urine studies and Prescription history (MAPs), review of the available imaging, evaluation and examination of the patient, coordination of care with the medical staff and if applicable referring physicians, as well as creation of the medical record PQRS Narrative: Smoking Status Former smoker Hx Alcohol Use (MH) No Home Medications: Ambulatory Orders Multivitamins, Thera [Multivitamin (formulary)] 1 each PO DAILY 04/07/14 Aspirin [Adult Low Dose Aspirin EC] 81 mg PO DAILY 12/22/20 Tamsulosin [Flomax] 0.4 mg PO HS 12/22/20 lisinopriL [Zestril] 2.5 mg PO HS 12/22/20 Dapagliflozin Propanediol [Farxiga] 10 mg PO DAILY 11/29/22 Atorvastatin [Lipitor] 40 mg PO HS 05/15/23 Tirzepatide [Mounjaro] 5 mg SQ WE 05/15/23 Topiramate [Topamax] 25 mg PO BID #60 tab 05/16/23 Clopidogrel [Plavix] 75 mg PO DAILY 04/11/25 Rimegepant Sulfate [Nurtec Odt] 75 mg PO 04/11/25 Controlled Substance Measures - Controlled Substance Measures Is patient prescribed a controlled substance at discharge?: No
== END ==
LOC: PNWHC3 12:49
PROVIDERS: ATTEND Specialist
DX: M47.26 Other spondylosis with radiculopathy, lumbar region (principal); M46.1 Sacroiliitis, not elsewhere classified; M71.38 Other bursal cyst, other site; Z88.5 Allergy status to narcotic agent; Z87.891 Personal history of nicotine dependence
CPT/HCPCS: 99212

== ENCOUNTER → 2025-05-25 | Outpatient (CLI) | payer MEDICARE ==
--- NOTE | 2025-05-25 08:00 | US ---
EXAMINATION TYPE: US carotid duplex BILAT DATE OF EXAM: 05/25/2025 COMPARISON: 05/15/2023 CLINICAL INDICATION: Male, 75 years old with history of G45.9 TIA; Additional History: .... TECHNIQUE: Grayscale, color Doppler and spectral Doppler evaluation of the bilateral carotid systems and vertebral arteries. Indirect Doppler criteria was utilized. FINDINGS: EXAM MEASUREMENTS: RIGHT: Peak Systolic Velocity (PSV) cm/sec ----- Right CCA: 75.6 ----- Right ICA: 78.2 ----- Right ECA: 88.6 ICA/CCA ratio: 1.1 RIGHT: End Diastole cm/sec ----- Right CCA: 10.1 ----- Right ICA: 17.1 ----- Right ECA: 8.4 LEFT: Peak Systolic Velocity (PSV) cm/sec ----- Left CCA: 74.7 ----- Left ICA: 95.2 ----- Left ECA: 95.2 ICA/CCA ratio: 1.3 LEFT: End Diastole cm/sec ----- Left CCA: 12.7 ----- Left ICA: 28.1 ----- Left ECA: 9.5 VERTEBRALS (direction of flow): Right Vertebral: Antegrade Left Vertebral: Antegrade Rhythm: Normal REAL ESTATE SALES AGENT NOTES: no elevated velocities, plaque or significant stenosis seen bilaterally Color Doppler imaging shows patency with blood flow throughout the carotid artery. Spectral waveforms are within normal limits. IMPRESSION: 1. Atheromatous plaquing without significant flow-limiting stenosis based on velocities Criteria for Assigning % of Stenosis / Diameter reduction (Estimation based on the indirect measurements of the internal carotid artery velocities (ICA PSV). 1. Normal (no stenosis)=ICA PSV < 180 cm/s: ratio < 2.0: ICA EDV<40 cm/s. 2. Less than 50% stenosis=ICA PSV < 180 cm/s: ratio < 2.0: ICA EDV<40 cm/s. 3. 50 to 69% stenosis=ICA PSV of 180 to 230 cm/s: ration 2.0 ? 4.0: ICA EDV 40-100 cm/s. PSV 125-180 cm/sec and ICA/CCA PSV Ratio ? 2.0 is also consistent with 50-69% stenosis 4. Greater than 70% stenosis to near occlusion= ICA PSV > 230 cm/s: ratio > 4.0: ICA EDV > 100 cm/s. 5. Near occlusion= ICA PSV velocities may be low or undetectable: variable ratio and ICA EDV. 6. Total occlusion=unable to detect flow. [facility], , 05/25/2025 7:58 AM
--- NOTE | 2025-05-25 10:41 | CA ---
Transthoracic Echo Report Name: Mario Lowery Age: 75 Gender: M : 1950 Exam Date: 05/25/2025 08:19 Exam Location: [facility] Ht (in): 68 Wt (lb): 151 Ordering Physician: Jay Sam MD Attending/Referring Phys: Jay Sam MD Material Mover Pam Zimmerman RDCS Procedure CPT: Indications: G45.9 TIA Cardiac Hx: Technical Quality: Good Contrast 1: Total Dose (mL): Contrast 2: Total Dose (mL): MEASUREMENTS (Male / Female) Normal Values 2D ECHO LV Diastolic Diameter PLAX 4.7 cm 4.2 - 5.9 / 3.9 - 5.3 cm LV Systolic Diameter PLAX 3.3 cm IVS Diastolic Thickness 1.0 cm 0.6 - 1.0 / 0.6 - 0.9 cm LVPW Diastolic Thickness 1.0 cm 0.6 - 1.0 / 0.6 - 0.9 cm LV Relative Wall Thickness 0.4 RV Internal Dim ED PLAX 2.2 cm LVOT Diameter 2.2 cm LA Systolic Diameter LX 3.3 cm 3.0 - 4.0 / 2.7 - 3.8 cm LV Diastolic Volume MOD BP 70.7 cm??? 67 - 155 / 56 - 104 cm??? LV Systolic Volume MOD BP 26.5 cm??? 22 - 58 / 19 - 49 cm??? LV Ejection Fraction MOD BP 62.5 % >= 55 % LV Cardiac Index MOD BP 1899.1 cm???/min???m??? LV Diastolic Volume MOD 4C 68.6 cm??? LV Systolic Volume MOD 4C 27.5 cm??? LV Ejection Fraction MOD 4C 59.9 % LV Cardiac Index MOD 4C 1766.1 cm???/min???m??? LV Diastolic Length 4C 6.6 cm LV Systolic Length 4C 6.0 cm LV Diastolic Volume MOD 2C 70.2 cm??? LV Systolic Volume MOD 2C 24.1 cm??? LV Ejection Fraction MOD 2C 65.7 % LV Cardiac Index MOD 2C 1979.6 cm???/min???m??? LV Diastolic Length 2C 6.9 cm LV Systolic Length 2C 5.6 cm LA Volume 35.7 cm??? 18 - 58 / 22 - 52 cm??? LA Volume Index 19.7 cm???/m??? 16 - 28 cm???/m??? M-MODE Aortic Root Diameter MM 3.2 cm LA Systolic Diameter MM 3.7 cm LA Ao Ratio MM 1.2 AV Cusp Separation MM 1.9 cm DOPPLER MV Area PHT 2.8 cm??? Mitral E Point Velocity 73.3 cm/s Mitral A Point Velocity 59.3 cm/s Mitral E to A Ratio 1.2 MV Deceleration Time 273.9 ms TR Peak Velocity 210.9 cm/s TR Peak Gradient 17.8 mmHg FINDINGS Left Ventricle Left ventricular ejection fraction is estimated at 55-60 %. Normal left ventricular systolic function with no obvious regional wall motion abnormalities. Left ventricular cavity size normal. Left ventricular wall thickness normal. Right Ventricle Normal right ventricular size and function. Right ventricular systolic pressure within normal limits. Right Atrium Normal right atrial size. Left Atrium Normal left atrial size. Mitral Valve Mitral valve thickened. Mild prolapse of the posterior mitral valve leaflet. Nrvo-oc-ocniuvxw mitral regurgitation. No mitral stenosis. Aortic Valve Trileaflet aortic valve. No aortic valve stenosis or regurgitation. Tricuspid Valve Structurally normal tricuspid valve. Mild tricuspid regurgitation. No tricuspid stenosis. Pulmonic Valve Structurally normal pulmonic valve. Trace pulmonic regurgitation. No pulmonic stenosis. Pericardium No pericardial or pleural effusion. Aorta Normal size aortic root and proximal ascending aorta. CONCLUSIONS Normal LV size and systolic function. Mild prolapse of posterior mitral leaflet with mild to moderate mitral regurgitation mild tricuspid regurgitation. No pericardial effusion. No pulmonary hypertension Previewed by: Dr. Kamran Melgoza MD (Electronically Signed) Final Date: 25 May 2025 10:40
== END | disposition home or self-care (01) ==
LOC: RADUSWWP 07:12
PROVIDERS: ATTEND Internal Medicine
DX: I65.23 Occlusion and stenosis of bilateral carotid arteries (principal); I08.1 Rheumatic disorders of both mitral and tricuspid valves
CPT/HCPCS: 93306; 93880

== ENCOUNTER 2025-06-20 15:33 | Emergency (ER) | payer MEDICARE ==
[2025-06-20 15:39] VITALS: TEMP 98.1
--- NOTE | 2025-06-20 15:56 | ED ---
General Adult HPI - General Chief complaint: Altered Mental Status Stated complaint: Confusion/sent by doc Time Seen by Provider: 06/20/25 15:40 Source: patient Mode of arrival: ambulatory Limitations: altered mental status - History of Present Illness Initial comments: Dictation was produced using [employer] dictation software. please excuse any grammatical, word or spelling errors. Chief Complaint: 75-year-old male presents emergency department PCPs office for low blood pressure History of Present Illness: Patient is 75-year-old male who is seen at primary care physician's office for low blood pressure. at the bedside helps provide history present illness. Patient allegedly over the last several months has had these few and far between episodes where he for 30 seconds gets a little shaky and confused. Seems to be confused to the sense where he does not know where he is or what he is doing. Generally has these episodes once every sev eral months. They went to see the primary care doctor because he had 2 episodes within 3 to 4 days. Was seen at the primary care physician's office and he had a blood pressure that was low. He was told to come to the ER for IV fluids and testing. Patient states he feels fatigued however denies any focal symptoms. The ROS documented in this emergency department record has been reviewed and co nfirmed by me. Those systems with pertinent positive or negative responses have been documented in the HPI. All other systems are other negative and/or noncontributory. - Related Data Home Medications Medication Instructions Recorded Confirmed Multivitamins, Thera [Multivitamin 1 tab PO DAILY 04/07/14 06/20/25 (formulary)] Aspirin [Adult Low Dose Aspirin EC] 81 mg PO DAILY 12/22/20 06/20/25 Tamsulosin [Flomax] 0.4 mg PO HS 12/22/20 06/20/25 Dapagliflozin Propanediol [Farxiga] 10 mg PO DAILY 11/29/22 06/20/25 Atorvastatin [Lipitor] 40 mg PO HS 05/15/23 06/20/25 Clopidogrel [Plavix] 75 mg PO HS 04/11/25 06/20/25 Rimegepant Sulfate [Nurtec Odt] 75 mg PO DAILY 04/11/25 06/20/25 Cyanocobalamin [Vitamin B-12 1,000 mcg SQ QMONTHLY 06/20/25 06/20/25 Injection] Tirzepatide [Mounjaro] 7.5 mg SQ WE 06/20/25 06/20/25 Previous Rx's Medication Instructions Recorded Topiramate [Topamax] 25 mg PO BID #60 tab 05/16/23 Allergies Allergy/AdvReac Type Severity Reaction Status Date / Time hydromorphone HCl Allergy Nausea & Verified 06/20/25 16:39 [From Dilaudid] Vomiting Review of Systems ROS Statement: Those systems with pertinent positive or pertinent negative responses have been documented in the HPI. ROS Other: All systems not noted in ROS Statement are negative. Past Medical History Past Medical History: Diabetes Mellitus, Hyperlipidemia, Hypertension, Osteoarthritis (OA), Prostate Disorder Additional Past Medical History / Comment(s): has had "4 events with stroke like symptoms" couple of years ago, has one kidney r/t benign tumor, arthritis lower back. 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 throat cancer General Exam - General Exam Comments Initial Comments: PHYSICAL EXAM: General Impression: Alert and oriented x3, not in acute distress HEENT: Normocephalic atraumatic, extra-ocular movements intact, pupils equal and reactive to light bilaterally, mucous membranes moist. Cardiovascular: Heart regular rate and rhythm Chest: Able to complete full sentences, no retractions, no tachypnea Abdomen: abdomen soft, non-tender, non-distended, no organomegaly Musculoskeletal: Pulses present and equal in all extremities, no peripheral edema Motor: no focal deficits noted Neurological: CN II-XII grossly intact, no focal motor or sensory deficits noted Skin: Intact with no visualized rashes Psych: Normal affect and mood Limitations: altered mental status Course Vital Signs 06/20/25 06/20/25 06/20/25 15:35 17:53 17:57 Temperature 98.1 F Pulse Rate 82 82 Pulse Rate [ 86 Sitting Assistant City Attorney] Pulse Rate [ 80 Standing Assistant City Attorney ] Pulse Rate [ 68 Supine Assistant City Attorney] Respiratory 18 20 Rate Blood Pressure 97/67 115/68 Blood Pressure 103/65 [Left Arm Sitting] Blood Pressure 104/60 [Left Arm Standing] Blood Pressure 114/67 [Left Arm Supine] O2 Sat by Pulse 99 98 Oximetry EKG Findings - EKG Comments: EKG Findings:: My EKG interpretation: Ventricular rate 64, sinus rhythm, LA interval 186, cures 105, QTc 382. No LA prolongation, no QTC prolongation, no ST or T-wave changes noted. Overall, this EKG is unremarkable Medical Decision Making - Medical Decision Making Was pt. sent in by a medical professional or institution (, PA, DIE REPAIRER FORGING, urgent care, hospital, or jail...) When possible be specific @ -No Did you speak to anyone other than the patient for history (EMS, parent, family, police, friend...)? What history was obtained from this source @ -No Did you review nursing and triage notes (agree or disagree)? Why? @ -I reviewed and agree with nursing and triage notes Were old charts reviewed (outside hosp., previous admission, EMS record, old EKG, old radiological studies, urgent care reports/EKG's, jail records)? Report findings @ -No old charts were reviewed Differential Diagnosis (chest pain, altered mental status, abdominal pain women, abdominal pain men, vaginal bleeding, musculoskeletal, weakness, fever, dyspnea, syncope, headache, dizziness, GI bleed, back pain, seizure, CVA, palpatations, mental health)? @ -Differential Dizziness: Benign paroxysmal positional Vertigo, Meniere's disease, otitis media, acoustic neuroma, vertebrobasilar insufficiency, cerebellar stroke, encephalitis, hypovolemic, arrhythmia, coronary artery syndrome, anemia, this is not meant to be an all-inclusive list EKG interpreted by me (3pts min.). @ -See above X-rays interpreted by me (1pt min.). @ -None done CT interpreted by me (1pt min.). @ -CT brain shows no acute processes U/S interpreted by me (1pt. min.). @ -None done What testing was considered but not performed or refused? (CT, X-rays, U/S, labs)? Why? @ -None What meds were considered but not given or refused? Why? @ -None Was smoking cessation discussed for >3mins.? @ -No Were there social determinants of health that impacted care today? How? (Homelessness, low income, unemployed, alcoholism, drug addiction, transportation, low edu. Level, literacy, decrease access to med. care, senior care, rehab)? @ -No Was there de-escalation of care discussed even if they declined (Discuss DNR or withdrawal of care, Hospice)? DNR status @ -No What co-morbidities impacted this encounter? (DM, HTN, Smoking, COPD, CAD, Cancer, CVA, ARF, Chemo, Hep., AIDS, mental health diagnosis, sleep apnea, morbid obesity)? @ -None Was patient admitted / discharged? Hospital course, mention meds given and route, prescriptions, significant lab abnormalities, going to OR and other pertinent info. @ -75-year-old male sent to the emergency department from primary care physician's office for hypotension. Patient also had some confusion. Vital signs upon arrival showed findings within acceptable limits. Given IV fluids. Orthostatic measurements are within normal limits. Labs are unremarkable. CT brain is negative. Patient reevaluated bedside 6:34 PM found to be in stable medical edition he is feeling well and wants to be discharged. Case was discussed with his primary care, Dr. Sam who is agreeable with plan will follow-up with him in the office Did you discuss the management of the patient with other professionals (professionals i.e. , PA, DIE REPAIRER FORGING, lab, RT, psych nurse, social security assessor, cullet crusher, teacher, foreign policy officer, telephonic nurse case manager)? Give summary @ -see above Was critical care preformed (if so, how long)? @ -No Undiagnosed new problem with uncertain prognosis? @ -No Drug Therapy requiring intensive monitoring for toxicity (Heparin, Nitro, Insulin, Cardizem)? @ -No Were any procedures done? @ -No Diagnosis/symptom? Acute, or Chronic, or Acute on Chronic? Uncomplicated (wi thout systemic symptoms) or Complicated (systemic symptoms)? @ -Dizziness, dehydration. No high risk features Side effects of treatment? @ -No Exacerbation, Progression, or Severe Exacerbation? @ -No Poses a threat to life or bodily function? How? (Chest pain, USA, LA, pneumonia, PE, COPD, DKA, ARF, appy, cholecystitis, CVA, Diverticulitis, Homicidal, Suicidal, threat to staff... and all critical care pts) @ -yes - Lab Data Result diagrams: 06/20/25 16:11 06/20/25 16:11 Lab Results 06/20/25 06/20/25 06/20/25 Range/Units 16:11 16:11 16:11 WBC 4.82 (4.50-10.00) 10*3/uL RBC 4.77 (4.40-5.60) 10*6/uL Hgb 15.3 (13.0-17.0) g/dL Hct 43.7 (39.6-50.0) % MCV 91.6 (80.0-97.0) fL MCH 32.1 H (27.0-32.0) pg MCHC 35.0 (32.0-37.0) g/dL Plt Count 227 (140-440) 10*3/uL MPV 9.2 L (9.5-12.2) fL Immature Gran % (Auto) 0.4 % Neutrophils % 66.3 % Lymphocytes % 18.0 % Monocytes % 13.3 % Eosinophils % 1.2 % Basophils % 0.8 % Immature Gran # 0.02 (0.00-0.04) 10*3/uL Neutrophils # 3.19 (1.80-7.70) 10*3/uL Lymphocytes # 0.87 L (0.90-5.00) 10*3/uL Monocytes # 0.64 (0.20-1.00) 10*3/uL Eosinophils # 0.06 (0.04-0.35) 10*3/uL Basophils # 0.04 (0.00-0.10) 10*3/uL Sodium 136 L (137-145) mmol/L Potassium 4.1 (3.5-5.1) mmol/L Chloride 104 (98-107) mmol/L Carbon Dioxide 23 (22-30) mmol/L Anion Gap 9 mmol/L BUN 11 (9-20) mg/dL Creatinine 0.99 (0.66-1.25) mg/dL Est GFR (CKD-EPI)AfAm 85 (>60 ml/min/1.73 sqM) Est GFR (CKD-EPI)NonAf 74 (>60 ml/min/1.73 sqM) Glucose 92 (74-99) mg/dL Plasma Lactic Acid Vince 0.9 (0.7-2.0) mmol/L Calcium 9.3 (8.4-10.2) mg/dL Magnesium 2.1 (1.6-2.3) mg/dL Total Bilirubin 1.2 (0.2-1.3) mg/dL AST 19 (17-59) U/L ALT 14 (4-49) U/L Alkaline Phosphatase 92 (38-126) U/L Troponin I (0.000-0.034) ng/mL Total Protein 6.0 L (6.3-8.2) g/dL Albumin 3.9 (3.5-5.0) g/dL 06/20/25 Range/Units 16:11 WBC (4.50-10.00) 10*3/uL RBC (4.40-5.60) 10*6/uL Hgb (13.0-17.0) g/dL Hct (39.6-50.0) % MCV (80.0-97.0) fL MCH (27.0-32.0) pg MCHC (32.0-37.0) g/dL Plt Count (140-440) 10*3/uL MPV (9.5-12.2) fL Immature Gran % (Auto) % Neutrophils % % Lymphocytes % % Monocytes % % Eosinophils % % Basophils % % Immature Gran # (0.00-0.04) 10*3/uL Neutrophils # (1.80-7.70) 10*3/uL Lymphocytes # (0.90-5.00) 10*3/uL Monocytes # (0.20-1.00) 10*3/uL Eosinophils # (0.04-0.35) 10*3/uL Basophils # (0.00-0.10) 10*3/uL Sodium (137-145) mmol/L Potassium (3.5-5.1) mmol/L Chloride (98-107) mmol/L Carbon Dioxide (22-30) mmol/L Anion Gap mmol/L BUN (9-20) mg/dL Creatinine (0.66-1.25) mg/dL Est GFR (CKD-EPI)AfAm (>60 ml/min/1.73 sqM) Est GFR (CKD-EPI)NonAf (>60 ml/min/1.73 sqM) Glucose (74-99) mg/dL Plasma Lactic Acid Vince (0.7-2.0) mmol/L Calcium (8.4-10.2) mg/dL Magnesium (1.6-2.3) mg/dL Total Bilirubin (0.2-1.3) mg/dL AST (17-59) U/L ALT (4-49) U/L Alkaline Phosphatase (38-126) U/L Troponin I <0.012 (0.000-0.034) ng/mL Total Protein (6.3-8.2) g/dL Albumin (3.5-5.0) g/dL Disposition Clinical Impression: Hypotension Disposition: HOME SELF-CARE Condition: Fair Instructions (If sedation given, give patient instructions): Altered Mental Status (ED) Is patient prescribed a controlled substance at d/c from ED?: No Referrals: Jay Sam MD [Primary Care Provider] - 1-2 days Time of Disposition: 18:35
[2025-06-20 16:19] LABS: Basophils # (A) 0.04 10*3/uL (0.00-0.10); Basophils % (A) 0.8 %; Eosinophils # (A) 0.06 10*3/uL (0.04-0.35); Eosinophils % (A) 1.2 %; HCT 43.7 % (39.6-50.0); HGB 15.3 g/dL (13.0-17.0); Lymphocytes # (A) 0.87 10*3/uL (0.90-5.00); Lymphocytes % (A) 18.0 %; MCH 32.1 pg (27.0-32.0); MCHC 35.0 g/dL (32.0-37.0); MCV 91.6 fL (80.0-97.0); Monocytes # (A) 0.64 10*3/uL (0.20-1.00); Monocytes % (A) 13.3 %; Neutrophils # (A) 3.19 10*3/uL (1.80-7.70); Neutrophils % (A) 66.3 %; Platelet Count 227 10*3/uL (140-440); RBC 4.77 10*6/uL (4.40-5.60); RDW 13.5 % (11.5-14.5); WBC 4.82 10*3/uL (4.50-10.00)
[2025-06-20] MEDS: SODIUM CHLORIDE 0.9% 1,000 ML IV STA (16:20)
[2025-06-20 16:33] LABS: ALT 14 U/L (4-49); AST 19 U/L (17-59); African American GFR (CKD) 85 (>60 ml/min/1.73 sqM); Albumin 3.9 g/dL (3.5-5.0); Alkaline Phosphatase 92 U/L (38-126); Anion Gap 9 mmol/L; Blood Urea Nitrogen 11 mg/dL (9-20); Calcium 9.3 mg/dL (8.4-10.2); Carbon Dioxide 23 mmol/L (22-30); Chloride 104 mmol/L (98-107); Glucose 92 mg/dL (74-99); Magnesium 2.1 mg/dL (1.6-2.3); Non-African American GFR(CKD) 74 (>60 ml/min/1.73 sqM); Potassium 4.1 mmol/L (3.5-5.1); Sodium 136 mmol/L (137-145); Total Protein 6.0 g/dL (6.3-8.2)
--- NOTE | 2025-06-20 17:02 | CT ---
EXAMINATION TYPE: CT brain wo con CT DLP: 1113.3 mGycm, Automated exposure control for dose reduction was used. DATE OF EXAM: 06/20/2025 4:55 PM COMPARISON: MRI brain 04/27/2025, 05/16/2023, CT brain 05/15/2023 CLINICAL INDICATION:Male, 75 years old with history of confusion, Pt c/o some confusion and low blood pressure in the doctor's office and was sent over TECHNIQUE: Brain: Multiple axial CT images of the brain were obtained without IV contrast. . Coronal and sagitta l reformats reviewed. FINDINGS: Brain: Extra-axial spaces: No abnormal extra-axial fluid collections. Ventricular system: Within normal limits Cerebral parenchyma: Cerebral atrophy. No acute intraparenchymal hemorrhage or mass effect. The lindquist -white junction is well differentiated. Scattered hypoattenuating areas are seen within the periventr icular white matter. Cerebellum: Removal left cerebellar lacunar infarct. Mass effect: No evidence of midline shift. Intracranial vasculature: Atherosclerotic calcifications of the intracranial vessels. Soft tissues: Normal. Calvarium/osseous structures: No depressed skull fracture. Paranasal sinuses and mastoid air cells: Clear Visualized orbits: Bilateral aphakia IMPRESSION: 1. No acute intracranial process. 2. Remote left cerebellar hemisphere lacunar injury along with mild nonspecific white matter changes likely secondary to chronic microangiopathy. [facility], , 06/20/2025 4:59 PM
[2025-06-20 17:53] VITALS: RESP 20
[2025-06-20 18:49] VITALS: BP 124/74; PULSE 84
== END 2025-06-20 18:49 | disposition home or self-care (01) ==
LOC: EC 15:33
DX: I95.9 Hypotension, unspecified (principal); Z87.891 Personal history of nicotine dependence; Z88.5 Allergy status to narcotic agent
CPT/HCPCS: 36415; 70450; 80053; 83605; 83735; 84484; 85025; 93005; 96360; 96361; 99285